=== PATIENT | female | born 1945 | race Two or more races ===

== ENCOUNTER 2020-03-02 08:40 | Outpatient (REF) | payer MEDICARE, SELFPAY | END 2020-03-02 08:41 | disposition home or self-care (01) | LOC: HO.LAB 08:40 | PROVIDERS: Visit Provider Internal Medicine | DX: Z20.828 Contact with and (suspected) exposure to other viral communicable diseases (principal) | CPT/HCPCS: 87635 ==

== ENCOUNTER 2020-09-12 09:29 | Day surgery (SDC) | payer MEDICARE, SELFPAY ==
[2020-09-07 10:26] VITALS: BMI 35.4
--- NOTE | 2020-09-07 12:16 | MHC.SHP ---
Pre-Procedural Eval Section A The patient is an INPATIENT: No The History & Physical has been completed within 30 days and I have reviewed it.: Yes Section B Chief Complaint: Cataract Right Eye Allergies: Allergies Allergy/AdvReac Type Severity Reaction Status Date / Time codeine [Codeine] Allergy Mild RASH Verified 09/06/20 14:16 meperidine [From Demerol] Allergy Mild RASH Verified 09/06/20 14:16 Plan Diagnosis/Plan: Unchanged I have reviewed the history and physical and performed a pertinent physical examination on my patient. No changes have occurred unless specified.
--- NOTE | 2020-09-09 09:52 | HO.ANESPROP2 ---
Documented by User: Cyndy Larose 09/09/20 09:52 HPI - Anesthesia Eval Consult details Narrative: 75yo F for Right Cataract Extraction IOL Insertion No prev cataract on record PCP cleared [facility] Past Medical History Medical History Arthritis Depression Diabetes Elevated cholesterol HTN (hypertension) Hx of transfusion of packed red blood cells Surgical History Surgical History H/O colonoscopy History of carpal tunnel release History of evacuation of hematoma History of total bilateral knee replacement Social History Social History Smoking Status: Never smoker Use of substances other than those prescribed or required for medical reasons: No Have you been hit, kicked, punched, or otherwise hurt by someone within the past year? If so, by whom?: No Advance Directives Information Provided: No Recently lost weight without trying: No Nutrition Risks: No Nutritional Risk Meds Allergies Allergy/AdvReac Type Severity Reaction Status Date / Time codeine [Codeine] Allergy Mild RASH Verified 09/06/20 14:16 meperidine [From Demerol] Allergy Mild RASH Verified 09/06/20 14:16 Home Medications Medication Instructions Recorded Confirmed Last Taken Type acetaminophen 1 - 2 tab PO TID PRN 09/06/20 09/07/20 Unknown History amlodipine 2.5 mg PO DAILY 09/06/20 09/07/20 Unknown History atorvastatin 80 mg PO BEDTIME 09/06/20 09/07/20 Unknown History docusate sodium [DOK] 100 mg PO BID 09/06/20 09/07/20 Unknown History hydrochlorothiazide 25 mg PO DAILY 09/06/20 09/07/20 Unknown History metformin 500 mg PO DAILY 09/06/20 09/07/20 Unknown History supsokujmuxz-piahjorh-xjmomi 1 tab PO DAILY 09/06/20 09/07/20 Unknown History [Cerovite Senior] venlafaxine 75 mg PO QAM 09/06/20 09/07/20 Unknown History Exam Exam Date and Time: September 09, 2020 0952 Height,Weight and Vital Signs: Height 5 ft 3 in Weight 90.718 kg Assessment and Plan Assessment Anesthesia Assessment: Chart Reviewed Documented by User: Sharonda Anderson 09/12/20 11:36 PMFSH Past Medical History Medical History Arthritis Depression Diabetes Elevated cholesterol HTN (hypertension) Hx of transfusion of packed red blood cells Family History Family history of problems with anesthesia: No Surgical History Surgical History H/O colonoscopy History of carpal tunnel release History of evacuation of hematoma History of total bilateral knee replacement History of Problems with Anesthesia: No Social History Social History Smoking Status: Never smoker Use of substances other than those prescribed or required for medical reasons: No Have you been hit, kicked, punched, or otherwise hurt by someone within the past year? If so, by whom?: No Advance Directives Information Provided: No Recently lost weight without trying: No Nutrition Risks: No Nutritional Risk Meds Allergies Allergy/AdvReac Type Severity Reaction Status Date / Time codeine [Codeine] Allergy Mild RASH Verified 09/06/20 14:16 meperidine [From Demerol] Allergy Mild RASH Verified 09/06/20 14:16 Home Medications Medication Instructions Recorded Confirmed Last Taken Type acetaminophen 1 - 2 tab PO TID PRN 09/06/20 09/07/20 Unknown History amlodipine 2.5 mg PO DAILY 09/06/20 09/07/20 Unknown History atorvastatin 80 mg PO BEDTIME 09/06/20 09/07/20 Unknown History docusate sodium [DOK] 100 mg PO BID 09/06/20 09/07/20 Unknown History hydrochlorothiazide 25 mg PO DAILY 09/06/20 09/07/20 Unknown History metformin 500 mg PO DAILY 09/06/20 09/07/20 Unknown History bpeoiyhtrqad-qccougqa-vfotrw 1 tab PO DAILY 09/06/20 09/07/20 Unknown History [Cerovite Senior] venlafaxine 75 mg PO QAM 09/06/20 09/07/20 Unknown History Exam Height,Weight and Vital Signs: Vital Signs Temp Pulse Resp BP Pulse Ox 09/12/20 11:02 97.4 F 81 20 149/75 H 98 Pertinent Lab Results Pertinent Lab Results: Lab Results 09/12/20 Range/Units 10:52 POC Glucose 97 (60-115) mg/dL Airway Mallampati Class: II TM Dist: >3cm Neck ROM: Full Heart: RRR Lungs: CTAB Assessment and Plan Assessment Anesthesia Assessment: Anesthesia Plan Discussed and Chart Reviewed Final Anesthetic Review NPO: Yes ASA Class: II Final Preanesthetic Review: No Changes in Pt Med Stat, Meds/Allgs Chart Reviewed, Consent Obtained/Reviewed and Anes Risks/Benef Reviewed Patient Risk: Low Procedure Risk: Low Assessment/Block/Sedation in SS: Assess/Block/Sedation-SS Anesthetic Plan Anesthetic Plan: MAC: Disposition: Standard PACU
[2020-09-12 10:58] LABS: Glucose, Whole Blood 97 mg/dL (60-115)
[2020-09-12 11:02] VITALS: BP 149/75; PULSE 81; RESP 20; TEMP 36.3; O2SAT 98
[2020-09-12] MEDS: Lactated Ringers 500 ML 50 ML IV (11:20)
[2020-09-12] MEDS: Tetracaine HCl/PF 0.5% Oph Sol 4 ML DROPS 1 DROP EYE-RIGHT (11:21)
[2020-09-12] MEDS: Phenylephrine HCL 2.5% Oph SoL 2 ML BOTTLE 1 DROP EYE-RIGHT ×3 (11:22→11:28)
[2020-09-12] MEDS: Tropicamide 1 % Ophth Sol 3 ML BTL 1 DROP EYE-RIGHT ×3 (11:24→11:30)
--- NOTE | 2020-09-12 12:22 | HO.PNOPHT ---
Ophthalmology Procedure Procedure Date of Service: 09/12/20 Ophthalmology Viscoelastic: Neida Zamorat Dual Pack Pro Ophthalmology Lenses: TECHIGINIO [id number] (27) Procedure Notes: PREOPERATIVE DIAGNOSIS: Decreased visual acuity right eye secondary to cataract POSTOPERATIVE DIAGNOSIS: Same PROCEDURE: Right cataract extraction with intraocular lens insertion SURGEON: Edenilson Collier M.D. ANESTHESIA: Topical/MAC ESTIMATED BLOOD LOSS: None COMPLICATIONS: None After obtaining informed consent, the patient was brought to the operating room suite and placed in the supine position. After adequate sedation per anesthesia, topical drops of Tetracaine were given to the right eye. The eye was then prepped and draped in the usual sterile fashion. The operating room microscope was then positioned over the operative eye and a lid speculum placed. A paracentesis was created. Viscoelastic was then instilled into the anterior chamber. A three plane incision was then created temporally, utilizing a 2.85 mm keratome. Capsulotomy forceps were then utilized to create a circular tear capsulotomy. Hydrodissection and hydrodelineation were carried out until adequate mobilization of the nucleus occurred. Phacoemulsification was then utilized to remove the dense central nucleus followed by removal of the cortical material utilizing the automated aspiration irrigation unit. Viscoelastic was instilled into the posterior capsular bag followed by placement of a posterior chamber intraocular lens without difficulty. The residual Viscoelastic was then removed utilizing the automated IA machine. The wound was checked and found to be watertight. The patient tolerated the procedure well and the lid speculum was removed. Intracameral injection of Vigamox 0.1 mL followed by a subtenon injection of Kenalog-40 0.2 mL were administered. The patient will be seen in the a.m.
[2020-09-12 12:26] VITALS: BP 155/70; PULSE 66; RESP 16; TEMP 36.2; O2SAT 97
== END 2020-09-12 12:44 | disposition home or self-care (01) ==
PROVIDERS: Visit Provider Ophthalmology
PROC: (CPT 66985; principal; 2020-09-12 11:40)
DX: H25.11 Age-related nuclear cataract, right eye (principal); H54.7 Unspecified visual loss; Z88.8 Allergy status to other drugs, medicaments and biological substances; E11.22 Type 2 diabetes mellitus with diabetic chronic kidney disease; I12.9 Hypertensive chronic kidney disease with stage 1 through stage 4 chronic kidney disease, or unspecified chronic kidney disease; N18.2 Chronic kidney disease, stage 2 (mild); Z79.84 Long term (current) use of oral hypoglycemic drugs; Z79.899 Other long term (current) drug therapy
CPT/HCPCS: 66984; 82947; J2250; J3010; J3300; V2632

== ENCOUNTER 2020-09-26 09:46 | Day surgery (SDC) | payer MEDICARE, SELFPAY ==
[2020-09-07 10:32] VITALS: BMI 35.4
--- NOTE | 2020-09-21 12:23 | HO.ANESPROP2 ---
Documented by User: Cyndy Larose 09/21/20 12:24 HPI - Anesthesia Eval Consult details Narrative: 75yo F for Left Cataract Extraction IOL Insertion Right eye 5/3 with TIVA: Fent 25, MIdaz 1 PCP cleared [facility] Past Medical History Medical History Arthritis Depression Diabetes Elevated cholesterol HTN (hypertension) Hx of transfusion of packed red blood cells Family History Family history of problems with anesthesia: No Surgical History Surgical History H/O colonoscopy History of carpal tunnel release History of evacuation of hematoma History of total bilateral knee replacement History of Problems with Anesthesia: No Social History Social History Smoking Status: Never smoker Use of substances other than those prescribed or required for medical reasons: No Advance Directives Information Provided: No Recently lost weight without trying: No Eating poorly because of decreased appetite: No Nutrition Risks: No Nutritional Risk Meds Allergies Allergy/AdvReac Type Severity Reaction Status Date / Time codeine [Codeine] Allergy Mild RASH Verified 09/06/20 14:16 meperidine [From Demerol] Allergy Mild RASH Verified 09/06/20 14:16 Home Medications Medication Instructions Recorded Confirmed Last Taken Type acetaminophen 1 - 2 tab PO TID PRN 09/06/20 09/07/20 Unknown History amlodipine 2.5 mg PO DAILY 09/06/20 09/12/20 09/12/20 07:15 History 2.5mg atorvastatin 80 mg PO BEDTIME 09/06/20 09/07/20 Unknown History docusate sodium [DOK] 100 mg PO BID 09/06/20 09/07/20 Unknown History hydrochlorothiazide 25 mg PO DAILY 09/06/20 09/07/20 Unknown History metformin 500 mg PO DAILY 09/06/20 09/07/20 Unknown History uiphugsyfdjn-mcynlqnw-trkkat 1 tab PO DAILY 09/06/20 09/07/20 Unknown History [Cerovite Senior] venlafaxine 75 mg PO QAM 09/06/20 09/12/20 09/12/20 07:15 History 75 mg Exam Exam Date and Time: September 21, 2020 1223 Height,Weight and Vital Signs: Height 5 ft 3 in Weight 90.718 kg Assessment and Plan Assessment Anesthesia Assessment: Chart Reviewed Documented by User: Sharonda Anderson 09/26/20 12:09 PMFSH Past Medical History Medical History Arthritis Depression Diabetes Elevated cholesterol HTN (hypertension) Hx of transfusion of packed red blood cells Surgical History Surgical History H/O colonoscopy History of carpal tunnel release History of evacuation of hematoma History of total bilateral knee replacement Social History Social History Smoking Status: Never smoker Use of substances other than those prescribed or required for medical reasons: No Advance Directives Information Provided: No Recently lost weight without trying: No Eating poorly because of decreased appetite: No Nutrition Risks: No Nutritional Risk Meds Allergies Allergy/AdvReac Type Severity Reaction Status Date / Time codeine [Codeine] Allergy Mild RASH Verified 09/06/20 14:16 meperidine [From Demerol] Allergy Mild RASH Verified 09/06/20 14:16 Home Medications Medication Instructions Recorded Confirmed Last Taken Type acetaminophen 1 - 2 tab PO TID PRN 09/06/20 09/07/20 Unknown History amlodipine 2.5 mg PO DAILY 09/06/20 09/12/20 09/12/20 07:15 History 2.5mg atorvastatin 80 mg PO BEDTIME 09/06/20 09/07/20 Unknown History docusate sodium [DOK] 100 mg PO BID 09/06/20 09/07/20 Unknown History hydrochlorothiazide 25 mg PO DAILY 09/06/20 09/07/20 Unknown History metformin 500 mg PO DAILY 09/06/20 09/07/20 Unknown History eybuqpcvgbsi-kgmqfgoy-prvrsc 1 tab PO DAILY 09/06/20 09/07/20 Unknown History [Cerovite Senior] venlafaxine 75 mg PO QAM 09/06/20 09/12/20 09/12/20 07:15 History 75 mg Exam Height,Weight and Vital Signs: Vital Signs Temp Pulse Resp BP Pulse Ox 09/26/20 11:55 97.6 F 72 20 142/68 H 98 Pertinent Lab Results Pertinent Lab Results: Lab Results 09/26/20 Range/Units 11:17 POC Glucose 105 (60-115) mg/dL Narrative Narrative: Patient states that she has a DNR order in place but would like to suspend this alfonso-operatively. Periop DNR form discussed and signed by patient. Airway Mallampati Class: II TM Dist: >3cm Neck ROM: Full Heart: RRR Lungs: CTAB Assessment and Plan Assessment Anesthesia Assessment: Anesthesia Plan Discussed and Chart Reviewed Final Anesthetic Review NPO: Yes ASA Class: II Final Preanesthetic Review: No Changes in Pt Med Stat, Meds/Allgs Chart Reviewed, Consent Obtained/Reviewed and Anes Risks/Benef Reviewed Patient Risk: Low Procedure Risk: Low Assessment/Block/Sedation in SS: Assess/Block/Sedation-SS Anesthetic Plan Anesthetic Plan: MAC: Disposition: Standard PACU
--- NOTE | 2020-09-21 14:38 | MHC.SHP ---
Pre-Procedural Eval Section A The patient is an INPATIENT: No The History & Physical has been completed within 30 days and I have reviewed it.: Yes Section B Chief Complaint: Cataract Left Eye Allergies: Allergies Allergy/AdvReac Type Severity Reaction Status Date / Time codeine [Codeine] Allergy Mild RASH Verified 09/06/20 14:16 meperidine [From Demerol] Allergy Mild RASH Verified 09/06/20 14:16 Plan Diagnosis/Plan: Unchanged I have reviewed the history and physical and performed a pertinent physical examination on my patient. No changes have occurred unless specified.
[2020-09-26 11:21] LABS: Glucose, Whole Blood 105 mg/dL (60-115)
[2020-09-26] MEDS: Tetracaine HCl/PF 0.5% Oph Sol 4 ML DROPS 1 DROP EYE-LEFT (11:40)
[2020-09-26] MEDS: Tropicamide 1 % Ophth Sol 3 ML BTL 1 DROP EYE-LEFT ×3 (11:41→11:49)
[2020-09-26] MEDS: Phenylephrine HCL 2.5% Oph SoL 2 ML BOTTLE 1 DROP EYE-LEFT ×3 (11:45→11:52)
[2020-09-26] MEDS: Lactated Ringers 500 ML 50 ML IV (11:46)
[2020-09-26 11:55] VITALS: BP 142/68; PULSE 72; RESP 20; TEMP 36.4; O2SAT 98
--- NOTE | 2020-09-26 11:58 | HO.PNOPHT ---
Ophthalmology Procedure Procedure Date of Service: 09/26/20 Ophthalmology Viscoelastic: Healdemarcus Duet Dual Pack Pro Ophthalmology Lenses: TECHIGINIO [id number] (26.5) Procedure Notes: PREOPERATIVE DIAGNOSIS: Decreased visual acuity left eye secondary to cataract POSTOPERATIVE DIAGNOSIS: Same PROCEDURE: Left cataract extraction with intraocular lens insertion SURGEON: Edenilson Collier M.D. ANESTHESIA: Topical/MAC ESTIMATED BLOOD LOSS: None COMPLICATIONS: None After obtaining informed consent, the patient was brought to the operation room suite and placed in the supine position. After adequate sedation per anesthesia, topical drops of Tetracaine were given to the left eye. The eye was then prepped and draped in the usual sterile fashion. The operating room microscope was then positioned over the operative eye and a lid speculum placed. A paracentesis was created. Viscoelastic was then instilled into the anterior chamber. A three plane incision was then created temporally, utilizing a 2.85 mm keratome. Capsulotomy forceps were then utilized to create a circular tear capsulotomy. Hydrodissection and hydrodelineation were carried out until adequate mobilization of the nucleus occurred. Phacoemulsification was then utilized to remove the dense central nucleus followed by removal of the cortical material utilizing the automated aspiration irrigation unit. Viscoat elastic was instilled into the posterior capsular bag followed by placement of a posterior chamber intraocular lens without difficulty. The residual Viscoat elastic was then removed utilizing the automated IA machine. The wound was check and found to be watertight. The patient tolerated the procedure well and the lid speculum was removed. Intracameral injection of Vigamox 0.1 mL followed by a subtenon injection of Kenalog-40 0.2 mL were administered. The patient will be seen in the a.m.
[2020-09-26] MEDS: Acetaminophen 325 MG TABLET 650 MG PO (12:28)
[2020-09-26 12:29] VITALS: BP 138/68; PULSE 74; RESP 16; TEMP 36.7; O2SAT 97
== END 2020-09-26 13:54 | disposition home or self-care (01) ==
PROVIDERS: Visit Provider Ophthalmology
PROC: (CPT 66985; principal; 2020-09-26 12:30)
DX: H25.12 Age-related nuclear cataract, left eye (principal); E11.9 Type 2 diabetes mellitus without complications; I10 Essential (primary) hypertension; Z79.84 Long term (current) use of oral hypoglycemic drugs; Z79.899 Other long term (current) drug therapy
CPT/HCPCS: 66984; 82947; J2250; J3300; V2632

== ENCOUNTER 2020-10-26 12:07 | Outpatient (REF) | payer MEDICARE, SELFPAY ==
--- NOTE | ~2020-10-26 | XR_ITS ---
EXAMINATION: KNEE X-RAY CLINICAL INFORMATION: Left knee pain COMPARISON: Previous x-ray most recent October 2018 TECHNIQUE: AP standing view of both knees and lateral and sunrise view of the left knee FINDINGS: Left: There is a left 2 component knee replacement in satisfactory position. No fracture, dislocation or x-ray evidence of loosening is seen. There is no joint effusion. There is soft tissue arterial calcification. There is a right knee replacement in satisfactory position. XR/XR knee standing BI IMPRESSION: Satisfactory appearance of left knee replacement.
--- NOTE | ~2020-10-26 | XR_ITS ---
EXAMINATION: KNEE X-RAY CLINICAL INFORMATION: Left knee pain COMPARISON: Previous x-ray most recent October 2018 TECHNIQUE: AP standing view of both knees and lateral and sunrise view of the left knee FINDINGS: Left: There is a left 2 component knee replacement in satisfactory position. No fracture, dislocation or x-ray evidence of loosening is seen. There is no joint effusion. There is soft tissue arterial calcification. There is a right knee replacement in satisfactory position. XR/XR knee LT 2V IMPRESSION: Satisfactory appearance of left knee replacement.
== END 2020-10-26 12:08 | disposition home or self-care (01) ==
LOC: HO.XRAY 12:07
PROVIDERS: Visit Provider Orthopaedic Surgery
DX: Z96.653 Presence of artificial knee joint, bilateral (principal)
CPT/HCPCS: 73560; 73565; 99212

== ENCOUNTER 2020-11-12 16:01 | Emergency (ER) | payer MEDICARE, SELFPAY ==
--- NOTE | ~2020-11-12 | XR_ITS ---
EXAMINATION: XR CHEST CLINICAL INFORMATION: Chest and back pain COMPARISON: September 19, 2019 TECHNIQUE: 2 views of the chest were obtained. FINDINGS: There is no evidence of acute parenchymal disease, pneumothorax, or pleural effusion. Heart normal size. No evidence of pulmonary edema. No thoracic vertebral body compression fracture is appreciated. There has been resection of the distal right clavicle with what appears to be some widening of the coracoclavicular space. XR/XR chest 2V IMPRESSION: No acute disease.
--- NOTE | ~2020-11-12 | CT_ITS ---
EXAMINATION: CT ANGIOGRAM OF THE CHEST WITH AND WITHOUT CONTRAST (CT PULMONARY ANGIOGRAM FOR PE) CLINICAL INFORMATION: Chest and back pain, tachycardia COMPARISON: Portions of a previous study 09/19/19 TECHNIQUE: Prior to contrast administration, noncontrast localization images were obtained. Subsequently, multidetector volumetric imaging was performed from the thoracic inlet to below the diaphragms following the administration of 70 mL Omnipaque 350 intravenous contrast. No contrast reaction reported Sagittal, coronal, and MIP oblique sagittal reformatted images were obtained on the CT workstation, uploaded to PACS, and reviewed. This CT examination was performed using dose optimization techniques as appropriate, variously including the following: *Automated exposure control *Adjustment of mA and/or kV according to patient size (this includes techniques or standardized protocols for targeted exams where dose is matched to indication/reason for exam; i.e. extremities or head) *Use of iterative reconstruction technique Total exam dose-length product 389 mGy-cm FINDINGS: Digital Postdoctoral Research Fellow: Devices overlie the patient. No large area of consolidation or alveolar edema. QUALITY OF STUDY/CONTRAST BOLUS: Satisfactory. PULMONARY ARTERIES: No pulmonary embolus demonstrated. The main pulmonary arteries are normal caliber. THORACIC AORTA: No aneurysm or dissection. LUNG: No consolidation. No edema. Minor nonspecific dependent lung base densities could be atelectasis. PLEURA: No pleural effusion or pneumothorax. MEDIASTINUM: There are no enlarged mediastinal or hilar lymph nodes. There is no suspicious abnormality of the esophagus. No pericardial fluid. No evidence of septal bowing or right heart strain. CHEST WALL/AXILLA: No axillary or internal mammary lymphadenopathy. OSSEOUS STRUCTURES: No acute or suspicious osseous abnormality. Chronic appearing abnormality of the right AC joint. UPPER ABDOMEN: Unremarkable. No reflux of contrast into the hepatic veins to suggest elevated right heart pressures. CT/CT angio chest PE protocol IMPRESSION: No pulmonary embolus demonstrated. No pneumonia or edema. VTE: negative
[2020-11-12 16:06] VITALS: BP 183/78; PULSE 92; RESP 18; TEMP 36.7; O2SAT 98; BMI 34.4
--- NOTE | 2020-11-12 16:37 | ED_ITS ---
HPI - General Adult General Chief complaint: General Medical Stated complaint: Back and both side pain Time Seen by Provider: 11/12/20 16:37 Source: patient and family Mode of arrival: ambulatory Limitations: language barrier History of Present Illness HPI narrative: 75-year-old female with past medical history of diabetes, hypertension, hyperlipidemia, and depression presents with 3 days of thoracic back pain radiating to bilateral flanks with shortness of breath and palpitations. She states this feels like a pulling pain throughout her back that gets worse on inspiration. She did not take any hormones, does not report any recent flights, and denies chest pressure, abdominal pain, abdominal distention, nausea, vomiting, diarrhea, constipation, dysuria, hematuria, melena, hematochezia, edema, weakness, dizziness, lightheadedness, and loss of balance. Onset (ago): day(s) ( Three) Location: back Radiation: flank Severity: moderate Severity scale (1-10): 6 Quality: aching and crushing Pain Consistency: constant Relieving factors: rest Exacerbating factors: movement Associated symptoms: chest pain and shortness of breath Treatments prior to arrival: none Related Data Home Medications Medication Instructions Recorded Confirmed acetaminophen 1 - 2 tab PO TID PRN 09/06/20 09/07/20 amlodipine 2.5 mg PO DAILY 09/06/20 09/12/20 atorvastatin 80 mg PO BEDTIME 09/06/20 09/07/20 docusate sodium [DOK] 100 mg PO BID 09/06/20 09/07/20 hydrochlorothiazide 25 mg PO DAILY 09/06/20 09/07/20 metformin 500 mg PO DAILY 09/06/20 09/07/20 [id number] 1 tab PO DAILY 09/06/20 09/07/20 [Cerovite Senior] venlafaxine 75 mg PO QAM 09/06/20 09/12/20 Previous Rx's Medication Instructions Recorded ibuprofen 600 mg PO TID PRN #30 tab 11/12/20 Allergies Allergy/AdvReac Type Severity Reaction Status Date / Time codeine [Codeine] Allergy Mild RASH Verified 11/12/20 16:06 meperidine [From Demerol] Allergy Mild RASH Verified 11/12/20 16:06 Review of Systems Review of Systems: Constitutional: No Fever, No Chills ENT/Mouth: No Ear Pain, No Hoarseness, No sore throat Eyes: No Eye Pain, No Swelling, No Redness, No Foreign Body Cardiovascular: thoracic back pain, No Chest Pain, No SOB Respiratory: No Cough, No Dyspnea Gastrointestinal: bilateral flank pain, No Nausea, No Vomiting, No Diarrhea, No abdominal Pain Genitourinary: No Dysuria, No Hematuria Musculoskeletal: positive back pain, No Myalgias, No Joint Swelling Skin: No Skin lacerations, No rash Neuro: No Weakness, No Numbness, No Paresthesias, No Loss of Consciousness, No Dizziness, No Headache Psych: No Anxiety/Panic, No Depression Heme/Lymph: no easy bruising, no Lymphadenopathy Endocrine: No Polyuria, No Polydipsia Yes all other systems are reviewed and are negative PMFSH Past Medical History Attestation statement: The following information was validated with the patient. Source: old records reviewed Medical History Arthritis Depression Diabetes Elevated cholesterol HTN (hypertension) Hx of transfusion of packed red blood cells Surgical History H/O colonoscopy History of carpal tunnel release History of evacuation of hematoma History of total bilateral knee replacement Social History Social History Alcohol intake: never Smoked in Last 30 Days: No Use of substances other than those prescribed or required for medical reasons: No Advance Directives: No Advance Directives Information Provided: Yes Physical Exam Vital Signs: Vital Signs: Last Vital Signs Temp 98.8 F 11/12/20 19:37 Pulse 84 11/12/20 22:10 Resp 16 11/12/20 22:10 BP 142/68 H 11/12/20 22:10 Pulse Ox 97 11/12/20 22:10 Body Mass Index 34.4 Appearance: Alert. Oriented X3. moderate distress. Head: Normal external exam. Normocephalic. Atraumatic. No Welsh signs noted. No raccoon eyes noted Eyes: PERRLA. EOMI. Conjunctiva and sclera normal. Eyelids normal. ENT: TM's Normal. Pharynx normal. Uvula midline. Moist mucous membranes. No trismus noted. No drooling noted. No muffled voice noted. Neck: Normal inspection. Neck supple. No adenopathy. Thyroid Normal. No meningeal signs. No neck mass noted. CVS: tachycardic heart rate and rhythm. Heart sound normal. No murmurs noted. Pulses equal to all extremities. Respiratory: No respiratory distress. Pain on inspiration. Breath sounds normal. No wheezes/rales/rhonchi noted. Chest nontender. No accessory muscle usage noted or decreased air movement noted. Abdomen: Soft and nontender. Bowel sounds normal in all 4 quadrants. No distention noted. No organomegaly noted. No visible injury noted. Back: No CVA tenderness. Full range of motion noted. no vertebral tenderness noted, Skin: Skin warm and dry. Normal skin color. Normal skin turgor. No rashes/lesions/lacerations noted. Extremities: No lower extremity edema. Extremities exhibit normal range of motion. Extremities nontender. Neuro: cranial nerves 2-12 intact, no focal neural deficits, strength 5/5 to all extremities, No motor deficit. No sensory deficit. Course Course Course Narrative: 75-year-old female presents with thoracic back pain with radiation to bilateral flanks, she does not have any abdominal tenderness, no CVA tenderness, patient does have shortness of breath and tachycardia. Will o rder CT PE to rule out embolism. Rule out ACS. AST, ALT, lipase are negative. EKG normal sinus, troponin 3.7, urinalysis is negative. Pain has completely resolved after Zofran and Toradol. This is most likely musculoskeletal. CT scan of the chest is negative for PE. Patient was advised to follow up with primary care physician. automotive parts interpreter utilized for all correspondence. Google translate utilized for discharge instructions. Medical Decision Making Differential Diagnosis Differential Diagnosis: AAA, cholelithiasis, cholecystitis, pancreatitis, ACS, musculoskeletal Medical Records Medical records reviewed: Yes I reviewed the patient's medical records. Lab Data Lab results reviewed: Yes I reviewed the patient's lab results. Result diagrams: 11/12/20 17:32 11/12/20 20:20 Labs: Lab Results 11/12/20 11/12/20 11/12/20 Range/Units 17:32 17:32 17:32 WBC 10.9 H (4.8-10.8) X10*3/uL RBC 4.61 (4.20-5.50) X10*6/uL Hgb 13.8 (12.0-16.0) g/dl Hct 41.7 (37-47) % MCV 90.5 (80-98) fL MCH 29.9 (27.0-33.0) pg MCHC 33.1 (31.0-35.0) g/dl RDW 12.5 (11.0-16.0) % Plt Count 275 (160-400) X10*3/uL MPV 11.2 (9.4-12.3) fL Immature Gran % (Auto) 0.4 (0.0-0.4) % Neut % (Auto) 71.1 (45-73) % Lymph % (Auto) 20.8 (20-40) % Arroyo % (Auto) 6.5 (2-11) % Eos % (Auto) 0.9 (0-4) % Baso % (Auto) 0.3 (0-2) % Lymph # (Auto) 2.3 (1.2-4.9) X10*3/uL [place] # (Auto) 0.7 (0.1-1.2) X10*3/uL Eos # (Auto) 0.1 (0.0-0.4) X10*3/uL Baso # (Auto) 0.0 (0.0-0.2) X10*3/uL Abs Immat Gran (auto) 0.04 H (0.00-0.03) X10*3/uL Absolute Neuts (auto) 7.8 (2.0-8.3) X10*3/uL Absolute Nucleated RBC 0.000 (0.0-0.012) X10*3/uL Nucleated RBC % (auto) 0.0 (0.0-0.2) /100WBC Sodium (135-145) mmol/L Potassium (3.3-5.1) mmol/L Chloride (96-108) mmol/L Carbon Dioxide (22-29) mmol/L Anion Gap (12-20) BUN (9-16) mg/dL Creatinine (0.5-1.4) mg/dL Estim Creat Clear Calc Estimated GFR Random Glucose (60-115) mg/dL Calcium (8.4-10.2) mg/dL Magnesium (1.6-2.6) mg/dL Total Bilirubin (0.0-1.0) mg/dL Direct Bilirubin (0.0-0.5) mg/dL AST (5-31) U/L ALT (0-31) U/L Alkaline Phosphatase (39-117) U/L Troponin I High Sens 3.7 (<3.5-17.0) ng/L Total Protein (6.5-8.0) g/dL Albumin (3.5-5.0) g/dL Lipase (8-78) U/L Urine Color YELLOW Urine Appearance CLEAR Urine pH 7.0 (5.0-8.0) Ur Specific Esmond 1.015 (1.005-1.025) Urine Protein NEG (NEG-TRACE) MG/DL Urine Glucose (UA) NEG (NEG) MG/DL Urine Ketones NEG (NEG) MG/DL Urine Blood TRACE (NEG) Urine Nitrite NEG (NEG) Ur Leukocyte Esterase NEG (NEG) Urine RBC 0-2 (0) /HPF Urine WBC 0-2 (0-4) /HPF Ur Squamous Epith Cells TRACE /LPF Urine Bacteria NONE /LPF 11/12/20 Range/Units 20:20 WBC (4.8-10.8) X10*3/uL RBC (4.20-5.50) X10*6/uL Hgb (12.0-16.0) g/dl Hct (37-47) % MCV (80-98) fL MCH (27.0-33.0) pg MCHC (31.0-35.0) g/dl RDW (11.0-16.0) % Plt Count (160-400) X10*3/uL MPV (9.4-12.3) fL Immature Gran % (Auto) (0.0-0.4) % Neut % (Auto) (45-73) % Lymph % (Auto) (20-40) % Arroyo % (Auto) (2-11) % Eos % (Auto) (0-4) % Baso % (Auto) (0-2) % Lymph # (Auto) (1.2-4.9) X10*3/uL [place] # (Auto) (0.1-1.2) X10*3/uL Eos # (Auto) (0.0-0.4) X10*3/uL Baso # (Auto) (0.0-0.2) X10*3/uL Abs Immat Gran (auto) (0.00-0.03) X10*3/uL Absolute Neuts (auto) (2.0-8.3) X10*3/uL Absolute Nucleated RBC (0.0-0.012) X10*3/uL Nucleated RBC % (auto) (0.0-0.2) /100WBC Sodium 139 (135-145) mmol/L Potassium 3.2 L (3.3-5.1) mmol/L Chloride 98 (96-108) mmol/L Carbon Dioxide 29 (22-29) mmol/L Anion Gap 15 (12-20) BUN 12 (9-16) mg/dL Creatinine 0.75 (0.5-1.4) mg/dL Estim Creat Clear Calc 70.4 Estimated GFR > 60 Random Glucose 117 H (60-115) mg/dL Calcium 9.5 (8.4-10.2) mg/dL Magnesium 2.1 (1.6-2.6) mg/dL Total Bilirubin 0.8 (0.0-1.0) mg/dL Direct Bilirubin 0.4 (0.0-0.5) mg/dL AST 14 (5-31) U/L ALT 13 (0-31) U/L Alkaline Phosphatase 108 (39-117) U/L Troponin I High Sens (<3.5-17.0) ng/L Total Protein 7.6 (6.5-8.0) g/dL Albumin 4.3 (3.5-5.0) g/dL Lipase 58 (8-78) U/L Urine Color Urine Appearance Urine pH (5.0-8.0) Ur Specific Esmond (1.005-1.025) Urine Protein (NEG-TRACE) MG/DL Urine Glucose (UA) (NEG) MG/DL Urine Ketones (NEG) MG/DL Urine Blood (NEG) Urine Nitrite (NEG) Ur Leukocyte Esterase (NEG) Urine RBC (0) /HPF Urine WBC (0-4) /HPF Ur Squamous Epith Cells /LPF Urine Bacteria /LPF Imaging Data CT PE: Attestation: I personally reviewed and interpreted this imaging study as follows: Radiologist's impression: EXAMINATION: CT ANGIOGRAM OF THE CHEST WITH AND WITHOUT CONTRAST (CT PULMONARY ANGIOGRAM FOR PE) CLINICAL INFORMATION: Chest and back pain, tachycardia COMPARISON: Portions of a previous study 09/19/19 TECHNIQUE: Prior to contrast administration, noncontrast localization images were obtained. Subsequently, multidetector volumetric imaging was performed from the thoracic inlet to below the diaphragms following the administration of 70 mL Omnipaque 350 intravenous contrast. No contrast reaction reported Sagittal, coronal, and MIP oblique sagittal reformatted images were obtained on the CT workstation, uploaded to PACS, and reviewed. This CT examination was performed using dose optimization techniques as appropriate, variously including the following: *Automated exposure control *Adjustment of mA and/or kV according to patient size (this includes techniques or standardized protocols for targeted exams where dose is matched to indication/reason for exam; i.e. extremities or head) *Use of iterative reconstruction technique Total exam dose-length product 389 mGy-cm FINDINGS: Digital Statistical Geneticist: Devices overlie the patient. No large area of consolidation or alveolar edema. QUALITY OF STUDY/CONTRAST BOLUS: Satisfactory. PULMONARY ARTERIES: No pulmonary embolus demonstrated. The main pulmonary arteries are normal caliber. THORACIC AORTA: No aneurysm or dissection. LUNG: No consolidation. No edema. Minor nonspecific dependent lung base densities could be atelectasis. PLEURA: No pleural effusion or pneumothorax. MEDIASTINUM: There are no enlarged mediastinal or hilar lymph nodes. There is no suspicious abnormality of the esophagus. No pericardial fluid. No evidence of septal bowing or right heart strain. CHEST WALL/AXILLA: No axillary or internal mammary lymphadenopathy. OSSEOUS STRUCTURES: No acute or suspicious osseous abnormality. Chronic appearing abnormality of the right AC joint. UPPER ABDOMEN: Unremarkable. No reflux of contrast into the hepatic veins to suggest elevated right heart pressures. CT/CT angio chest PE protocol IMPRESSION: No pulmonary embolus demonstrated. No pneumonia or edema. VTE: negative Chest x-ray: Attestation: I personally reviewed and interpreted this imaging study as follows: Radiologist's impression: EXAMINATION: XR CHEST CLINICAL INFORMATION: Chest and back pain COMPARISON: September 19, 2019 TECHNIQUE: 2 views of the chest were obtained. FINDINGS: There is no evidence of acute parenchymal disease, pneumothorax, or pleural effusion. Heart normal size. No evidence of pulmonary edema. No thoracic vertebral body compression fracture is appreciated. There has been resection of the distal right clavicle with what appears to be some widening of the coracoclavicular space. XR/XR chest 2V IMPRESSION: No acute disease. ECG Data Attestation: I personally reviewed and interpreted this ECG as follows: Prior ECG tracings: available for review Interpretation: Vent. rate 79 BPM MS interval 148 ms QRS duration 86 ms QT/QTc 392/449 ms P-R-T axes 70 -29 49 Normal sinus rhythm Junctional ST depressio n, probably normal Borderline ECG When compared with ECG of 19-SEP-2019 09:44, ST now depressed in Lateral leads Scores Heart Score History: -0- slightly suspicious ECG: -2- significant ST-deviation Age: -1- >45 - <65 Risk factory: -1- 1 or 2 risk factors Troponin: -0- < or = normal limit Score: 4 Risk: 16.6% Discharge Plan Discharge Clinical Impression: Non-cardiac chest pain Back pain Qualifiers: Back pain location: thoracic back pain Chronicity: acute Back pain laterality: midline Qualified Code(s): M54.6 - Pain in thoracic spine Patient Disposition: Home, Self-Care Instructions: Chest Pain (ED), Musculoskeletal Pain (ED), Thoracic Pain (ED) Additional Instructions: fue evaluado por dolor en el pecho y la espalda tor?cica. La angiograf?a por TC es negativa para hallazgos agudos. EKG es un ritmo sinusal normal. Las enzimas card?acas son negativas. Staci valores de laboratorio no fueron notables. [place] posiblemente podr?a ser un dolor muscular esquel?janny. Julia un seguimiento con patel m?dico de atenci?n primaria para renate evaluaci?n adicional. Mikey por elegir hayden departamento de emergencias para patel evaluaci?n. Julia un seguimiento con patel m?dico de atenci?n primaria seg?n sea necesario. Regrese al departamento de emergencias por cualquier s?ntoma nuevo, preocupante o que empeore. you were evaluated for chest and thoracic back pain. CT angiogram is negative for acute findings. EKG is normal sinus rhythm. Cardiac enzymes are negative. Your lab values were unremarkable. This could possibly be muscular skeletal pa in. Please follow-up with her primary care physician for further evaluation. Thank you for choosing this emergency department for evaluation. Please follow-up with primary care physician as needed. Return to the emergency department for any new, concerning, or worsening symptoms. Prescriptions: New ibuprofen 600 mg tablet 600 mg PO TID PRN (Reason: pain) Qty: 30 RF: 0 No Action atorvastatin 80 mg tablet 80 mg PO BEDTIME RF: 0 venlafaxine 75 mg capsule,extended release 24hr 75 mg PO QAM RF: 0 amlodipine 2.5 mg tablet 2.5 mg PO DAILY RF: 0 acetaminophen 500 mg tablet 1 - 2 tab PO TID PRN (Reason: Pain) RF: 0 docusate sodium [DOK] 100 mg capsule 100 mg PO BID RF: 0 hydrochlorothiazide 25 mg tablet 25 mg PO DAILY RF: 0 metformin 500 mg tablet extended release 24 hr 500 mg PO DAILY RF: 0 Cerovite Senior Tablet 1 tab PO DAILY RF: 0 Interventions: ED Discharge Assessment Last Done: 11/12/20 22:11 Discharge Date/Time: 11/12/20 22:12
--- NOTE | 2020-11-12 16:47 | ECG_ITS ---
Test Reason : BACK PAIN Blood Pressure : / mmHG Vent. Rate : 079 BPM Atrial Rate : 079 BPM P-R Int : 148 ms QRS Dur : 086 ms QT Int : 392 ms P-R-T Axes : 070 -29 049 degrees QTc Int : 449 ms Normal sinus rhythm Borderline ECG When compared with ECG of 19-SEP-2019 09:44, ST now depressed in Lateral leads Referred By: Eliza García Electronically Signed By:CLINT CAUSEY MD
[2020-11-12] MEDS: ondansetron HCL 4 MG/2 ML VIAL IVPUSH (17:33)
[2020-11-12] MEDS: Ketorolac Tromethamine 30 MG/ML VIAL IVPUSH (17:33)
[2020-11-12 17:37] VITALS: BP 153/77; PULSE 86; RESP 18; TEMP 37.3; O2SAT 98
--- NOTE | 2020-11-12 17:38 | PC.NURSE ---
describing upper mid back pain radiating around chest to flanks.
--- NOTE | 2020-11-12 17:39 | PC.NURSE ---
denies dizziness. skin pwd. no chest pain at this time. aware ofplan of care.
--- NOTE | 2020-11-12 17:40 | PC.NURSE ---
bps are the same bilat. 153/77 on left. 153/76 on right
[2020-11-12 17:47] LABS: MANUAL DIFF FLAG NO
[2020-11-12 17:49] LABS: Basophils Percent Auto 0.3 % (0-2); Eosinophils Absolute Auto 0.1 X10*3/uL (0.0-0.4); Eosinophils Percent Auto 0.9 % (0-4); Hematocrit 41.7 % (37-47); Hemoglobin 13.8 g/dl (12.0-16.0); Imm Gran Abs Auto 0.04 X10*3/uL (0.00-0.03); Imm Gran Pct Auto 0.4 % (0.0-0.4); Lymphocytes Absolute Auto 2.3 X10*3/uL (1.2-4.9); Lymphocytes Percent Auto 20.8 % (20-40); Mean Corpuscular HGB Conc 33.1 g/dl (31.0-35.0); Mean Corpuscular Hemoglobin 29.9 pg (27.0-33.0); Mean Corpuscular Volume 90.5 fL (80-98); Mean Platelet Volume 11.2 fL (9.4-12.3); Monocytes Absolute Auto 0.7 X10*3/uL (0.1-1.2); Monocytes Percent Auto 6.5 % (2-11); Neutrophils Absolute Auto 7.8 X10*3/uL (2.0-8.3); Neutrophils Percent Auto 71.1 % (45-73); Platelet Count 275 X10*3/uL (160-400); Red Blood Count 4.61 X10*6/uL (4.20-5.50); Red Cell Distribution Width 12.5 % (11.0-16.0); White Blood Count 10.9 X10*3/uL (4.8-10.8)
[2020-11-12 18:22] LABS: Troponin-I High Sensitivity 3.7 ng/L (<3.5-17.0)
[2020-11-12 18:38] LABS: Glucose Urine UA NEG (NEG); Leukocyte Esterase Urine NEG (NEG); Nitrite Urine NEG (NEG); Specific Gravity - Urine 1.015 (1.005-1.025); Urine Blood TRACE (NEG); Urine Ketones NEG (NEG); Urine Protein NEG (NEG-TRACE)
[2020-11-12 18:50] LABS: Appearance Urine CLEAR; Color Urine YELLOW
[2020-11-12 19:37] VITALS: BP 142/65; PULSE 81; RESP 15; TEMP 37.1; O2SAT 96
--- NOTE | 2020-11-12 20:13 | PC.NURSE ---
This RN awaiting metabolic panel to result, notes it is not listed as rec'd in computer, calls lab to confirm receipt of labs. Per Joanie in lab, tube was hemolyzed and states we were just about to call to let you know. Labs to be recollected
[2020-11-12 20:23] LABS: RBC Urine 0-2 /HPF (0); Squamous Epithelial Cell Urine TRACE /LPF; WBC Urine 0-2 /HPF (0-4)
[2020-11-12 20:57] LABS: Alanine Aminotransferase 13 U/L (0-31); Albumin Level 4.3 g/dL (3.5-5.0); Alkaline Phosphatase 108 U/L (39-117); Anion Gap 15 (12-20); Aspartate Amino Transferase 14 U/L (5-31); Bilirubin Direct 0.4 mg/dL (0.0-0.5); Bilirubin Total 0.8 mg/dL (0.0-1.0); Blood Urea Nitrogen 12 mg/dL (9-16); Calcium 9.5 mg/dL (8.4-10.2); Carbon Dioxide 29 mmol/L (22-29); Chloride 98 mmol/L (96-108); Creatinine Clr Calc Pharmacy 70.4; Estimated Glomerular Filt Rate > 60; Glucose Random 117 mg/dL (60-115); Lipase 58 U/L (8-78); Magnesium 2.1 mg/dL (1.6-2.6); Potassium 3.2 mmol/L (3.3-5.1); Sodium 139 mmol/L (135-145); Total Protein 7.6 g/dL (6.5-8.0)
[2020-11-12] MEDS: iohexoL 350 MG/ML 100 ML INFUS..BTL IV (21:21)
[2020-11-12 22:10] VITALS: BP 142/68; PULSE 84; RESP 16; O2SAT 97
== END 2020-11-12 22:12 | disposition home or self-care (01) ==
PROVIDERS: Nurse Practitioner Family; Emergency Provider Internal Medicine
DX: R07.89 Other chest pain (principal); M54.6 Pain in thoracic spine; I10 Essential (primary) hypertension; E11.9 Type 2 diabetes mellitus without complications; Z79.84 Long term (current) use of oral hypoglycemic drugs; Z79.899 Other long term (current) drug therapy
CPT/HCPCS: 36415; 71046; 71275; 80048; 80076; 81001; 83690; 83735; 84484; 85025; 93005; 96374; 96375; 99285; J1885; J2405; Q9967

== ENCOUNTER 2020-11-23 08:54 | Outpatient (REF) | payer MEDICARE, SELFPAY ==
--- NOTE | ~2020-11-23 | MM_ITS ---
EXAMINATION: MM SCREENING DIGITAL BREAST TOMOSYNTHESIS, BILATERAL CLINICAL INFORMATION: Screening. Asymptomatic. The lifetime risk of breast cancer based on the Tyrer-Cuzick Model is 3%. COMPARISON: Mammography: 03/19/2019, 12/16/2017, 11/29/2016 TECHNIQUE: Digital breast tomosynthesis is performed in both the craniocaudal and mediolateral oblique views along with computer-aided detection (CAD). Synthesized 2D images are generated from the tomosynthesis. Additional left CC view is provided. FINDINGS: There are scattered areas of fibroglandular density (ACR BI-RADS breast composition Category b). There are no significant masses, abnormal calcifications, or other abnormalities. There are scattered bilateral vascular and some rim calcifications. No developing density. The axilla and skin contours are unremarkable. No significant changes. MM/MM tomosynthesis screening BI IMPRESSION: No mammographic evidence of malignancy. ASSESSMENT: BI-RADS 1: Negative RECOMMENDATION: Routine annual mammography screening. This patient's information was entered into a reminder system with a target due date for their next mammogram.
--- NOTE | ~2020-11-23 | MM_ITS ---
EXAMINATION: BONE DENSITOMETRY CLINICAL INDICATION: Screening for osteoporosis. COMPARISON: Previous BD dated 01/28/2015 and baseline BD dated 10/25/2006. TECHNIQUE: Using a [employer] DXA System (software version: 13.1) manufactured by [employer], dual-energy x-ray absorptiometry was performed of the lumbar spine and left hip. The images are of good technical quality. Summary results are attached. FINDINGS: AP SPINE L1-L2 (excluding L3 and L4): The data of L1-L4 has been changed to exclude the L3 and L4 vertebral bodies, because degenerative changes at these levels may cause overestimation of lumbar spine density. Current: BMD 1.254 g/cm2, Z-score 1.6, T-score 0.7, normal, 8.7% increase from previous, 9.5% increase from baseline (<5% change is not significant). Prior: BMD 1.154 g/cm2. Baseline: BMD 1.145 g/cm2. LEFT FEMUR, NECK: Current: BMD 0.934 g/cm2, Z-score 0.5, T-score -0.7, normal. Prior: BMD 0.914 g/cm2. Baseline: BMD 1.004 g/cm2. LEFT FEMUR, TOTAL: Current: BMD 1.001 g/cm2, Z-score 0.9, T-score 0.0, normal, 2.2% increase from previous, 7.6% decrease from baseline (<5% change is not significant). Prior: BMD 0.979 g/cm2. Baseline: BMD 1.083 g/cm2. IDENTIFIED RISK FACTORS: Height loss, thiazide, menopause. HISTORY OF FRACTURE: None listed. MEDICATIONS: None listed. MM/XR DEXA axial skeleton IMPRESSION: 1. DIAGNOSIS: Normal bone density based on the lowest T-score value of -0.7 in the femoral neck applying World Health Organization criteria. 2. 10-YEAR FRACTURE RISK PREDICTION, FRAX: Major osteoporotic fracture (clinical spine, forearm, hip or shoulder) 4.5%. Hip fracture 0.5%. 3. Treatment Recommendations: NOF guidelines recommend consideration for treatment in postmenopausal women and men age 50 and older presenting with the following: -A hip or vertebral (clinical or morphometric) fracture. -T-score less than or equal to -2.5 at the femoral neck or spine after appropriate evaluation to exclude secondary causes. -Low bone mass at the hip or spine and a 10-year fracture probability by FRAX of greater than or equal to 3% for hip fracture or greater than or equal to 20% for major osteoporotic fracture based on the [place] adapted WHO algorithm. 4. Other Recommendations: All treatment decisions require clinical judgment and consideration of individual patient factors, including patient preferences, comorbidities, previous drug use, risk factors not captured in the FRAX model (e.g. frailty, falls, vitamin D deficiency, increased bone turnover, interval significant decline in bone density) and possible under or overestimation of fracture risk by FRAX. FUTURE SCAN RECOMMENDATION: People with diagnosed cases of osteoporosis or at high risk for fracture should have regular bone mineral density tests. For patients eligible for Medicare, routine testing is allowed once every 2 years. The testing frequency can be increased to one year for patients who have rapidly progressing disease, those who are receiving or discontinuing medical therapy to restore bone mass, or have additional risk factors.
== END 2020-11-23 08:55 | disposition home or self-care (01) ==
LOC: HO.MAMMO 08:54
PROVIDERS: Visit Provider Nurse Practitioner Family
DX: Z12.31 Encounter for screening mammogram for malignant neoplasm of breast (principal); Z13.820 Encounter for screening for osteoporosis; Z78.0 Asymptomatic menopausal state; Z71.89 Other specified counseling; Z80.3 Family history of malignant neoplasm of breast
CPT/HCPCS: 77063; 77067; 77080

== ENCOUNTER 2021-01-05 10:28 | Emergency (ER) | payer MEDICARE, SELFPAY ==
--- NOTE | ~2021-01-05 | XR_ITS ---
EXAMINATION: XR ANKLE, LEFT XR FOOT, LEFT CLINICAL INFORMATION: Pain and swelling. Pain when ambulating. COMPARISON: Radiographs left foot 08/06/2012. TECHNIQUE: 2 views left ankle, 2 views left foot, and a lateral view of the combined ankle and foot in large [id number] image are performed. There are total of 5 views. FINDINGS: There is soft tissue swelling overlying both malleoli, greater medial side. The malleoli appear intact and the ankle mortise is symmetric. There is no ankle fracture or dislocation or visible ankle capsular effusion. The talar dome shows no osteochondral lesion. The subtalar joint is unremarkable. There are bulky large posterior and moderate bulky plantar calcaneal spurs similar to prior exam 2013. Again, there is scattered linear mineralization within the proximal to mid plantar fascia. No erosive change. Mild dorsal spurring distal talus again seen. The midfoot and forefoot show no fracture or dislocation or focal arthropathy. XR/XR ankle LT 2V IMPRESSION: 1. No fracture or dislocation or destructive process. 2. Bulky posterior and plantar calcaneal spurs with chronic mineralization proximal to mid plantar fascia.
--- NOTE | ~2021-01-05 | XR_ITS ---
EXAMINATION: XR ANKLE, LEFT XR FOOT, LEFT CLINICAL INFORMATION: Pain and swelling. Pain when ambulating. COMPARISON: Radiographs left foot 08/06/2012. TECHNIQUE: 2 views left ankle, 2 views left foot, and a lateral view of the combined ankle and foot in large [id number] image are performed. There are total of 5 views. FINDINGS: There is soft tissue swelling overlying both malleoli, greater medial side. The malleoli appear intact and the ankle mortise is symmetric. There is no ankle fracture or dislocation or visible ankle capsular effusion. The talar dome shows no osteochondral lesion. The subtalar joint is unremarkable. There are bulky large posterior and moderate bulky plantar calcaneal spurs similar to prior exam 2013. Again, there is scattered linear mineralization within the proximal to mid plantar fascia. No erosive change. Mild dorsal spurring distal talus again seen. The midfoot and forefoot show no fracture or dislocation or focal arthropathy. XR/XR foot LT 2V IMPRESSION: 1. No fracture or dislocation or destructive process. 2. Bulky posterior and plantar calcaneal spurs with chronic mineralization proximal to mid plantar fascia.
[2021-01-05 10:49] VITALS: BP 139/76; PULSE 100; RESP 18; TEMP 36.7; O2SAT 98; BMI 32.9
--- NOTE | 2021-01-05 10:57 | ED.GENADULT ---
HPI - General Adult General Chief complaint: Extremity Injury, Lower Stated complaint: left ankle swollen Time Seen by Provider: 01/05/21 10:57 Source: patient Mode of arrival: ambulatory Limitations: language barrier (shiatsu therapist used) History of Present Illness HPI narrative: 75-year-old female here today for complaining of left inner ankle redness and pain. Patient denies injury or any insect by. Denies any history of gout. Patient reports that her pain is the worst when she is trying to touch the area or when she is walking. Patient reports that even when she is sleeping the sheets are touching her foot it feels painful. Patient denies any other symptoms. Related Data Home Medications Medication Instructions Recorded Confirmed acetaminophen 500 mg tablet 1 - 2 tab PO TID PRN 09/06/20 09/07/20 amlodipine 2.5 mg tablet 2.5 mg PO DAILY 09/06/20 09/12/20 atorvastatin 80 mg tablet 80 mg PO BEDTIME 09/06/20 09/07/20 docusate sodium 100 mg capsule 100 mg PO BID 09/06/20 09/07/20 (DOK) hydrochlorothiazide 25 mg tablet 25 mg PO DAILY 09/06/20 09/07/20 metformin 500 mg tablet,extended 500 mg PO DAILY 09/06/20 09/07/20 release 24 hr [id number] 1 tab PO DAILY 09/06/20 09/07/20 tablet (Cerovite Senior) venlafaxine 75 mg capsule,extended 75 mg PO QAM 09/06/20 09/12/20 release 24 hr Previous Rx's Medication Instructions Recorded ibuprofen 600 mg tablet 600 mg PO TID PRN #30 tab 11/12/20 cephalexin 500 mg capsule 500 mg PO QID 5 Days #20 cap 01/05/21 prednisone 20 mg tablet 40 mg PO DAILY #10 tab 01/05/21 Allergies Allergy/AdvReac Type Severity Reaction Status Date / Time codeine [Codeine] Allergy Mild RASH Verified 01/05/21 10:52 meperidine [From Demerol] Allergy Mild RASH Verified 01/05/21 10:52 Review of Systems Review of Systems: Constitutional : No Weight loss, No Fever, No Chills, No Night Sweats, No Fatigue, No Malaise ENT/Mouth : No Hearing loss, No Ear Pain, No Nasal Congestion, No Sinus Pain, No Hoarseness, No sore throat, No Rhinorrhea, No Swallowing Difficulty Eyes: No Eye Pain, No Swelling, No Redness, No Foreign Body, No Discharge, No Vision Changes Cardiovascular : No Chest Pain, No SOB, No Dyspnea on Exertion, No Orthopnea, No Edema, No Palpitations Respiratory : No Cough, No Sputum, No Wheezing, No Smoke Exposure, No Dyspnea Gastrointestinal : No Nausea, No Vomiting, No Diarrhea, No Constipation, No abdominal Pain, No Hematochezia, No Melena Genitourinary : no irregular bleeding, No Dysuria, No Urinary Frequency, No Hematuria, No Urinary Incontinence, No Urgency, No Flank Pain, No Urinary Flow Changes, No Hesitancy Musculoskeletal : joint pain, No Myalgias, Joint Swelling, L ankle pain Skin : No Skin Lesions, No rash Neuro : No Weakness, No Numbness, No Paresthesias, No Loss of Consciousness, No Dizziness, No Headache Psych : No Anxiety/Panic, No Depression, No SI/HI/AH/VH, No Social Issues, Heme/Lymph: No Bruising, No Bleeding,No Lymphadenopathy Endocrine : No Polyuria, No Polydipsia, No Temperature Intolerance Yes all other systems are reviewed and are negative PMFSH Past Medical History Medical History Arthritis Depression Diabetes Elevated cholesterol HTN (hypertension) Hx of transfusion of packed red blood cells Surgical History H/O colonoscopy History of carpal tunnel release History of evacuation of hematoma History of total bilateral knee replacement Social History Social History Alcohol intake: never Advance Directives: No Advance Directives Information Provided: No Physical Exam Vital Signs: Vital Signs: Last Vital Signs Temp 98.0 F 01/05/21 10:49 Pulse 18 L 01/05/21 12:02 Resp 18 01/05/21 10:49 BP 139/76 01/05/21 10:49 Pulse Ox 98 01/05/21 10:49 Body Mass Index 32.9 Const: General: healthy appearing, no acute distress and well developed Nutritional Appearance: well nourished Orientation/consciousness: patient oriented x3 Neck: Neck: Yes normal visual inspection, Yes full ROM and Yes trachea midline Thyroid: Thyroid normal Resp: Auscultation: clear to auscultation bilaterally Cardio: Rate: regular rate Rhythm: regular rhythm GI: Inspection: Yes normal to inspection and No distended Palpation (GI): No hepatosplenomegaly present Auscultation: normal bowel sounds Skin: General skin exam: elasticity normal, turgor normal and dry skin Neuro: General: patient oriented x3 Extrem: Right upper extremity: normal to inspection and full ROM Left upper extremity: normal to inspection and full ROM Right lower extremity: normal to inspection, full ROM and normal capillary refill Left lower extremity: full ROM, normal capillary refill, edema (Redness to left inner ankle) and ankle (Redness) Details: tenderness, swelling and pitting edema Course Course Course Narrative: 75-year-old female is here today with pain to her left inner ankle. Patient denies any injury or any insect bite. After in the inspection her left ankle is warm to touch and red. I will order x-ray and medicate her with ibuprofen. ? Cellulitis possibly from an insect bite. If x-ray is normal will send her home with ibuprofen, Keflex and prednisone. Reevaluation(s) Reevaluation #1: Left foot and ankle x-ray shows no acute processes except for mild soft tissue swelling over that ankle area. I will send patient home with Keflex and prednisone for 5 days. She may take ibuprofen for pain. Area marked with surgical pen. Patient was instructed to come back if that area will get larger or if she will get worsening symptoms. Medical Decision Making Imaging Data Left foot and ankle x-ray: Radiologist's impression: FINDINGS: There is soft tissue swelling overlying both malleoli, greater medial side. The malleoli appear intact and the ankle mortise is symmetric. There is no ankle fracture or dislocation or visible ankle capsular effusion. The talar dome shows no osteochondral lesion. The subtalar joint is unremarkable. There are bulky large posterior and moderate bulky plantar calcaneal spurs similar to prior exam 2013. Again, there is scattered linear mineralization within the proximal to mid plantar fascia. No erosive change. Mild dorsal spurring distal talus again seen. The midfoot and forefoot show no fracture or dislocation or focal arthropathy.? Discharge Plan Discharge Clinical Impression: Ankle joint pain Qualifiers: Laterality: left Qualified Code(s): M25.572 - Pain in left ankle and joints of left foot Cellulitis Qualifiers: Site of cellulitis: extremity Site of cellulitis of extremity: lower extremity Laterality: left Qualified Code(s): L03.116 - Cellulitis of left lower limb Patient Disposition: Home, Self-Care Instructions: Cellulitis (ED), Swollen Joint (ED) Additional Instructions: Lo vieron aqu? hoy por hinchaz?n, enrojecimiento y dolor en el tobillo joel. Patel radiograf?a fue negativa para detectar fracturas. Tiene renate infecci?n leve de la piel que necesitar? cici prednisona y antibi?ticos janee los pr?ximos 5 d?as. Termine todos los antibi?ticos para que la infecci?n desaparezca. Julia un seguimiento con patel m?dico de atenci?n primaria en 2-3 d?as. Puede regresar al departamento de emergencias si ethan s?ntomas empeoran o si experimenta alg?n s?ntoma preocupante adicional. Prescriptions: New cephalexin 500 mg capsule 500 mg PO QID 5 Days Qty: 20 RF: 0 prednisone 20 mg tablet 40 mg PO DAILY Qty: 10 RF: 0 No Action atorvastatin 80 mg tablet 80 mg PO BEDTIME RF: 0 venlafaxine 75 mg capsule,extended release 24hr 75 mg PO QAM RF: 0 amlodipine 2.5 mg tablet 2.5 mg PO DAILY RF: 0 acetaminophen 500 mg tablet 1 - 2 tab PO TID PRN (Reason: Pain) RF: 0 docusate sodium [DOK] 100 mg capsule 100 mg PO BID RF: 0 hydrochlorothiazide 25 mg tablet 25 mg PO DAILY RF: 0 metformin 500 mg tablet extended release 24 hr 500 mg PO DAILY RF: 0 Cerovite Senior Tablet 1 tab PO DAILY RF: 0 ibuprofen 600 mg tablet 600 mg PO TID PRN (Reason: pain) Qty: 30 RF: 0
[2021-01-05] MEDS: Ibuprofen 600 MG TABLET PO (11:08)
[2021-01-05] MEDS: cephALEXin 500 MG CAPSULE PO (11:39)
[2021-01-05] MEDS: predniSONE 20 MG TABLET 40 MG PO (11:39)
[2021-01-05 12:02] VITALS: PULSE 18
== END 2021-01-05 12:50 | disposition home or self-care (01) ==
PROVIDERS: Emergency Provider Emergency Medicine
DX: M25.572 Pain in left ankle and joints of left foot (principal); L03.116 Cellulitis of left lower limb; E11.9 Type 2 diabetes mellitus without complications; I10 Essential (primary) hypertension; Z79.899 Other long term (current) drug therapy
CPT/HCPCS: 73600; 73620; 99283

== ENCOUNTER 2021-09-11 18:29 | Emergency (ER) | payer OTHER, SELFPAY ==
--- NOTE | ~2021-09-11 | US_ITS ---
EXAMINATION: US ABDOMEN LIMITED CLINICAL INFORMATION: Right upper quadrant pain. COMPARISON: 12/04/2016 TECHNIQUE: Real-time imaging of the right upper quadrant abdominal viscera. FINDINGS: PANCREAS: The visualized proximal portion of the pancreas is unremarkable. The distal portion is obscured secondary to overlying bowel gas. LIVER: The liver is normal in size. The liver contour is normal. Parenchymal echogenicity is normal. No focal hepatic lesion. There is no intrahepatic biliary duct dilatation seen. GALLBLADDER: The gallbladder is physiologically distended without evidence of stones, sludge, polyps, wall thickening or pericholecystic fluid. Sonographic De Leon sign is reportedly negative. COMMON BILE DUCT: Normal in caliber measuring 0.5 cm in diameter. RIGHT KIDNEY: No hydronephrosis. No renal calculi or focal parenchymal lesions. The kidney measures 9.5 cm in maximum dimension. FREE FLUID: None. US/US abdomen limited IMPRESSION: No abnormality demonstrated.
[2021-09-11 21:04] VITALS: BP 160/91; PULSE 112; RESP 16; TEMP 36.9; O2SAT 97; BMI 34.0
[2021-09-11 22:44] VITALS: BP 147/69; PULSE 99; RESP 16; TEMP 36.4; O2SAT 96
--- NOTE | 2021-09-11 22:50 | PC.NURSE ---
patient unable to ambulate from waiting room . wheeled in by wheel chair . Hunched over .c/o 02/19 back pain left flank side that started Saturday morning when she woke up .
[2021-09-11] MEDS: Ibuprofen 400 MG TABLET PO (23:09)
[2021-09-11] MEDS: Acetaminophen 325 MG TABLET 975 MG PO (23:10)
[2021-09-11 23:28] LABS: MANUAL DIFF FLAG NO
[2021-09-11 23:29] LABS: Basophils Percent Auto 0.2 % (0-2); Eosinophils Percent Auto 0.4 % (0-4); Hematocrit 40.4 % (37.0-47.0); Hemoglobin 13.2 g/dl (12.0-16.0); Imm Gran Abs Auto 0.03 X10*3/uL (0.00-0.03); Imm Gran Pct Auto 0.3 % (0.0-0.4); Lymphocytes Absolute Auto 1.9 X10*3/uL (1.2-4.9); Lymphocytes Percent Auto 19.2 % (20-40); Mean Corpuscular HGB Conc 32.7 g/dl (31.0-35.0); Mean Corpuscular Hemoglobin 29.7 pg (27.0-33.0); Mean Platelet Volume 11.3 fL (9.4-12.3); Monocytes Absolute Auto 0.7 X10*3/uL (0.1-1.2); Monocytes Percent Auto 7.6 % (2-11); Neutrophils Percent Auto 72.3 % (45-73); Platelet Count 253 X10*3/uL (160-400); Red Blood Count 4.44 X10*6/uL (4.20-5.50); Red Cell Distribution Width 12.6 % (11.0-16.0); White Blood Count 9.7 X10*3/uL (4.8-10.8)
--- NOTE | 2021-09-11 23:30 | ED.ABDPAIN ---
HPI - Abdominal Pain General Chief Complaint: Back Pain/Injury Stated Complaint: lower back pain Time Seen by Provider: 09/11/21 22:46 Source: patient Mode of arrival: ambulatory History of Present Illness HPI narrative: This is a 76-year-old female with history of diabetes and presents with onset of right upper quadrant/right posterior back pain that began Saturday evening and has been associated with some mild nausea but denies any vomiting, fever, chills, diarrhea, urinary symptoms. Patient describes the pain is constant and denies any associated new cough, falls, use of alcohol. Related Data Home Medications Medication Instructions Recorded Confirmed acetaminophen 500 mg tablet 1 - 2 tab PO TID PRN 09/06/20 09/07/20 amlodipine 2.5 mg tablet 2.5 mg PO DAILY 09/06/20 09/12/20 atorvastatin 80 mg tablet 80 mg PO BEDTIME 09/06/20 09/07/20 docusate sodium 100 mg capsule 100 mg PO BID 09/06/20 09/07/20 (DOK) hydrochlorothiazide 25 mg tablet 25 mg PO DAILY 09/06/20 09/07/20 metformin 500 mg tablet,extended 500 mg PO DAILY 09/06/20 09/07/20 release 24 hr [id number] 1 tab PO DAILY 09/06/20 09/07/20 tablet (Cerovite Senior) venlafaxine 75 mg capsule,extended 75 mg PO QAM 09/06/20 09/12/20 release 24 hr Previous Rx's Medication Instructions Recorded ibuprofen 600 mg tablet 600 mg PO TID PRN #30 tab 11/12/20 cephalexin 500 mg capsule 500 mg PO QID 5 Days #20 cap 01/05/21 prednisone 20 mg tablet 40 mg PO DAILY #10 tab 01/05/21 cefixime 400 mg capsule 400 mg PO DAILY 7 Days #7 cap 09/12/21 Allergies Allergy/AdvReac Type Severity Reaction Status Date / Time codeine [Codeine] Allergy Mild RASH Verified 01/05/21 10:52 meperidine [From Demerol] Allergy Mild RASH Verified 01/05/21 10:52 Review of Systems Review of Systems Pertinent positives and negatives as stated in HPI 10 point review of systems is otherwise negative. PMFSH Past Medical History Source: nursing notes reviewed Medical History Arthritis Depression Diabetes Elevated cholesterol HTN (hypertension) Hx of transfusion of packed red blood cells Surgical History H/O colonoscopy History of carpal tunnel release History of evacuation of hematoma History of total bilateral knee replacement Social History Social History Alcohol intake: never Advance Directives: Yes Advance Directives Information Provided: No Advance Directives on File: No Physical Exam ED Vital Signs: Vital Signs - 24 hr 09/11/21 21:04 09/11/21 22:44 Temperature 98.5 F 97.6 F Pulse Rate 112 H 99 Respiratory Rate 16 16 Blood Pressure 160/91 H 147/69 H Pulse Oximetry 97 96 BMI result Body Mass Index 34.0 VITAL SIGNS: Reviewed. GENERAL: Well developed, well nourished, in no acute distress. HEAD: Normocephalic/atraumatic EYES: PERRLA, EOMI EARS: Ext canals without abnormality OROPHARYNX: no oral lesions noted, posterior pharynx clear LUNGS: Normal breath sounds. No adventitious sounds or accessory muscle use. SpO2<97> CARDIOVASCULAR: Regular rate and rhythm without noted murmurs ABDOMEN: Soft, right upper quadrant/epigastric pain on palpation, De Leon's is positive, no CVA tenderness, non-distended with bowel sounds. MUSCULOSKELETAL: No tenderness, deformities, or effusions noted on gross inspection. EXTREMITIES: No cyanosis, clubbing or edema. SKIN: Inspection of the skin reveals no rashes NEUROLOGIC: Alert and oriented x 4. Strength and sensation to light touch were grossly intact x 4. Course Course Course Narrative: 76-year-old female with history and clinical presentation suggestive of possible gallbladder etiology, otherwise doubt rib fracture, pneumonia, pyelonephritis or renal colic. Review of all investigations negative for acute findings other than UTI, and given patient's symptoms suspect possibility of mild pyelonephritis. Patient received Rocephin here in the emergency room and then discharged home in stable condition. MDM - Abdominal Pain Lab Data Result diagrams: 09/11/21 23:20 09/11/21 23:20 Labs: Lab Results 09/11/21 09/11/21 09/12/21 Range/Units 23:20 23:20 00:29 WBC 9.7 (4.8-10.8) X10*3/uL RBC 4.44 (4.20-5.50) X10*6/uL Hgb 13.2 (12.0-16.0) g/dl Hct 40.4 (37.0-47.0) % MCV 91.0 (80.0-98.0) fL MCH 29.7 (27.0-33.0) pg MCHC 32.7 (31.0-35.0) g/dl RDW 12.6 (11.0-16.0) % Plt Count 253 (160-400) X10*3/uL MPV 11.3 (9.4-12.3) fL Immature Gran % (Auto) 0.3 (0.0-0.4) % Neut % (Auto) 72.3 (45-73) % Lymph % (Auto) 19.2 L (20-40) % [place] % (Auto) 7.6 (2-11) % Eos % (Auto) 0.4 (0-4) % Baso % (Auto) 0.2 (0-2) % Lymph # (Auto) 1.9 (1.2-4.9) X10*3/uL [place] # (Auto) 0.7 (0.1-1.2) X10*3/uL Eos # (Auto) 0.0 (0.0-0.4) X10*3/uL Baso # (Auto) 0.0 (0.0-0.2) X10*3/uL Abs Immat Gran (auto) 0.03 (0.00-0.03) X10*3/uL Absolute Neuts (auto) 7.0 (2.0-8.3) x10*3/uL Absolute Nucleated RBC 0.000 (0.0-0.012) X10*3/uL Nucleated RBC % (auto) 0.0 (0.0-0.2) /100WBC Sodium 138 (135-145) mmol/L Potassium 3.8 (3.3-5.1) mmol/L Chloride 98 (96-108) mmol/L Carbon Dioxide 29 (22-29) mmol/L Anion Gap 15 (12-20) BUN 15 (9-16) mg/dL Creatinine 0.73 (0.5-1.4) mg/dL Estim Creat Clear Calc 65.5 Estimated GFR > 60 Random Glucose 136 H (60-115) mg/dL Calcium 9.8 (8.4-10.2) mg/dL Total Bilirubin 1.5 H (0.0-1.0) mg/dL AST 13 (5-31) U/L ALT 10 (0-31) U/L Alkaline Phosphatase 89 (39-117) U/L Total Protein 8.1 H (6.5-8.0) g/dL Albumin 4.3 (3.5-5.0) g/dL Urine Color DK YELLOW Urine Appearance HAZY Urine pH 6.5 (5.0-8.0) Ur Specific [place] 1.025 (1.005-1.025) Urine Protein 1+ H (NEG-TRACE) MG/DL Urine Glucose (UA) NEG (NEG) MG/DL Urine Ketones 15 (NEG) MG/DL Urine Blood TRACE (NEG) Urine Nitrite NEG (NEG) Ur Leukocyte Esterase 2+ H (NEG) Discharge Plan Discharge Clinical Impression: Pyelonephritis Patient Disposition: Home, Self-Care Instructions: Kidney Infection (ED) Additional Instructions: 1. Reanudar todos los medicamentos caseros seg?n lo prescrito. 2. Complete todo el ciclo de antibi?ticos que le hayan recetado. 3. Recomendar Tylenol/ibuprofeno de venta amy seg?n sea necesario para controlar el dolor. 4. Aumentar la hidrataci?n fluida, especialmente con agua. 5. Julia un seguimiento con el proveedor de atenci?n primaria en los pr?ximos 1 a 2 d?as para renate reevaluaci?n. Regrese a la raul de emergencias si los s?ntomas empeoran. Prescriptions: New cefixime 400 mg capsule 400 mg PO DAILY 7 Days Qty: 7 0RF No Action atorvastatin 80 mg tablet 80 mg PO BEDTIME 0RF venlafaxine 75 mg capsule,extended release 24hr 75 mg PO QAM 0RF amlodipine 2.5 mg tablet 2.5 mg PO DAILY 0RF acetaminophen 500 mg tablet 1 - 2 tab PO TID PRN (Reason: Pain) 0RF docusate sodium [DOK] 100 mg capsule 100 mg PO BID 0RF hydrochlorothiazide 25 mg tablet 25 mg PO DAILY 0RF metformin 500 mg tablet extended release 24 hr 500 mg PO DAILY 0RF Cerovite Senior Tablet 1 tab PO DAILY 0RF cephalexin 500 mg capsule 500 mg PO QID 5 Days Qty: 20 0RF prednisone 20 mg tablet 40 mg PO DAILY Qty: 10 0RF ibuprofen 600 mg tablet 600 mg PO TID PRN (Reason: pain) Qty: 30 0RF Print Language: Cymro
[2021-09-12 00:06] LABS: Alanine Aminotransferase 10 U/L (0-31); Albumin Level 4.3 g/dL (3.5-5.0); Alkaline Phosphatase 89 U/L (39-117); Anion Gap 15 (12-20); Aspartate Amino Transferase 13 U/L (5-31); Bilirubin Total 1.5 mg/dL (0.0-1.0); Blood Urea Nitrogen 15 mg/dL (9-16); Calcium 9.8 mg/dL (8.4-10.2); Carbon Dioxide 29 mmol/L (22-29); Chloride 98 mmol/L (96-108); Creatinine Clr Calc Pharmacy 65.5; Estimated Glomerular Filt Rate > 60; Glucose Random 136 mg/dL (60-115); Potassium 3.8 mmol/L (3.3-5.1); Sodium 138 mmol/L (135-145); Total Protein 8.1 g/dL (6.5-8.0)
[2021-09-12 00:36] LABS: Appearance Urine HAZY; Color Urine DK YELLOW; Glucose Urine UA NEG (NEG); Leukocyte Esterase Urine 2+ (NEG); Nitrite Urine NEG (NEG); PH 6.5 (5.0-8.0); Specific Gravity - Urine 1.025 (1.005-1.025); UACC Culture Trigger YES; Urine Blood TRACE (NEG); Urine Ketones 15 MG/DL (NEG); Urine Protein 1+ MG/DL (NEG-TRACE)
[2021-09-12] MEDS: cefTRIAXone sodium 1 GM in 0.9 % Sodium Chloride 50 ML IV (01:10)
[2021-09-12 01:19] LABS: Bacteria Urine TRACE /LPF; Mucus Urine 1+ /LPF; Squamous Epithelial Cell Urine 2+ /LPF; WBC Urine 50-75 /HPF (0-4)
== END 2021-09-12 01:43 | disposition home or self-care (01) ==
PROVIDERS: Emergency Provider Student in an Organized Health Care Education/Training Program
DX: N12 Tubulo-interstitial nephritis, not specified as acute or chronic (principal); R10.11 Right upper quadrant pain; M54.50 Low back pain, unspecified; Z79.899 Other long term (current) drug therapy
CPT/HCPCS: 36415; 76705; 80053; 81001; 85025; 87086; 96365; 99284; J0696

== ENCOUNTER 2021-11-27 08:17 | Outpatient (REF) | payer OTHER, SELFPAY ==
--- NOTE | ~2021-11-27 | MM_ITS ---
EXAMINATION: MM SCREENING DIGITAL BREAST TOMOSYNTHESIS, BILATERAL CLINICAL INFORMATION: Screening. Asymptomatic. The lifetime risk of breast cancer based on the Tyrer-Cuzick Model is 3%. COMPARISON: Mammography: 11/23/2020, 03/19/2019, 12/16/2017 TECHNIQUE: Digital breast tomosynthesis is performed in both the craniocaudal and mediolateral oblique views along with computer-aided detection (CAD). Synthesized 2D images are generated from the tomosynthesis. Additional left CC view is provided. FINDINGS: There are scattered areas of fibroglandular density (ACR BI-RADS breast composition Category b). There are no significant masses, abnormal calcifications, or other abnormalities. Parenchymal pattern is similar to prior exams. No developing density. No significant changes. MM/MM tomosynthesis screening BI IMPRESSION: No mammographic evidence of malignancy. ASSESSMENT: BI-RADS 1: Negative RECOMMENDATION: Routine annual mammography screening. This patient's information was entered into a reminder system with a target due date for their next mammogram.
== END 2021-11-27 08:18 | disposition home or self-care (01) ==
LOC: HO.MAMMO 08:17
PROVIDERS: Visit Provider Nurse Practitioner
DX: Z12.31 Encounter for screening mammogram for malignant neoplasm of breast (principal)
CPT/HCPCS: 77063; 77067

== ENCOUNTER 2021-12-26 13:47 | Emergency (ER) | payer OTHER, SELFPAY | END 2021-12-26 17:21 | disposition left against medical advice (07) | PROVIDERS: Emergency Provider Emergency Medicine | DX: K08.89 Other specified disorders of teeth and supporting structures (principal) ==

== ENCOUNTER 2022-06-18 15:29 | Outpatient (REF) | payer OTHER, SELFPAY ==
--- NOTE | ~2022-06-18 | XR_ITS ---
EXAMINATION: XR BILATERAL HIPS WITH AP PELVIS CLINICAL INFORMATION: Bilateral hip pain COMPARISON: None TECHNIQUE: 2 views of each hip FINDINGS: There is no fracture or dislocation. The hips are well aligned. Narrowing of the joint spaces with mild subchondral sclerosis and small osteophytes. The visualized pelvis is intact. There is sclerosis and irregularity along the pubic symphysis suggestive of osteitis pubis. Normal bowel gas pattern. Diffuse vascular calcifications. 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
== END 2022-06-18 15:30 | disposition home or self-care (01) ==
LOC: HO.XRAY 15:29
PROVIDERS: PCP General Practice; Visit Provider General Practice
DX: M25.552 Pain in left hip (principal); M25.551 Pain in right hip
CPT/HCPCS: 73522

== ENCOUNTER 2022-12-20 08:31 | Outpatient (REF) | payer OTHER, SELFPAY | END 2022-12-20 08:32 | disposition home or self-care (01) | LOC: HO.MAMMO 08:31 | PROVIDERS: PCP General Practice; Visit Provider General Practice | DX: Z12.31 Encounter for screening mammogram for malignant neoplasm of breast (principal) | CPT/HCPCS: 77063; 77067 ==

== ENCOUNTER → 2022-12-20 08:45 | Outpatient (BNV) | payer OTHER, SELFPAY | PROVIDERS: PCP General Practice; Visit Provider Radiology Diagnostic Radiology | DX: Z12.31 Encounter for screening mammogram for malignant neoplasm of breast (principal) | CPT/HCPCS: 77063; 77067 ==

== ENCOUNTER 2023-01-02 12:23 | Outpatient (REF) | payer OTHER, SELFPAY ==
--- NOTE | ~2023-01-02 | XR_ITS ---
EXAMINATION: XR HAND, LEFT CLINICAL INFORMATION: Pain and swelling COMPARISON: 08/06/2012 TECHNIQUE: PA, lateral, and oblique views of the left hand. FINDINGS: There is narrowing of radiocarpal joint laterally with significant widening of space between lunate and scaphoid, measured now 1 cm. There is spurring of the distal ulna. There are degenerative changes at the base of the first metacarpal joint with spurring. There are changes of osteoarthritis with subchondral cysts formation in the first carpometacarpal joint. There is. The ventricular osteopenia. Soft tissues are unremarkable. 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 No fracture seen.
--- NOTE | ~2023-01-02 | XR_ITS ---
EXAMINATION: XR HAND, RIGHT CLINICAL INFORMATION: Pain in the right hand COMPARISON: 01/23/2016 TECHNIQUE: PA, lateral, and oblique views of the right hand. FINDINGS: There is periarticular osteopenia and deformity of distal interphalangeal joints more prominent in the coronal second finger. There are changes of osteoarthritis in the first carpometacarpal joint and mild widening of the space between lunate and scaphoid. Soft tissues unremarkable. XR/XR hand RT min 3V IMPRESSION: Changes of osteoarthritis in the distal interphalangeal joints and first carpometacarpal joint. Mild widening of the space between lunate and scaphoid.
== END 2023-01-02 12:24 | disposition home or self-care (01) ==
LOC: HO.HHCX 12:23
PROVIDERS: Visit Provider General Practice
DX: M79.641 Pain in right hand (principal); M79.642 Pain in left hand
CPT/HCPCS: 73130

== ENCOUNTER 2023-01-02 12:36 | Outpatient (REF) | payer OTHER, SELFPAY ==
[2023-01-02 14:25] LABS: Alanine Aminotransferase 12 U/L (0-31); Albumin Level 4.4 g/dL (3.5-5.0); Alkaline Phosphatase 107 U/L (39-117); Anion Gap 14 (12-20); Aspartate Amino Transferase 18 U/L (5-31); Bilirubin Total 0.7 mg/dL (0.0-1.0); Blood Urea Nitrogen 15 mg/dL (9-16); Calcium 10.1 mg/dL (8.4-10.2); Carbon Dioxide 30 mmol/L (22-29); Chloride 102 mmol/L (96-108); Cholesterol 137 mg/dL (<200); Estimated Glomerular Filt Rate > 60; Glucose Random 102 mg/dL (60-115); HDL Cholesterol 44 mg/dL (>40); LDL Cholesterol Calculated 71 mg/dL (<100); Potassium 3.6 mmol/L (3.3-5.1); Sodium 142 mmol/L (135-145); Triglycerides 114 mg/dL (<150)
[2023-01-02 14:37] LABS: Creatinine Urine 145.93 mg/dL; Microalbum/Creatinine Ratio Ur 10.2 ug/mg cr (<30)
== END 2023-01-02 12:37 | disposition home or self-care (01) ==
LOC: HO.HHCL 12:36
PROVIDERS: Visit Provider General Practice
DX: E11.22 Type 2 diabetes mellitus with diabetic chronic kidney disease (principal); N18.9 Chronic kidney disease, unspecified
CPT/HCPCS: 36415; 80053; 80061; 82043

== ENCOUNTER 2023-02-06 08:13 | Outpatient (AMB) | payer OTHER, SELFPAY ==
--- NOTE | 2023-02-06 08:16 | MHC.OFFVIS ---
Intake Intake Visit Reasons: mold closer- pain in both hands Intake Note: Giana is a 77 year old female who presents today as a new patient with complaints of bilateral hand pain. Pateint reports that she has pain in both of the hands that radiates to the fingers and wrists. Denies injury. She cannot do any heavy lifting and feels weakness. No previous therapies tried. Belt Machine Operator Required: Yes Belt Machine Operator Name: [id number] Allergies codeine [Codeine] Allergy (Mild, Verified 02/06/23 08:28) RASH meperidine [From Demerol] Allergy (Mild, Verified 02/06/23 08:28) RASH Medication List - Last Reconciled 02/06/23 by Aleja Solorzano MD amlodipine 2.5 mg PO DAILY atorvastatin 80 mg PO BEDTIME cefixime 400 mg PO DAILY 7 days hydrochlorothiazide 25 mg PO DAILY metformin ER 500 mg PO DAILY [id number] (Cerovite Senior) 1 tab PO DAILY venlafaxine ER 75 mg PO QAM HPI HPI Comments History of Present Illness Details History of diabetes. Carpal tunnel surgery under right side several years ago. Was of her symptoms are worse on the left side. Numbness and pain equally, pointing to the wrist area. Numbness in all the fingers. Also shows me ganglion cyst on the right wrist. Treatment done so far: NSAIDs - tried in the past No wrist brace therapy - none recently [facility] Medical History (Updated 02/06/23 @ 08:57 by Aleja Solorzano MD) Generalized degenerative joint disease of hand Arthritis Hx of transfusion of packed red blood cells Depression Diabetes Elevated cholesterol HTN (hypertension) Surgical History History of evacuation of hematoma History of carpal tunnel release History of total bilateral knee replacement H/O colonoscopy Social History Alcohol intake: never Review of Systems Const All systems reviewed & are unremarkable except as noted in HPI and below Physical Exam Constitutional: Patient appears to be in no acute distress, well nourished and well developed. MSK: Inspection reveals appropriate head and neck positioning. No pain with palpation over the neck musculature. Cervical ROM was full. Spurling's sign negative. Bilateral shoulder ROM WNL. No ligamentous laxity or crepitance. No increased effusion. Hawkin's test is negative. No joint effusion noted. No deformity noted. No intrinsic hand weakness noted. No atrophy noted. Macario test negative. Carpal compression test positive on left wrist. Tinel sign negative. Ganglion cyst on right wrist radial side. Strength is 5/5 in all muscle groups tested. No increased tone noted. Neurological: Neurologic examination of the upper and lower extremities was nonfocal with intact sensation, muscle stretch reflexes and without focal motor deficits . Patrick?s negative bilaterally. Gait is non-antalgic without loss of balance. Results Reviewed Results Reviewed: I independently reviewed the results of the following: Arthritis in bilateral x-ray EXAMINATION: XR HAND, RIGHT CLINICAL INFORMATION: Pain in the right hand COMPARISON: 01/23/2016 TECHNIQUE: PA, lateral, and oblique views of the right hand. FINDINGS: There is periarticular osteopenia and deformity of distal interphalangeal joints more prominent in the coronal second finger. There are changes of osteoarthritis in the first carpometacarpal joint and mild widening of the space between lunate and scaphoid. Soft tissues unremarkable. XR/XR hand RT min 3V IMPRESSION: Changes of osteoarthritis in the distal interphalangeal joints and first carpometacarpal joint. Mild widening of the space between lunate and scaphoid. XR HAND, LEFT CLINICAL INFORMATION: Pain and swelling COMPARISON: 08/06/2012 TECHNIQUE: PA, lateral, and oblique views of the left hand. FINDINGS: There is narrowing of radiocarpal joint laterally with significant widening of space between lunate and scaphoid, measured now 1 cm. There is spurring of the distal ulna. There are degenerative changes at the base of the first metacarpal joint with spurring. There are changes of osteoarthritis with subchondral cysts formation in the first carpometacarpal joint. There is. The ventricular osteopenia. Soft tissues are unremarkable. 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 No fracture seen. I reviewed records from the following: Orthopedic Assessment & Plan Assessment & Plan (1) Generalized degenerative joint disease of hand: Code(s): M15.9 - Polyosteoarthritis, unspecified (2) Carpal tunnel syndrome of left wrist: Code(s): G56.02 - Carpal tunnel syndrome, left upper limb (3) Ganglion cyst: Code(s): M67.40 - Ganglion, unspecified site Plan Suspect Carpal Tunnel Syndrome on left side, in a background of hand arthritis and diabetes. We will schedule for EMG. Will fit her with a wrist brace to wear at night. Right wrist ganglion cyst, not painful. Will continue to observe this. If getting bigger or causing severe pain, we can consider excision surgery. Assessment and plan discussed with patient, and patient was agreeable. All questions were answered thoroughly. Aleja Solorzano MD, RAOUL Board Certified, [place] Board [employer] Medicine and Rehabilitation (ABPMR) Board Certified, [place] Board of Electrodiagnostic Medicine (ABEM) Orders: Orders NE electromyogram (EMG) Today G56.02 - Carpal tunnel syndrome, left upper limb NE nerve conduction velocity Today G56.02 - Carpal tunnel syndrome, left upper limb Coding Level of Care Code New Pt Level 4 (15314) Diagnoses Generalized degenerative joint disease of hand M15.9 Carpal tunnel syndrome of left wrist G56.02 Ganglion cyst M67.40
== END 2023-02-06 09:08 | disposition home or self-care (01) ==
PROVIDERS: PCP General Practice; Visit Provider Physical Medicine & Rehabilitation
DX: M15.9 Polyosteoarthritis, unspecified (principal); G56.02 Carpal tunnel syndrome, left upper limb; M67.40 Ganglion, unspecified site
CPT/HCPCS: 99204

== ENCOUNTER → 2023-02-06 08:13 | Outpatient (BNVA) | payer OTHER, SELFPAY | PROVIDERS: PCP General Practice; Visit Provider Physical Medicine & Rehabilitation ==

== ENCOUNTER 2023-02-28 12:31 | Outpatient (REF) | payer OTHER, SELFPAY ==
--- NOTE | 2023-02-28 12:34 | EMG_ITS ---
Chief complaint: Left hand pain and numbness Reason for referral: Evaluate for Carpal Tunnel Syndrome Procedure done: Left upper extremity EMG/NCS Precautions and/or limitations: None The limb temperature was monitored continuously and remained between 32-36 degrees C during the performance of the NCS. FINDINGS: Left median motor nerve showed prolonged distal latency, small amplitude and normal conduction velocity. Left ulnar motor nerve showed normal distal latency, small amplitude and normal conduction velocity. Left median sensory nerve showed prolonged peak latency and small amplitude. Left ulnar sensory nerve showed normal peak latency but small amplitude. All other nerves tested were within normal. Concentric needle EMG was performed in selected muscles of the left upper extremity and cervical paraspinal. Study revealed Signs of electric abnormalities as shown in the table below. Left FDI showed increased insertional activity, PSWs and fibrillations. Nerve Conduction Studies Anti Sensory Summary Table ?Stim Site NR Onset (ms) Norm Onset (ms) Peak (ms) Norm Peak (ms) O-P Amp (?V) Norm O-P Amp Site1 Site2 Delta-0 (ms) Dist (cm) Forrest (m/s) Norm Forrest (m/s) Left Median Anti Sensory (2nd Digit) Wrist ? 4.3 4.8 <3.6 8.1 >10 Wrist 2nd Digit 4.3 14.0 33 Left Radial Anti Sensory (Thumb) Forearm ? 1.8 2.3 <3.1 21.5 Forearm Thumb 1.8 0.0 Left Ulnar Anti Sensory (5th Digit) Wrist ? 2.9 3.6 <3.7 13.0 >15.0 Wrist 5th Digit 2.9 14.0 48 Motor Summary Table ?Stim Site NR Onset (ms) Norm Onset (ms) O-P Amp (mV) Norm O-P Amp iAmp (mV) Amp (1st) (%) Site1 Site2 Delta-0 (ms) Dist (cm) Forrest (m/s) Norm Forrest (m/s) Left Median Motor (Abd Poll Brev) Wrist ? 6.3 <3.9 3.3 >4.5 3.7 100.0 Elbow Wrist 3.2 18.5 58 >45 Elbow ? 9.5 2.3 2.7 69.7 Left Ulnar Motor (Abd Dig Minimi) Wrist ? 3.0 <3.0 4.0 >5 4.4 100.0 B Elbow Wrist 2.8 17.0 61 >45 B Elbow ? 5.8 3.9 4.4 97.5 A Elbow B Elbow 1.4 10.0 71 >45 A Elbow ? 7.2 4.2 5.0 105.0 EMG ?Side Muscle Nerve Root Ins Act Fibs Psw Amp Dur Poly Recrt Int Pat Comment Left 1stDorInt Ulnar C8-T1 Incr 1+ 1+ Nml Nml 0 Nml Complete Left FlexCarRad Median C6-7 Nml Nml Nml Nml Nml 0 Nml Complete Left Biceps Musculocut C5-6 Nml Nml Nml Nml Nml 0 Nml Complete Left Triceps Radial C6-7-8 Nml Nml Nml Nml Nml 0 Nml Complete Left Deltoid Axillary C5-6 Nml Nml Nml Nml Nml 0 Nml Complete IMPRESSION: 1. This is an abnormal study. 2. There is electrodiagnostic evidence for left moderate-severe median neuropathy at the wrist, consistent with carpal tunnel syndrome. 3. 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 4. There is no electrodiagnostic evidence for brachial plexopathy or cervical radiculopathy. CLINICAL COMMENT: Will refer to Dr. Zazueta for possible surgery.. Thank you for your kind referral. Aleja Solorzano MD, RAOUL Board Certified, [place] [employer] and Rehabilitation (ABPMR) Board Certified, [place] Board of Electrodiagnostic Medicine (ABEM) CODIN [id number] MTDD
== END 2023-02-28 12:32 | disposition home or self-care (01) ==
LOC: HO.NEURO 12:31
PROVIDERS: PCP General Practice; Visit Provider Physical Medicine & Rehabilitation
DX: G56.02 Carpal tunnel syndrome, left upper limb (principal)
CPT/HCPCS: 95886; 95909

== ENCOUNTER → 2023-02-28 12:34 | Outpatient (BNV) | payer OTHER, SELFPAY | PROVIDERS: PCP General Practice; Visit Provider Physical Medicine & Rehabilitation | DX: G56.12 Other lesions of median nerve, left upper limb (principal); G56.02 Carpal tunnel syndrome, left upper limb; G56.22 Lesion of ulnar nerve, left upper limb | CPT/HCPCS: 95886; 95909 ==

== ENCOUNTER 2023-03-13 09:36 | Outpatient (AMB) | payer OTHER, SELFPAY ==
--- NOTE | 2023-03-13 09:46 | A.OFFVIS_ITS ---
Intake Intake Visit Reasons: OV- EMG review Bilateral Intake Note: Giana a 77 year old female presents today for an EMG review of bilateral hand. Patient reports no change in her symptoms, she continues to have pain and weakness in her hands. Allergies codeine [Codeine] Allergy (Mild, Verified 03/13/23 09:47) RASH meperidine [From Demerol] Allergy (Mild, Verified 03/13/23 09:47) RASH HPI OV- EMG review Bilateral HPI Details 77-year-old female [facility] review he left upper extremity. She states the left hand numbness is constant and he continues to have pain and difficulty with grasping objects. She has a history of diabetes. Her sugar level is well controlled. [facility] Medical History (Updated 03/13/23 @ 09:54 by Romeo Davidson PA-C) Generalized degenerative joint disease of hand Arthritis Hx of transfusion of packed red blood cells Depression Diabetes Elevated cholesterol HTN (hypertension) Surgical History History of evacuation of hematoma History of carpal tunnel release History of total bilateral knee replacement H/O colonoscopy Social History Alcohol intake: never Review of Systems Const All systems reviewed & are unremarkable except as noted in HPI and below Physical Exam Extrem Other: Left wrist: Normal to inspection. Tenderness over the carpal canal. Numbness and tingling over the median nerve distribution of the right hand and also along the small finger and ulnar side of the palm. Able to make a full fist and fully extend all fingers. Positive Tinel's across the carpal and cubital canal. Results Reviewed Results Reviewed: EMG/NCS 02/28/23 IMPRESSION: 1. This is an abnormal study. 2. There is electrodiagnostic evidence for left moderate-severe median neuropathy at the wrist, consistent with carpal tunnel syndrome. 3. 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 4. There is no electrodiagnostic evidence for brachial plexopathy or cervical radiculopathy. Assessment & Plan Assessment & Plan (1) Carpal tunnel syndrome of left wrist: Code(s): G56.02 - Carpal tunnel syndrome, left upper limb (2) Cubital tunnel syndrome on left: Code(s): G56.22 - Lesion of ulnar nerve, left upper limb Plan We discussed options which include conservative vs operative treatment. Since the patient has been symptomatic for several months and it is impacting their daily life, the decision was made to undergo right carpal tunnel and cubital tunnel release. We discussed risk, benefits and alternatives. Risk including but not limited to infection, weakness, stiffness, ongoing numbness or tingling. The patient does understand all this and would like to proceed with left carpal tunnel and cubital tunnel release with Dr. Zazueta. They will be booked accordingly. Patient Instructions: Scribed for Romeo Davidson PA-C, by Dylan Marley medical office administrator, on 03/13/2023 at 9:45 AM JOSE. Romeo Botello PA-C, have personally reviewed and agree with the information entered by the scribe. Coding Level of Care Code Est Pt Level 3 (33944) Diagnoses Carpal tunnel syndrome of left wrist G56.02 Cubital tunnel syndrome on left G56.22
== END 2023-03-13 10:26 | disposition home or self-care (01) ==
PROVIDERS: PCP General Practice; Visit Provider Physician Assistant
DX: G56.02 Carpal tunnel syndrome, left upper limb (principal); G56.22 Lesion of ulnar nerve, left upper limb
CPT/HCPCS: 99214

== ENCOUNTER → 2023-03-13 09:36 | Outpatient (BNVA) | payer OTHER, SELFPAY | PROVIDERS: PCP General Practice; Visit Provider Physician Assistant | DX: G56.02 Carpal tunnel syndrome, left upper limb (principal); G56.22 Lesion of ulnar nerve, left upper limb | CPT/HCPCS: 99212 ==

== ENCOUNTER 2023-05-02 15:25 | Outpatient (REF) | payer OTHER, SELFPAY ==
--- NOTE | ~2023-05-02 | XR_ITS ---
EXAMINATION: XR RIGHT HAND, 3 VIEWS XR RIGHT WRIST, 5 VIEWS CLINICAL INFORMATION: Injury pain along the volar surface of wrist and extensor surface of base of thumb COMPARISON: Right hand radiograph from 01/02/2023 TECHNIQUE: 3 views of the right hand 5 views of the right wrist FINDINGS: No acute visible fracture or dislocation. Multi joint arthritic changes greatest at the first carpometacarpal joint, triscaphe joint, and second distal interphalangeal joint joint spaces and alignment are otherwise maintained. Soft tissues are unremarkable. XR/XR hand RT min 3V IMPRESSION: 1. No acute visible fracture or dislocation. 2. Multi joint arthritic changes greatest at the first carpometacarpal joint, triscaphe joint, and second distal interphalangeal joint.
--- NOTE | ~2023-05-02 | XR_ITS ---
EXAMINATION: XR RIGHT HAND, 3 VIEWS XR RIGHT WRIST, 5 VIEWS CLINICAL INFORMATION: Injury pain along the volar surface of wrist and extensor surface of base of thumb COMPARISON: Right hand radiograph from 01/02/2023 TECHNIQUE: 3 views of the right hand 5 views of the right wrist FINDINGS: No acute visible fracture or dislocation. Multi joint arthritic changes greatest at the first carpometacarpal joint, triscaphe joint, and second distal interphalangeal joint joint spaces and alignment are otherwise maintained. Soft tissues are unremarkable. XR/XR wrist RT min 3V IMPRESSION: 1. No acute visible fracture or dislocation. 2. Multi joint arthritic changes greatest at the first carpometacarpal joint, triscaphe joint, and second distal interphalangeal joint.
== END 2023-05-02 15:26 | disposition home or self-care (01) ==
LOC: HO.HHCX 15:25
PROVIDERS: Visit Provider Emergency Medicine
DX: M79.641 Pain in right hand (principal); M25.531 Pain in right wrist
CPT/HCPCS: 73110; 73130

== ENCOUNTER → 2023-05-21 13:46 | Outpatient (BNVA) | payer OTHER, SELFPAY | PROVIDERS: PCP General Practice; Visit Provider Orthopaedic Surgery ==

== ENCOUNTER 2023-06-19 14:11 | Outpatient (AMB) | payer OTHER, SELFPAY ==
--- NOTE | 2023-06-19 14:26 | A.OFFVIS_ITS ---
Intake Vital Signs 06/19/23 14:31 Height 5 ft 2 in Weight 174 lb BMI 31.8 Handedness Right Intake Visit Reasons: OV - to discuss CTS surgery, ov- eval of RT wrist pain Intake Note: Giana 78 yr old female presents today to sign up for left CTS surgery. Patient reports that her left hand is worse in numbness than her right hand. She states that her numbness is on the left PF, MF, and RF. Patient states that her numbness is off and on for 6 months. Allergies codeine [Codeine] Allergy (Mild, Verified 06/19/23 14:31) RASH meperidine [From Demerol] Allergy (Mild, Verified 06/19/23 14:31) RASH HPI ov- eval of RT wrist pain HPI Details Giana is a 78 year old right hand dominant Diabetic Occitan speaking woman who returns to discuss treatment for her left carpal tunnel syndrome She complains of numbness primarily in the index, middle, and ring fingers of her left hand. Symptoms intermittent, but daily, worse at night. She denies any small finger numbness. She says this numbness has worsened since her last appointment. She complains of numbness in her right hand, but says this is not as bothersome as her left. She says her right wrist pain has improved since her last appointment, and is now only present with heavy lifting activities. She feels she is ready to take care of herself with her right hand after surgery.. [facility] Medical History (Updated 05/21/23 @ 14:22 by Jorge Abarca) Generalized degenerative joint disease of hand Arthritis Hx of transfusion of packed red blood cells Depression Diabetes Elevated cholesterol HTN (hypertension) Surgical History History of evacuation of hematoma History of carpal tunnel release History of total bilateral knee replacement H/O colonoscopy Social History Alcohol intake: never Comment: Tylenol 650 mg PO given Physical Exam Vital Signs: BMI result Body Mass Index 31.8 Extrem Other: Evaluation of Bilateral Upper Extremity: The patient is alert, oriented, and in no acute distress Neuro: Not quite normal sensation in the median nerve distribution & ring finger. Normal sensation to the small finger No intrinsic or thenar wasting. Vascular: Cap refill brisk ROM: On the left side she can make a fist and extend all of her digits without difficulty. No locking or catching Regarding her right hand and wrist: She can make a tight fist and extend all her digits No tenderness about the wrist or hand She feels she can perform most functions with her right hand, including caring for herself. She has some pain when performing heavy activities, but this is tolerable. Nerve Conduction Study: Left side only IMPRESSION: 1. This is an abnormal study. 2. There is electrodiagnostic evidence for left moderate-severe median neuropathy at the wrist, consistent with carpal tunnel syndrome. 3. 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 4. There is no electrodiagnostic evidence for brachial plexopathy or cervical radiculopathy. Aleja Solorzano MD, RAOUL 02/28/23 Radiographs: 3 views of the right hand & wrist from 05/02/23 were reviewed by me today in clinic. They show no fractures or dislocations. She has some basal joint osteoarthritis, CMC joint arthritis, STT joint arthritis. Of interest, she has significant widening of the scapholunate interval that appears chronic, with near complete loss of the radial lunate joint space seen on the views of the hand as opposed to the wrist. Assessment & Plan Assessment & Plan (1) Cubital tunnel syndrome on left: Code(s): G56.22 - Lesion of ulnar nerve, left upper limb (2) Carpal tunnel syndrome of left wrist: Code(s): G56.02 - Carpal tunnel syndrome, left upper limb (3) Right wrist pain: Code(s): M25.531 - Pain in right wrist Plan Assessent & Plan: 1. Left Carpal tunnel syndrome, moderate-severe Symptoms intermittent, but daily, worse at night. Some persistent numbness in the median nerve distribution today in clinic. I educated her about this condition I discussed operative and non-operative treatment options The patient would like to proceed with surgery The risks and benefits of operative treatment were discussed with the patient and the patient wishes to proceed with surgery. These risks include, but are not limited to risk of damage to blood vessels, nerves, tendons, infection, recurrence, incomplete relief of preoperative symptoms, persistent pain, possible need for further surgery and the risks associated with regional blocks and anesthesia. The plan is to take the patient to the operating room sometime in the next few weeks for the following procedures: 1. Left carpal tunnel release, under local All of the preoperative paperwork including the consent was reviewed today. All the patient's questions were answered. The patient understands that they will be contacted by our sports activities foul judge soon to schedule this procedure She denies blood thinners, asthma, heart, lung, kidney issues She is a Diabetic and says this is well controlled. 2. Left Cubital tunnel syndrome Positive on NCS, she believes this is asymptomatic at this time. 3. Right hand & wrist pain & stiffness After a fall, DOI: 05/02/23 Improved since her last appointment Still some pain present with heavy lifting, but she feels able to care for herself and perform daily activities Scribed for Nila Zazueta MD by Jorge Abarca, medical lab technician, on 06/19/23 at 3:15 PM, EST. Coding Level of Care Code Est Pt Level 4 (64859) Diagnoses Cubital tunnel syndrome on left G56.22 Carpal tunnel syndrome of left wrist G56.02 Right wrist pain M25.531
[2023-06-19 14:31] VITALS: BMI 31.8
== END 2023-06-19 15:30 | disposition home or self-care (01) ==
PROVIDERS: PCP General Practice; Visit Provider Orthopaedic Surgery
DX: G56.22 Lesion of ulnar nerve, left upper limb (principal); G56.02 Carpal tunnel syndrome, left upper limb; M25.531 Pain in right wrist
CPT/HCPCS: 99214

== ENCOUNTER → 2023-06-19 14:11 | Outpatient (BNVA) | payer OTHER, SELFPAY | PROVIDERS: PCP General Practice; Visit Provider Orthopaedic Surgery | DX: G56.22 Lesion of ulnar nerve, left upper limb (principal); G56.02 Carpal tunnel syndrome, left upper limb; M25.531 Pain in right wrist | CPT/HCPCS: 99212 ==

== ENCOUNTER 2023-08-28 10:36 | Outpatient (AMB) | payer OTHER, SELFPAY ==
[2023-08-28 10:55] VITALS: BMI 31.8
--- NOTE | 2023-08-28 10:55 | A.OFFVIS_ITS ---
Intake Vital Signs 08/28/23 10:55 Height 5 ft 2 in Weight 174 lb BMI 31.8 Intake Visit Reasons: Pre Op LT CTR, cub vs trans 09/05/23 AR Intake Note: Giana 78 yr old female presents today for her pre-op visit for her left CTR and cubital tunnel release scheduled for 09/05/23. All question have been answer and consent ready for signature. Allergies codeine [Codeine] Allergy (Mild, Verified 08/28/23 11:01) RASH meperidine [From Demerol] Allergy (Mild, Verified 08/28/23 11:01) RASH HPI Pre Op LT CTR, cub vs trans 09/05/23 AR HPI Details Giana is a 78 year old right hand dominant Diabetic Slovenian speaking woman who returns to discuss treatment for her left carpal & cubital tunnel syndrome She complains of numbness primarily in all fingers of her left hand. Symptoms intermittent, but daily, worse at night. She says her small finger numbness has worsened since her last appointment and now occurs ~3x weekly. She is a Diabetic, which she says is well-controlled. She does not know her last HgA1c. [facility] Medical History (Updated 05/21/23 @ 14:22 by Jorge Abarca) Generalized degenerative joint disease of hand Arthritis Hx of transfusion of packed red blood cells Depression Diabetes Elevated cholesterol HTN (hypertension) Surgical History History of evacuation of hematoma History of carpal tunnel release History of total bilateral knee replacement H/O colonoscopy Social History Alcohol intake: never Comment: Tylenol 650 mg PO given Physical Exam Vital Signs: BMI result Body Mass Index 31.8 Extrem Other: Evaluation of Left Upper Extremity: The patient is alert, oriented, and in no acute distress Neuro: Normal sensation to the tips of all digits today in clinic No intrinsic or thenar wasting. Good APB muscle belly firing and good finger cross Vascular: Cap refill brisk ROM: She can make a fist and extend all of her digits No locking or catching Nerve Conduction Study: Left side only IMPRESSION: 1. This is an abnormal study. 2. There is electrodiagnostic evidence for left moderate-severe median neuropathy at the wrist, consistent with carpal tunnel syndrome. 3. 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 4. There is no electrodiagnostic evidence for brachial plexopathy or cervical radiculopathy. Aleja Solorzano MD, RAOUL 02/28/23 Radiographs: 3 views of the right hand & wrist from 05/02/23 were reviewed by me today in clinic. They show no fractures or dislocations. She has some basal joint osteoarthritis, CMC joint arthritis, STT joint arthritis. Of interest, she has significant widening of the scapholunate interval that appears chronic, with near complete loss of the radial lunate joint space seen on the views of the hand as opposed to the wrist. Assessment & Plan Assessment & Plan (1) Cubital tunnel syndrome on left: Code(s): G56.22 - Lesion of ulnar nerve, left upper limb (2) Carpal tunnel syndrome of left wrist: Code(s): G56.02 - Carpal tunnel syndrome, left upper limb (3) Right wrist pain: Code(s): M25.531 - Pain in right wrist Plan Assessent & Plan: 1. Left Carpal tunnel syndrome, moderate-severe Symptoms intermittent, but daily, worse at night. 2. Left Cubital tunnel syndrome Symptoms intermittent throughout the week I educated her about this condition I discussed operative and non-operative treatment options The patient would like to proceed with surgery The risks and benefits of operative treatment were discussed with the patient and the patient wishes to proceed with surgery. These risks include, but are not limited to risk of damage to blood vessels, nerves, tendons, infection, recurrence, incomplete relief of preoperative symptoms, persistent pain, possible need for further surgery and the risks associated with regional blocks and anesthesia. The plan is to take the patient to the operating room sometime on 09/05/23 for the following procedures: 1. Left carpal tunnel release, under general 2. Left cubital tunnel release vs transposition, under general All of the preoperative paperwork including the consent was reviewed today. All the patient's questions were answered. She denies blood thinners, asthma, heart, lung, kidney issues She is a Diabetic, which she says is well-controlled. She does not know her last HgA1c. They will need an updated HgA1c that is <8.1% in order to proceed with surgery, and they expressed understanding 3. Right hand & wrist pain & stiffness After a fall, DOI: 05/02/23 Improved since her last appointment Still some pain present with heavy lifting, but she feels able to care for herself and perform daily activities Scribed for Nila Zazueta MD by Jorge Abarca, biomedical engineering aide, on 06/19/23 at 3:15 PM, EST. Coding Level of Care Code Est Pt Level 4 (64188) Diagnoses Cubital tunnel syndrome on left G56.22 Carpal tunnel syndrome of left wrist G56.02 Right wrist pain M25.531
== END 2023-08-28 11:20 | disposition home or self-care (01) ==
PROVIDERS: PCP General Practice; Visit Provider Orthopaedic Surgery
DX: G56.22 Lesion of ulnar nerve, left upper limb (principal); G56.02 Carpal tunnel syndrome, left upper limb; M25.531 Pain in right wrist
CPT/HCPCS: 99024

== ENCOUNTER → 2023-08-28 10:36 | Outpatient (BNVA) | payer OTHER, SELFPAY | PROVIDERS: PCP General Practice; Visit Provider Orthopaedic Surgery | DX: G56.22 Lesion of ulnar nerve, left upper limb (principal); G56.02 Carpal tunnel syndrome, left upper limb; M25.531 Pain in right wrist | CPT/HCPCS: 99212 ==

== ENCOUNTER 2023-09-05 07:22 | Day surgery (SDC) | payer OTHER, SELFPAY ==
[2023-09-03 07:47] VITALS: BMI 31.8
--- NOTE | 2023-09-03 12:51 | HO.ANESPROP2 ---
Documented by User: Cyndy Larose NP 09/03/23 12:52 HPI - Anesthesia Eval Consult details Narrative: 78yo F for Left Carpal Tunnel Release, Left Cubital Tunnel Release vs Transposition PMFSH Active Problems Active Problems: All Active Problems Right wrist pain (Acute) Cubital tunnel syndrome on left (Acute) Carpal tunnel syndrome of left wrist (Acute) Ganglion cyst (Acute) Generalized degenerative joint disease of hand (Acute) History of total bilateral knee replacement (Acute) Past Medical History Medical History Generalized degenerative joint disease of hand Arthritis Hx of transfusion of packed red blood cells Depression Diabetes Elevated cholesterol HTN (hypertension) Family History Family history of problems with anesthesia: No Surgical History Surgical History Hx of shoulder surgery Hx of varicose vein ligation History of evacuation of hematoma History of carpal tunnel release History of total bilateral knee replacement H/O colonoscopy History of Problems with Anesthesia: No Social History Social History Alcohol intake: never Comment: Tylenol 650 mg PO given Patient Tobacco Use Status: Never used Tobacco Use of substances other than those prescribed or required for medical reasons: No Are you DNR?: No Advance Directives: No Advance Directives Information Provided: Yes Meds Allergies Allergy/AdvReac Type Severity Reaction Status Date / Time codeine [Codeine] Allergy Mild RASH Verified 09/05/23 07:50 meperidine [From Demerol] Allergy Mild RASH Verified 09/05/23 07:50 Home Medications ?Medication ?Instructions ?Recorded ?Confirmed ?Last Taken ?Type amlodipine 2.5 mg tablet 2.5 mg PO DAILY 09/06/20 09/05/23 09/12/20 07:15 History 2.5mg atorvastatin 80 mg tablet 80 mg PO BEDTIME 09/06/20 09/05/23 Unknown History hydrochlorothiazide 25 mg tablet 25 mg PO DAILY 09/06/20 09/05/23 Unknown History metformin 500 mg tablet,extended 500 mg PO DAILY 09/06/20 09/05/23 Unknown History release 24 hr nrutmxervskp-mtxskyiq-sccvgk 1 tab PO DAILY 04/27/21 04/25/24 Unknown History tablet ([employer]) venlafaxine 75 mg capsule,extended 75 mg PO QAM 09/06/20 09/05/23 09/12/20 07:15 History release 24 hr 75 mg Exam Height,Weight and Vital Signs: Height 5 ft 2 in Weight 78.925 kg Assessment and Plan Assessment Anesthesia Assessment: Chart Reviewed Final Anesthetic Review Family History of Problems with Anesthesia: No History of Problems with Anesthesia: No Documented by User: Netta Crocker MD 09/05/23 08:52 PMFSH Past Medical History Medical History Generalized degenerative joint disease of hand Arthritis Hx of transfusion of packed red blood cells Depression Diabetes Elevated cholesterol HTN (hypertension) Surgical History Surgical History Hx of shoulder surgery Hx of varicose vein ligation History of evacuation of hematoma History of carpal tunnel release History of total bilateral knee replacement H/O colonoscopy Social History Social History Alcohol intake: never Comment: Tylenol 650 mg PO given Patient Tobacco Use Status: Never used Tobacco Use of substances other than those prescribed or required for medical reasons: No Are you DNR?: No Advance Directives: No Advance Directives Information Provided: Yes Meds Allergies Allergy/AdvReac Type Severity Reaction Status Date / Time codeine [Codeine] Allergy Mild RASH Verified 09/05/23 07:50 meperidine [From Demerol] Allergy Mild RASH Verified 09/05/23 07:50 Home Medications ?Medication ?Instructions ?Recorded ?Confirmed ?Last Taken ?Type amlodipine 2.5 mg tablet 2.5 mg PO DAILY 09/06/20 09/05/23 09/12/20 07:15 History 2.5mg atorvastatin 80 mg tablet 80 mg PO BEDTIME 09/06/20 09/05/23 Unknown History hydrochlorothiazide 25 mg tablet 25 mg PO DAILY 09/06/20 09/05/23 Unknown History metformin 500 mg tablet,extended 500 mg PO DAILY 09/06/20 09/05/23 Unknown History release 24 hr roggdmzeyxmj-fcnmccmz-chiqbb 1 tab PO DAILY 09/06/20 09/05/23 Unknown History tablet (Cer[employer]ite Senior) venlafaxine 75 mg capsule,extended 75 mg PO QAM 09/06/20 09/05/23 09/12/20 07:15 History release 24 hr 75 mg Exam Airway Mallampati Class: II TM Dist: >3cm Neck ROM: Limited Heart: rrr Lungs: cta Assessment and Plan Assessment Anesthesia Assessment: Anesthesia Plan Discussed Final Anesthetic Review NPO: Yes ASA Class: III Final Preanesthetic Review: No Changes in Pt Med Stat, Meds/Allgs Chart Reviewed, Consent Obtained/Reviewed and Anes Risks/Benef Reviewed Patient Risk: Intermediate Procedure Risk: Low Anesthetic Plan Anesthetic Plan: GA Disposition: Standard PACU
--- NOTE | 2023-09-05 07:39 | W.PM.OPN ---
Operative Note Operative Note Date of Service: 09/05/23 Narrative: Operative Note Narrative: Preop diagnosis: 1. Left Cubital tunnel syndrome 2. Left carpal tunnel syndrome Postop diagnosis: Same Procedure: 1. Left Cubital Tunnel Release 2. Left carpal tunnel release Surgeon: Nila Zazueta MD Anesthesia: General Anesthesia Findings: Thickening and fibrosis about the ulnar nerve at the cubital tunnel Implants: none Tourniquet time: 42 minutes EBL: 5.0 ml Specimen: none Drains: None Complications: None Disposition: Brought to the recovery room in stable condition Plan: Follow-up in 10-14 days for wound check, and suture removal Indications: The patient is 78 years old with left cubital tunnel syndrome and left carpal tunnel syndrome . The risks and benefits of operative treatment, including but not limited to risk of damage to blood vessels, nerves, tendons, infection, recurrence, persistent pain or numbness, incomplete resolution of preoperative symptoms, or need for further surgery were discussed with the patient and they wished to proceed with surgery. Procedure: Once consent was obtained patient was brought back to the operating suite and placed in the operating table in a supine position. Perioperative antibiotics and anesthesia was administered by the anesthesia team. The limb was prepped and draped in a standard surgical fashion, and a sterile tourniquet applied to the proximal aspect of the left upper extremity. The limb was elevated exsanguinated with Esmarch bandage and the tourniquet inflated to 250 mm of mercury for a total tourniquet time of 42 minutes. Once assured that we had a good block, a 2.0 cm longitudinal incision was made centered over the left carpal tunnel. The incision was made through the skin to the subcutaneous tissues using a #15 blade. Dissection was made down to the level of the transverse carpal ligament with care being taken to protect the palmar cutaneous nerve. Once the transverse carpal ligament was clearly visualized, a longitudinal incision was made in the transverse carpal ligament 1st using a #15 blade, then using tenotomy scissors under direct visualization. Care was taken to look for and protect the motor branch of the median nerve when seen in this area. Once satisfied with our carpal tunnel release the wound was irrigated with normal saline. A 6 cm gently curved but longitudinally oriented incision was made centered over the cubital tunnel of the left upper extremity. Incision was made through the skin to the subcutaneous tissues using a # 15 Blade. I then dissected down to the level of the medial epicondyle and the cubital tunnel using tenotomy scissors. Care was taken to protect the lateral antebrachial cutaneous nerve. The ulnar nerve was identified just posterior to the medial intermuscular septum. The ulnar nerve was released in a proximal to distal direction using tenotomy in iris scissors while directly visualizing and protecting the ulnar nerve. Thickening and fibrosis was appreciated about the ulnar nerve as it passed through the cubital tunnel. The ulnar nerve was assessed as I passed the elbow through full flexion and extension and was found to remain stable within its groove. At this point the tourniquet was deflated and hemostasis obtained with a brief period of local pressure and bipolar electrocautery. The wound was copiously irrigated with normal saline. The subcutaneous layer was closed with 4-0 Vicryl suture, and the skin edges were reapproximated with 5-0 nylon suture. The wound was infiltrated with some 1% lidocaine with epinephrine for postop pain control and sterile dressings were applied. The patient appears to have tolerated the procedure well and with no complications. All digits were well vascularized conclusion of the case.
[2023-09-05 07:53] VITALS: BMI 34.0
[2023-09-05 08:09] LABS: Glucose, Whole Blood 116 mg/dL (60-115)
[2023-09-05 08:12] VITALS: BP 141/74; PULSE 83; RESP 15; TEMP 36.6; O2SAT 95
[2023-09-05] MEDS: Lactated Ringers 1,000 ML 100 ML IVCONT (08:14)
--- NOTE | 2023-09-05 09:24 | MHC.SHP ---
Pre-Procedural Eval Section A - 24 Hr Update-Section A only Date of Service: 09/05/23 The patient is an INPATIENT: No Changes since office visit: No Cold of Flu in the past 2 weeks, No New Medical Problems, No Changes in Medication and No Patient answered all questions The patient has been examined within 24 hours of the surgical procedure. The History & Physical has been completed within 30 days and I have reviewed it.: Yes Section B - Complete if H&P > 30 days Chief Complaint: Carpal tunnel syndrome, left upper limb and cubita Allergies: Allergies Allergy/AdvReac Type Severity Reaction Status Date / Time codeine [Codeine] Allergy Mild RASH Verified 09/05/23 07:50 meperidine [From Demerol] Allergy Mild RASH Verified 09/05/23 07:50 Exam Exam Comment: Left carpal tunnel syndrome and cubital tunnel syndrome for left carpal tunnel release and cubital tunnel release Plan Diagnosis/Plan: Unchanged I have reviewed the history and physical and performed a pertinent physical examination on my patient. No changes have occurred unless specified. Time Spent With Patient Time: Total time managing care of this patient today ____ minutes.
[2023-09-05 11:17] VITALS: BP 120/52; PULSE 92; RESP 16; TEMP 36.6; O2SAT 96
[2023-09-05 11:20] VITALS: BP 115/52; PULSE 89; RESP 16; O2SAT 95
[2023-09-05 11:25] VITALS: BP 101/55; PULSE 92; RESP 16; O2SAT 96
[2023-09-05 11:30] VITALS: BP 103/56; PULSE 93; RESP 16; O2SAT 94
[2023-09-05 11:45] VITALS: BP 108/51; PULSE 96; RESP 16; TEMP 36.4; O2SAT 97
== END 2023-09-05 12:17 | disposition home or self-care (01) ==
PROVIDERS: PCP General Practice; Visit Provider Orthopaedic Surgery
PROC: (CPT 64721; principal; 2023-09-05 09:00)
PROC: (CPT 64718; 2023-09-05 09:00)
DX: G56.02 Carpal tunnel syndrome, left upper limb (principal); G56.22 Lesion of ulnar nerve, left upper limb; R20.0 Anesthesia of skin; I10 Essential (primary) hypertension; E78.00 Pure hypercholesterolemia, unspecified; E11.9 Type 2 diabetes mellitus without complications; Z79.84 Long term (current) use of oral hypoglycemic drugs; Z79.899 Other long term (current) drug therapy; Z88.5 Allergy status to narcotic agent; Z98.890 Other specified postprocedural states; Z66 Do not resuscitate
CPT/HCPCS: 64721; 64718; 82947; J0131; J0690; J2704; J2795; J3010

== ENCOUNTER → 2023-09-05 07:22 | Outpatient (BNV) | payer OTHER, SELFPAY | PROVIDERS: PCP General Practice; Visit Provider Orthopaedic Surgery | DX: G56.02 Carpal tunnel syndrome, left upper limb (principal); G56.22 Lesion of ulnar nerve, left upper limb | CPT/HCPCS: 64718; 64721 ==

== ENCOUNTER 2023-09-18 11:38 | Outpatient (AMB) | payer OTHER, SELFPAY ==
--- NOTE | 2023-09-18 11:43 | A.OFFVIS_ITS ---
Intake Visit Reasons: PO LT CTR, cub vs trans 09/05/23 AR Intake Note: Giana 78 yr old female presents today for her PO visit for her left CTR and Cubital release from DOS 09/05/23 AR. States symptoms have improved and is doing well. Sutures removed and steri strips applied in office. Allergies codeine [Codeine] Allergy (Mild, Verified 09/18/23 11:53) RASH meperidine [From Demerol] Allergy (Mild, Verified 09/18/23 11:53) RASH HPI HPI PO LT CTR, cub vs trans 09/05/23 AR: Details: Giana is a 78 year old right hand dominant Diabetic Turkmen speaking woman who returns S/P left carpal tunnel & cubital tunnel release, DOS: 09/05/23 She says she is doing well, her sensation has improved and is now normal to all fingers. She is happy with the results of her surgery. She is a Diabetic, which she says is well-controlled. [facility] Medical History Generalized degenerative joint disease of hand Arthritis Hx of transfusion of packed red blood cells Depression Diabetes Elevated cholesterol HTN (hypertension) Surgical History Hx of shoulder surgery Hx of varicose vein ligation History of evacuation of hematoma History of carpal tunnel release History of total bilateral knee replacement H/O colonoscopy Social History Alcohol intake: never Comment: counts correct Patient Tobacco Use Status: Never used Tobacco Review of Systems Const All systems reviewed & are unremarkable except as noted in HPI and below Physical Exam Const General: no acute distress and alert Orientation/consciousness: patient oriented x3 Neuro General: patient oriented x3 Extrem Other: The patient was alert oriented and in no acute distress The incision is healing well with no erythema drainage or evidence of infection. Sutures removed and Steri-Strips applied She can make a fist and extend all her digits Sensation is intact and normal to the tips of all digits Cap refill is brisk Nerve Conduction Study: Left side only IMPRESSION: 1. This is an abnormal study. 2. There is electrodiagnostic evidence for left moderate-severe median neuropathy at the wrist, consistent with carpal tunnel syndrome. 3. 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 4. There is no electrodiagnostic evidence for brachial plexopathy or cervical ra diculopathy. Aleja Solorzano MD, RAOUL 02/28/23 Psych Appearance: grossly normal Affect: normal affect Attitude: cooperative Assessment & Plan Assessment & Plan (1) Cubital tunnel syndrome on left: Code(s): G56.22 - Lesion of ulnar nerve, left upper limb Category: Medical (2) Carpal tunnel syndrome of left wrist: Code(s): G56.02 - Carpal tunnel syndrome, left upper limb Category: Medical (3) Right wrist pain: Code(s): M25.531 - Pain in right wrist Category: Medical Plan Assessment & Plan: 1. Left Carpal tunnel syndrome, S/P release DOS: 09/05/23 Pre-operative symptoms intermittent, but daily, worse at night. Now with normal sensation 2. Left Cubital tunnel syndrome,S/P release DOS: 09/05/23 Pre-operative symptoms intermittent throughout the week Now with normal sensation The patient appears to be doing well post-operatively I educated her about the post-operative course I discussed activity modifications, she is to lift nothing heavier than a cellphone for the next two weeks She will perform gentle ROM exercises at home She should avoid any underwater activities for the next 5 days She should gently massage about the incision site to reduce the risk of hypersensitivity She can follow up prn 3. Right hand & wrist pain & stiffness After a fall, DOI: 05/02/23 Improved She did not bring this up this visit Scribed for Nila Zazueta MD by toña Latham, on 06/19/23 at 3:15 PM, EST. Scribe Plan - Not visible on output: Scribed for Nila Zazueta MD by toña Latham, on [ ] at [ ], EST. Coding Level of Care Code Global (71554) Diagnoses Cubital tunnel syndrome on left G56.22 Carpal tunnel syndrome of left wrist G56.02 Right wrist pain M25.531
== END 2023-09-18 12:24 | disposition home or self-care (01) ==
PROVIDERS: PCP General Practice; Visit Provider Orthopaedic Surgery
DX: G56.22 Lesion of ulnar nerve, left upper limb (principal); G56.02 Carpal tunnel syndrome, left upper limb; M25.531 Pain in right wrist
CPT/HCPCS: 99024

== ENCOUNTER → 2023-09-18 11:38 | Outpatient (BNVA) | payer OTHER, SELFPAY | PROVIDERS: PCP General Practice; Visit Provider Orthopaedic Surgery | DX: Z48.02 Encounter for removal of sutures (principal); G56.02 Carpal tunnel syndrome, left upper limb; G56.22 Lesion of ulnar nerve, left upper limb; M25.531 Pain in right wrist | CPT/HCPCS: 99212 ==

== ENCOUNTER 2023-11-16 15:06 | Emergency (ER) | payer OTHER, SELFPAY ==
--- NOTE | ~2023-11-16 | CT_ITS ---
EXAMINATION: CT head/brain wo IV con CLINICAL INFORMATION: Reason for Exam left facial paralysis COMPARISON: None. TECHNIQUE: Contiguous axial imaging was performed from the skull base to vertex without intravenous contrast. Sagittal and coronal reformatted images were obtained. This CT examination was performed using dose optimization techniques as appropriate, variously including the following: * Automated exposure control * Adjustment of mA and/or kV according to patient size (this includes techniques or standardized protocols for targeted exams where dose is matched to indication/reason for exam; i.e. extremities or head) Use of iterative reconstruction technique DLP: 672 mGy-cm FINDINGS: No acute osseous or soft tissue abnormality. Frothy secretions in the right frontal sinus with patchy paranasal sinus mucosal thickening, recommend correlation with symptoms of sinusitis. Status post bilateral lens replacements. There is no evidence of acute intracranial hemorrhage or territorial infarction. No abnormal mass effect or midline shift is seen. Hernandez to white matter differentiation is well preserved. No extra-axial fluid collections are identified. No hydrocephalus. CT/CT head/brain wo IV con IMPRESSION: 1. No acute intracranial abnormality. 2. Frothy secretions in the right frontal sinus with patchy paranasal sinus mucosal thickening, recommend correlation with symptoms of sinusitis.
[2023-11-16 15:15] VITALS: BP 186/99; PULSE 110; RESP 16; TEMP 36.4; O2SAT 95; BMI 30.1
--- NOTE | 2023-11-16 15:19 | ED_ITS ---
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 Patient states that she awoke with left-sided facial burning and pain and drooping on the left side of her face. She states that she has had difficulty eating due to the weakness. She denies severe headache, fevers, chills chest pain, shortness of breath, abdominal pain, nausea, vomiting or diarrhea. Denies history of similar symptoms in the past. No known tick bites. No other complaints or concerns at this time. MD complaint: Left-sided facial droop, pain Onset (ago): day(s) Radiation: non-radiation Quality: aching Pain Consistency: constant Relieving factors: none Exacerbating factors: none Associated symptoms: denies other symptoms Treatments prior to arrival: none Related Data Home Medications ?Medication ?Instructions ?Recorded ?Confirmed amlodipine 2.5 mg tablet 2.5 mg PO DAILY 09/06/20 09/05/23 atorvastatin 80 mg tablet 80 mg PO BEDTIME 09/06/20 09/05/23 hydrochlorothiazide 25 mg tablet 25 mg PO DAILY 09/06/20 09/05/23 metformin 500 mg tablet,extended 500 mg PO DAILY 09/06/20 09/05/23 release 24 hr [id number] 1 tab PO DAILY 09/06/20 09/05/23 tablet (Cerovite Senior) venlafaxine 75 mg capsule,extended 75 mg PO QAM 09/06/20 09/05/23 release 24 hr Previous Rx's ?Medication ?Instructions ?Recorded amoxicillin 875 mg-potassium 1 tab PO BID 7 days #13 tabs 11/16/23 clavulanate 125 mg tablet prednisone 10 mg tablet See Rx Instructions .Route 11/16/23 .COMPLEX #64 tabs valacyclovir 1 gram tablet 1,000 mg PO TID 7 days #21 tabs 11/16/23 Allergies Allergy/AdvReac Type Severity Reaction Status Date / Time codeine [Codeine] Allergy Mild RASH Verified 11/16/23 15:17 meperidine [From Demerol] Allergy Mild RASH Verified 11/16/23 15:17 Review of Systems 2 Review of Systems: Yes all other systems are reviewed and are negative Constitutional: Constitutional: Reports as per [facility] Past Medical History Medical History Generalized degenerative joint disease of hand Arthritis Hx of transfusion of packed red blood cells Depression Diabetes Elevated cholesterol HTN (hypertension) Surgical History Hx of shoulder surgery Hx of varicose vein ligation History of evacuation of hematoma History of carpal tunnel release History of total bilateral knee replacement H/O colonoscopy Social History Social History Alcohol intake: never Comment: counts correct Patient Tobacco Use Status: Never used Tobacco Advance Directives: No Advance Directives Information Provided: No Do you have a plan to hurt others: No Plan Physical Exam ED Vital Signs: Vital Signs - 24 hr 11/16/23 15:15 11/16/23 18:59 Temperature 97.6 F 98 F Pulse Rate 110 H 94 Respiratory Rate 16 20 Blood Pressure 186/99 H 158/90 H Pulse Oximetry 95 98 Oxygen Delivery Method Room Air Room Air BMI result Body Mass Index 30.1 Const General: cooperative, comfortable and no acute distress Orientation/consciousness: patient oriented x3 Limitations: no limitations HENMT Other: Tenderness palpation along the left maxillary sinuses. Head: Yes normal to inspection, Yes normocephalic and Yes atraumatic Ears: hearing grossly normal bilaterally and TM's normal bilaterally (No lesions) General nose exam: Normal external nose present Face and sinus: Yes normal facial exam Mouth: Normal oral and palatal mucosa present, oropharynx normal and moist mucous membranes Throat: Yes posterior oropharynx normal Eyes Other: Fluorescein stain was performed in left eye, no fluorescein uptake seen. No conjunctival injection, left eye is watering, with delayed blinking General: appearance normal, both eyes and all related structures Eyelids: Yes eyelids normal Conjunctivae: conjunctivae normal Sclerae: sclerae normal Pupils: Equal, round and reactive pupils present EOM: EOMs intact bilaterally Neck Neck: Yes normal visual inspection, Yes full ROM and Yes no lymphadenopathy Lymphatic: no lymphadenopathy noted Chest Chest palpation & inspection: normal inspection of the chest Resp Effort & Inspection: normal respiratory effort and able to speak in complete sentences Auscultation: clear to auscultation bilaterally, no crackles, no rales, no rhonchi and no wheezes Cardio Rate: regular rate Rhythm: regular rhythm Heart sounds: S1 normal heart sound present and S2 normal heart sound present GI Inspection: Yes normal to inspection Skin General skin exam: no rashes or lesions noted Trauma: no lacerations or abrasions Wounds: no wounds Neuro Other: Left-sided facial droop noted. Asymmetric smile, left eyebrow unable to be raised due to weakness. General: patient oriented x3 and moves all extremities Cranial nerves: Yes Equal, round and reactive pupils present Cognition (Neuro): normal cognition Gait exam (Neuro): Normal gait present Motor exam (neuro): 5/5 motor strength present throughout and Pronator motor function not present Coordination: [id number]-pf-[id number] test normal Extrem General: Yes normal to inspection Right upper extremity: normal to inspection Left upper extremity: normal to inspection Right lower extremity: normal to inspection Left lower extremity: normal to inspection NIH Stroke Scale Internal: Initial- Upon Arrival Time: 19:03 Level of Consciousness: Alert Level of Consciousness Questions: Answers both questions correctly Level of Consciousness Commands: Performs both tasks correctly Best Gaze: Normal Visual: No visual loss Facial Palsy: Partial paralysis Motor Arm (Right): No drift Motor Arm (Left): No drift Motor Leg (Right): No drift Motor Leg (Left): No drift Limb Ataxia: Absent Sensory: Normal Best Language: No aphasia Dysarthia: Normal Extinction and Inattention: No abnormality Score: 2 Course Course Course Narrative: This is a Rapid Medical Examination (RME) performed by Jcarlos Phelan PA-C in triage. Full HPI, ROS, assessment and treatment plan per primary provider in the Main ED. 78 yo yi speaking female hx of hypertension, arthritis, depression, diabetes on metformin here for eval of left upper dental pain. she is s/p left upper molar extraction 2 wks ago. reports increasing pain x4 days. on exam, patient noted to have left facial nerve palsy involving forehead. Unable to close left eye. strength 5/5 intact throughout. No pronator drift. ambulating w/ steady gait. Plan: bells r/o. labs, viral/ strep swabs, mono, inflammatory markers, imaging, tick/Lyme panel Medications Administered Discontinued Medications Generic Name Dose Route Start Last Admin Trade Name Josseline PRN Reason Stop Dose Admin Amoxicillin/Clavulanate Potassium 875 mg 11/16/23 18:16 11/16/23 18:33 Amoxicillin/Potassium Clav 875 Mg Tablet PO 11/16/23 18:17 875 mg ONCE ONE Administration Fluorescein Sodium 1 strip 11/16/23 18:04 11/16/23 18:33 Fluorescein Sodium Strip EYE-LEFT 11/16/23 18:05 1 strip ONCE ONE Administration Prednisone 60 mg 11/16/23 18:16 11/16/23 18:33 Prednisone 20 Mg Tablet PO 11/16/23 18:17 60 mg ONCE ONE Administration Tetracaine HCl 1 drop 11/16/23 18:04 11/16/23 18:33 Tetracaine Hcl/Pf 0.5% Oph Shakira 4 Ml Drops EYE-LEFT 11/16/23 18:05 1 drop ONCE ONE Administration Valacyclovir HCl 1,000 mg 11/16/23 18:16 11/16/23 18:33 Valacyclovir Hcl 1,000 Mg Tablet PO 11/16/23 18:17 1,000 mg ONCE ONE Administration Medical Decision Making Medical Decision Making MDM Narrative: This is a 78-year-old female, with a history of diabetes, who presents emergency department with complaints of left-sided facial pain, weakness, and burning times 2 days. Patient states that she has had difficulty eating secondary to the weakness. On initial arrival, blood pressure elevated at 186/99, upon my assessment, patient's blood pressure improved to 158/90 she is speaking in full sentences, there is left-sided facial droop noted, asymmetric smile with left- sided facial droop, unable to raise eyebrow on the left. Symptoms and presentation concerning for Catherine's palsy. She also reports difficulty blinking her left eye secondary to the paralysis. She has no upper or lower extremity neurologic findings. NIH score of 2 States some blurred vision, no eye pain. Given vision changes, a fluorescein stain was performed, no uptake, ulcerations, or herpetic lesions noted. Discussed findings with patient. Patient's visual acuity was intact. Patient dose with 1st dose of acyclovir, prednisone, and Augmentin. She does have tenderness palpation along her maxillary sinus therefore treating for acute sinusitis as well. Discussed workup with my attending physician, Dr. Martinez who recommends this treatment regimen. Also recommending long taper after 7 day course of prednisone, decreasing by 10 mg every 2 days. Discussed strict return precautions with patient, she understands and agrees with plan. Patient stable for discharge. Differential Diagnosis Differential Diagnoses: The differential diagnosis associated with the presentation includes Catherine's palsy, CVA-unlikely, trigeminal neuralgia Admission/Observation Consideration of admission/observation: Escalation of care including admission/observation considered Lab Data MDM Lab Attestation statement: I reviewed the patient's lab results. No leukocytosis, stable H&H, elevated ESR and CRP 11/16/23 15:39 11/16/23 15:39 Labs: Lab Results 11/16/23 Range/Units 15:39 WBC 6.4 (4.8-10.8) X10*3/uL RBC 4.91 (4.20-5.50) X10*6/uL Hgb 14.7 (12.0-16.0) g/dl Hct 42.8 (37.0-47.0) % MCV 87.2 (80.0-98.0) fL MCH 29.9 (27.0-33.0) pg MCHC 34.3 (31.0-35.0) g/dl RDW 13.2 (11.0-16.0) % Plt Count 270 (160-400) X10*3/uL MPV 11.4 (9.4-12.3) fL Immature Gran % (Auto) 0.2 (0.0-0.4) % Neut % (Auto) 64.3 (45-73) % Lymph % (Auto) 27.4 (20-40) % Swift % (Auto) 6.8 (2-11) % Eos % (Auto) 0.8 (0-4) % Baso % (Auto) 0.5 (0-2) % Lymph # (Auto) 1.8 (1.2-4.9) X10*3/uL Swift # (Auto) 0.4 (0.1-1.2) X10*3/uL Eos # (Auto) 0.1 (0.0-0.4) X10*3/uL Baso # (Auto) 0.0 (0.0-0.2) X10*3/uL Abs Immat Gran (auto) 0.01 (0.00-0.03) X10*3/uL Absolute Neuts (auto) 4.1 (2.0-8.3) x10*3/uL Absolute Nucleated RBC 0.000 (0.0-0.012) X10*3/uL Nucleated RBC % (auto) 0.0 (0.0-0.2) /100WBC ESR 34 H (0-20) MM/HR Sodium 143 (135-145) mmol/L Potassium 3.9 (3.3-5.1) mmol/L Chloride 102 (96-108) mmol/L Carbon Dioxide 27 (22-29) mmol/L Anion Gap 18 (12-20) BUN 15 (9-16) mg/dL Creatinine 0.75 (0.5-1.4) mg/dL Estim Creat Clear Calc 62.7 Estimated GFR > 60 Random Glucose 110 (60-115) mg/dL Calcium 10.2 (8.4-10.2) mg/dL Magnesium 2.2 (1.6-2.6) mg/dL Total Bilirubin 0.7 (0.0-1.0) mg/dL AST 19 (5-31) U/L ALT 15 (0-31) U/L Alkaline Phosphatase 109 (39-117) U/L C-Reactive Protein 1.26 H (< or = 0.50) mg/dL Total Protein 8.3 H (6.5-8.0) g/dL Albumin 4.6 (3.5-5.0) g/dL Monoscreen Negative (Negative) Influenza Type A (PCR) NEGATIVE (Negative) Influenza Type B (PCR) NEGATIVE (Negative) RSV RNA Qual (PCR) NEGATIVE (Negative) SARS-CoV-2 RNA (RT-PCR) NEGATIVE (Negative) S. pyogenes GrpA KELLY Negative (Negative) Radiology Impression Discussion of test interpretation with radiology: I have reviewed the radiologist's reading. Radiologist Impression: CT/CT head/brain wo IV con IMPRESSION: 1. No acute intracranial abnormality. 2. Frothy secretions in the right frontal sinus with patchy paranasal sinus mucosal thickening, recommend correlation with symptoms of sinusitis. Dictated By: Sheryl Calle MD External Record Review External record reviewed: Inpatient record, Office record, Outpatient record, Prior outpatient labs, Prior outpatient radiology, Primary care record and Outside ED record Discharge Plan Discharge Clinical Impression: Catherine's palsy Patient Disposition: Home, Self-Care Instructions: Catherine Palsy (ED) Additional Instructions: You were seen in the emergency department due to left-sided facial pain. You have Catherine's palsy. This can be caused by a virus that targets the nerve causing weakness, and pain in your face. You also have evidence of a sinus infection clinically as well as on the CT scan. I am treating you with multiple medications including an antibiotic, and antiviral, and prednisone. It is very important that you finish the entire course of these medications. You may use [id number] lubricating eyedrops for your eye. If your eye becomes paralyzed open, you may tape shut. If any new or worsening symptoms occur including but not limited to severe headache, dizziness, chest pain, shortness of breath, please return for re- evaluation We also tested you for tick-borne illnesses, we will call you if any of these are positive. Prescriptions: New prednisone 10 mg tablet See Rx Instructions .ROUTE .COMPLEX Qty: 64 0RF Rx Instructions: Take 60 mg (6 tablets) for 6 days (day 2-7) Take 50 mg (5 tablets) for 2 days (day 8-10) Take 40mg (4 tablets) for 2 days (day 11-13) Take 30mg (3 tablets) for 2 days (day 14-16) Take 20mg (2 tablets) for 2 days (day 17-19) valacyclovir 1 gram tablet 1,000 mg PO TID 7 Days Qty: 21 0RF amoxicillin-pot clavulanate 875-125 mg tablet 1 tab PO BID 7 Days Qty: 13 0RF No Action atorvastatin 80 mg tablet 80 mg PO BEDTIME venlafaxine 75 mg capsule,extended release 24hr 75 mg PO QAM amlodipine 2.5 mg tablet 2.5 mg PO DAILY hydrochlorothiazide 25 mg tablet 25 mg PO DAILY metformin 500 mg tablet extended release 24 hr 500 mg PO DAILY Cerovite Senior Tablet 1 tab PO DAILY Print Language: Yakut
[2023-11-16 15:46] LABS: MANUAL DIFF FLAG NO
[2023-11-16 15:48] LABS: Basophils Percent Auto 0.5 % (0-2); Eosinophils Absolute Auto 0.1 X10*3/uL (0.0-0.4); Eosinophils Percent Auto 0.8 % (0-4); Hematocrit 42.8 % (37.0-47.0); Hemoglobin 14.7 g/dl (12.0-16.0); Imm Gran Abs Auto 0.01 X10*3/uL (0.00-0.03); Imm Gran Pct Auto 0.2 % (0.0-0.4); Lymphocytes Absolute Auto 1.8 X10*3/uL (1.2-4.9); Lymphocytes Percent Auto 27.4 % (20-40); Mean Corpuscular HGB Conc 34.3 g/dl (31.0-35.0); Mean Corpuscular Hemoglobin 29.9 pg (27.0-33.0); Mean Corpuscular Volume 87.2 fL (80.0-98.0); Mean Platelet Volume 11.4 fL (9.4-12.3); Monocytes Absolute Auto 0.4 X10*3/uL (0.1-1.2); Monocytes Percent Auto 6.8 % (2-11); Neutrophils Absolute Auto 4.1 x10*3/uL (2.0-8.3); Neutrophils Percent Auto 64.3 % (45-73); Platelet Count 270 X10*3/uL (160-400); Red Blood Count 4.91 X10*6/uL (4.20-5.50); Red Cell Distribution Width 13.2 % (11.0-16.0); White Blood Count 6.4 X10*3/uL (4.8-10.8)
[2023-11-16 16:15] LABS: Alanine Aminotransferase 15 U/L (0-31); Albumin Level 4.6 g/dL (3.5-5.0); Alkaline Phosphatase 109 U/L (39-117); Anion Gap 18 (12-20); Aspartate Amino Transferase 19 U/L (5-31); Bilirubin Total 0.7 mg/dL (0.0-1.0); Blood Urea Nitrogen 15 mg/dL (9-16); C Reactive Protein 1.26 mg/dL (< or = 0.50); Calcium 10.2 mg/dL (8.4-10.2); Carbon Dioxide 27 mmol/L (22-29); Chloride 102 mmol/L (96-108); Creatinine Clr Calc Pharmacy 62.7; Estimated Glomerular Filt Rate > 60; Glucose Random 110 mg/dL (60-115); Magnesium 2.2 mg/dL (1.6-2.6); Potassium 3.9 mmol/L (3.3-5.1); Sodium 143 mmol/L (135-145); Total Protein 8.3 g/dL (6.5-8.0)
[2023-11-16 16:31] LABS: IDNOW Serial# 08D9AD1C; Strep A Nucleic Acid Negative (Negative)
[2023-11-16 16:33] LABS: Erythrocyte Sedimentation Rate 34 MM/HR (0-20)
[2023-11-16 16:39] LABS: Influenza A PCR NEGATIVE (Negative); Influenza B PCR NEGATIVE (Negative); Resp Syncy Virus RNA Qual PCR NEGATIVE (Negative); SARS COV2 PCR INHOUSE NEGATIVE (Negative)
[2023-11-16 16:49] LABS: Monotest Negative (Negative)
[2023-11-16] MEDS: Amoxicillin/Potassium Clav 875 MG TABLET PO (18:33)
[2023-11-16] MEDS: predniSONE 20 MG TABLET 60 MG PO (18:33)
[2023-11-16] MEDS: valACYclovir HCL 1,000 MG TABLET 1000 MG PO (18:33)
[2023-11-16] MEDS: Tetracaine HCl/PF 0.5% Oph Sol 4 ML DROPS 1 DROP EYE-LEFT (18:33)
[2023-11-16] MEDS: Fluorescein Sodium STRIP 1 STRIP EYE-LEFT (18:33)
[2023-11-16 18:59] VITALS: BP 158/90; PULSE 94; RESP 20; TEMP 36.6; O2SAT 98
[2023-11-16 19:08] VITALS: BP 158/90; PULSE 94; RESP 20; TEMP 36.6; O2SAT 98
[2023-11-18 21:38] LABS: Lyme Abs Screen <0.90 index
[2023-11-19 21:23] LABS: A. Phagocytphilium DNA,RT-PCR NOT DETECTED (NOT DETECTED); Babesia Microti DNA, RT-PCR NOT DETECTED (NOT DETECTED); Borrelia Miyamotoi,DNA RT-PCR NOT DETECTED (NOT DETECTED); E.Chaffeensis DNA RT-PCR NOT DETECTED (NOT DETECTED); Lyme(Borrelia ssp)DNA RT-PCR NOT DETECTED (NOT DETECTED)
== END 2023-11-16 18:55 | disposition home or self-care (01) ==
PROVIDERS: Physician Assistant Medical; Emergency Provider Emergency Medicine Emergency Medical Services; PCP General Practice
DX: G51.0 Bell's palsy (principal); E11.9 Type 2 diabetes mellitus without complications; I10 Essential (primary) hypertension; E78.00 Pure hypercholesterolemia, unspecified; Z79.84 Long term (current) use of oral hypoglycemic drugs; Z03.818 Encounter for observation for suspected exposure to other biological agents ruled out; Z79.02 Long term (current) use of antithrombotics/antiplatelets; Z79.899 Other long term (current) drug therapy
CPT/HCPCS: 0241U; 36415; 70450; 80053; 83735; 85025; 85652; 86140; 86308; 86617; 86618; 87468; 87469; 87478; 87484; 87651; 87798; 99283; 99284

== ENCOUNTER 2023-11-27 11:32 | Emergency (ER) | payer OTHER, SELFPAY ==
[2023-11-27] VITALS (11 sets, daily range): BP systolic 78–110; BP diastolic 21–74; PULSE 105–118; RESP 20–28; TEMP 36.2–37.6; O2SAT 92–98; BMI 31.8
--- NOTE | ~2023-11-27 | US_ITS ---
EXAMINATION: US ABDOMEN LIMITED CLINICAL INFORMATION: Abnormal liver function tests and tenderness. COMPARISON: 12/12/2021. TECHNIQUE: Real-time imaging of the right upper quadrant abdominal viscera. The gallbladder and common bile duct are studied only, per the ordering physician. FINDINGS: PANCREAS: Not studied. LIVER: Not studied. GALLBLADDER: No shadowing gallstones seen. Gallbladder wall thickening at 10 mm with fluid/edema in the gallbladder wall. There is pericholecystic fluid observed. COMMON BILE DUCT: Normal in caliber measuring 0.3 cm in diameter. RIGHT KIDNEY: Not studied. FREE FLUID: Pericholecystic fluid noted. US/US abdomen limited IMPRESSION: No shadowing gallstones noted. Gallbladder wall thickening at 10 mm with fluid/edema in the gallbladder wall. There is pericholecystic fluid.
--- NOTE | ~2023-11-27 | XR_ITS ---
EXAMINATION: XR CHEST CLINICAL INFORMATION: Weakness. Hypotension. Tachycardia. COMPARISON: 11/12/2020 TECHNIQUE: Frontal view of the chest was obtained. FINDINGS: The lungs are well expanded. No focal consolidation. No pleural effusion. Cardiac silhouette is unchanged. Status post resection/amputation of distal right clavicle. XR/XR chest 1V IMPRESSION: No acute abnormality.
--- NOTE | ~2023-11-27 | CT_ITS ---
EXAMINATION: CT ANGIOGRAM OF THE CHEST WITH AND WITHOUT CONTRAST (CT PULMONARY ANGIOGRAM FOR PE) CLINICAL INFORMATION: Reason for Exam large RV on echo, hypotension COMPARISON: CT angiogram chest 11/12/2020 TECHNIQUE: Prior to contrast administration, noncontrast localization images were obtained. Subsequently, multidetector volumetric imaging was performed from the thoracic inlet to below the diaphragms following the administration of 65 mL Omnipaque 350 intravenous contrast. No contrast reaction reported Sagittal, coronal, and MIP oblique sagittal reformatted images were obtained on the CT workstation, uploaded to PACS, and reviewed. This CT examination was performed using dose optimization techniques as appropriate, variously including the following: *Automated exposure control *Adjustment of mA and/or kV according to patient size (this includes techniques or standardized protocols for targeted exams where dose is matched to indication/reason for exam; i.e. extremities or head) *Use of iterative reconstruction technique Total exam dose-length product 364 mGy-cm FINDINGS: QUALITY OF STUDY/CONTRAST BOLUS: Satisfactory. PULMONARY ARTERIES: Extensive bilateral large pulmonary emboli are present involving all lobes of the lungs bilaterally. There is a large saddle embolus straddling the main pulmonary artery bifurcation. THORACIC AORTA: No aneurysm. LUNG: No focal consolidation, nodules or masses. PLEURA: There is a small right pleural effusion. No left pleural effusion or pneumothorax. MEDIASTINUM: Normal heart size. No pericardial effusion. No hilar or mediastinal lymphadenopathy. There is septal bowing indicative of right heart strain. CORONARY ARTERY CALCIFICATION: None visualized on this study. CHEST WALL/AXILLA: No axillary or internal mammary lymphadenopathy. OSSEOUS STRUCTURES: No acute or suspicious osseous abnormality. UPPER ABDOMEN: Unremarkable. There is reflux of contrast into the hepatic veins consistent with elevated right heart pressures. CT/CT angio chest PE protocol IMPRESSION: Extensive bilateral pulmonary emboli with saddle embolus and evidence of right heart strain. VTE: positive.
--- NOTE | 2023-11-27 11:58 | ED.GENADULT ---
HPI - General Adult General Chief complaint: Altered Mental Status Stated complaint: LETHARGY,? GABAPENTIN,NARCAN GIVEN BY [facility] PER EMS Time Seen by Provider: 11/27/23 11:55 History of Present Illness ED Provider: Nasir PRINCE narrative: The patient is a 78-year-old female who has been feeling unwell for about 3 weeks. Apparently 3 weeks ago she had a dental extraction of a right tooth and she has been having a lot of mouth pain over the last 3 weeks. She has a apparently been eating and drinking very little and has been staying in bed. She apparently went to a follow up appointment with the dentist yesterday and was told that she had trigeminal neuralgia. Despite going to the dentist yesterday the patient's daughter says that the patient has really not been doing poorly for the last 3 weeks but particularly over the last 4 days. She seemed very weak. Today they took her to an urgent care at [facility] where the patient was apparently given a dose of naloxone because of decreased responsiveness. They called an ambulance and she was brought to the hospital. Here the patient was awake and complaining of feeling very dizzy but not really having other specific complaints. She said the dizziness is worse when she positions. She had no particular headache. No chest breath, no abdominal pain. She has not had nausea or vomiting. She has had some mild urinary discomfort and she thought that she might have had some blood in her urine today. No pain or swelling in her legs Related Data Home Medications ?Medication ?Instructions ?Recorded ?Confirmed amlodipine 2.5 mg tablet 2.5 mg PO DAILY 09/06/20 09/05/23 atorvastatin 80 mg tablet 80 mg PO BEDTIME 09/06/20 09/05/23 hydrochlorothiazide 25 mg tablet 25 mg PO DAILY 09/06/20 09/05/23 metformin 500 mg tablet,extended 500 mg PO DAILY 09/06/20 09/05/23 release 24 hr cruvxwzodtlz-ylpreinm-lyygss 1 tab PO DAILY 09/06/20 09/05/23 tablet ([employer]) venlafaxine 75 mg capsule,extended 75 mg PO QAM 09/06/20 09/05/23 release 24 hr Previous Rx's ?Medication ?Instructions ?Recorded amoxicillin 875 mg-potassium 1 tab PO BID 7 days #13 tabs 11/16/23 clavulanate 125 mg tablet prednisone 10 mg tablet See Rx Instructions .Route 11/16/23 .COMPLEX #64 tabs valacyclovir 1 gram tablet 1,000 mg PO TID 7 days #21 tabs 11/16/23 Allergies Allergy/AdvReac Type Severity Reaction Status Date / Time codeine [Codeine] Allergy Mild RASH Verified 11/27/23 11:43 meperidine [From Demerol] Allergy Mild RASH Verified 11/16/23 15:17 Review of Systems Review of Systems: Yes all other systems are reviewed and are negative [facility] Past Medical History Medical History Generalized degenerative joint disease of hand Arthritis Hx of transfusion of packed red blood cells Depression Diabetes Elevated cholesterol HTN (hypertension) Surgical History Hx of shoulder surgery Hx of varicose vein ligation History of evacuation of hematoma History of carpal tunnel release History of total bilateral knee replacement H/O colonoscopy Social History Social History Alcohol intake: never Comment: counts correct Patient Tobacco Use Status: Never used Tobacco Smoked in Last 30 Days: No Use of substances other than those prescribed or required for medical reasons: No Advance Directives: No Advance Directives Information Provided: No Physical Exam ED Vital Signs: Vital Signs - 24 hr 11/27/23 11:40 11/27/23 11:52 11/27/23 12:00 Temperature 99.6 F Pulse Rate 118 H 116 H 106 H Respiratory Rate 24 H 28 H 26 H Blood Pressure 78/54 L 84/55 L 95/58 L Pulse Oximetry 95 92 93 Oxygen Delivery Method Room Air Room Air Room Air 11/27/23 13:01 11/27/23 13:27 11/27/23 16:09 Temperature 97.4 F Pulse Rate 110 H 108 H 107 H Respiratory Rate 28 H 22 H 20 Blood Pressure 79/58 L 92/65 99/57 L Pulse Oximetry 98 95 95 Oxygen Delivery Method Room Air Room Air Room Air 11/27/23 17:45 11/27/23 18:03 11/27/23 20:16 Temperature 97.1 F 97.4 F Pulse Rate 106 H 105 H 113 H Respiratory Rate 20 20 27 H Blood Pressure 106/21 L 98/74 103/62 Pulse Oximetry 98 97 97 Oxygen Delivery Method Room Air Room Air Room Air BMI result Body Mass Index 31.8 Const Other: The patient is a 78-year-old woman who was awake and alert. She looked unwell but seemed coherent. She did not seem in respiratory distress or pain HENMT Other: Face is symmetrical. Mucous membranes looked somewhat dry Eyes Other: Pupils are round equal, conjunctivae are clear Neck Other: External jugular vein seemed to somewhat prominent Resp Other: Breath sounds clear and equal Cardio Other: The patient was tachycardic. No definite murmur. Rate: tachycardic Rhythm: regular rhythm Heart sounds: S1 normal heart sound present and S2 normal heart sound present GI Other: There is mild right upper quadrant tenderness. No rebound or guarding Skin Other: Skin is pale and dry Neuro Other: The patient is awake and alert. Fell oriented. Speech was clear. No nystagmus. Eye movements were normal. No facial asymmetry. She seems to have symmetrical strength in her extremities. No obvious focal neurological deficit Extrem Other: No calf asymmetry Medications Administered Generic Name Dose Route Start Last Admin Trade Name Freq PRN Reason Stop Dose Admin Heparin Sodium/Sodium Chloride 25,000 unit in 250 mls @ 0 mls/hr 11/27/23 18:45 11/27/23 19:49 Heparin Sodium,Porcine/1/2ns IVCONT 14 units/kg/hr .Q0M HEMA 11.4 mls/hr Administration Protocol Per Protocol Discontinued Medications Generic Name Dose Route Start Last Admin Trade Name Freq PRN Reason Stop Dose Admin Heparin Sodium (Porcine) 6,500 unit 11/27/23 18:44 11/27/23 19:42 Heparin Sodium,Porcine 5,000 Unit/Ml Vial 80 unit/kg (6500 unit) 11/27/23 18:45 6,500 unit IVPUSH Administration ONCE ONE Sodium Chloride 1,000 mls @ 999 mls/hr 11/27/23 12:15 11/27/23 13:23 Ns IV 11/27/23 13:15 Infused .Q1H1M HEMA Infusion Sodium Chloride 2,442 mls @ 2,442 mls/hr 11/27/23 12:51 11/27/23 18:28 Ns 30 ml/kg infuse over 1 hr (2442 ml) 11/27/23 13:50 Infused IV Infusion .Q1H STA Piperacillin Sod/Tazobactam 100 mls @ 200 mls/hr 11/27/23 12:51 11/27/23 18:28 Sod 4.5 gm/ Sodium Chloride IV 11/27/23 13:20 Infused ONCE ONE Infusion Vancomycin HCl 2,000 mg in 500 mls @ 250 mls/hr 11/27/23 12:52 11/27/23 18:28 Vancomycin/Ns IV 11/27/23 14:51 Infused ONCE ONE Infusion Lactated Ringer's 1,000 mls @ 999 mls/hr 11/27/23 16:45 11/27/23 18:33 Lr IV 11/27/23 17:45 Not Given .Q1H1M HEMA Iohexol 100 ml 11/27/23 18:26 11/27/23 18:27 Iohexol 350 Mg/Ml 100 Ml Infus..Btl IV 11/27/23 18:27 65 ml ONCE ONE Administration Medical Decision Making Medical Decision Making MDM Narrative: 78-year-old female who arrived at the hospital by ambulance from a local. On arrival the patient was hypotensive and tachycardic. The family stated that she has been feeling unwell for 3 weeks following. Initially the patient's only complaint was feeling very dizzy when she changed position. She denied headache, chest pain, pleuritic pain, shortness of breath, abdominal pain, nausea, vomiting. Her rectal temperature was 99.6 degrees. Her oxygen saturations on room air were good and she did not exhibit any signs of respiratory difficulty or discomfort. Initially I thought the patient might be septic med she was given IV fluids as well as empiric antibiotics. The patient's evaluation was hindered by initial hemolysis of most of her chemistries. During that time the patient's vital signs seemed to improve in response to IV fluids and she seemed to feel better. Ultimately her transaminases came back somewhat elevated and on re-examination she seemed to have some right upper quadrant so an ultrasound of the right upper quadrant was obtained. Additionally a troponin finally came back elevated at 17:00. Her EKG shows sinus tachycardia with nonspecific changes. I consulted Dr. William of Cardiology and we were able to get an echocardiogram that showed good left ventricular contractility but a large right ventricle at that time the patient is still did not have any chest pain, sense of shortness of breath, hypoxia, or pleuritic pain. A CT pulmonary angiogram was ordered. I reviewed the images as soon as they were available and it was obvious the patient had a significant clot burden from pulmonary emboli. At that point I ordered a heparin bolus and drip. I consulted our ICU. My [employer] felt that given the degree of right heart embarrassment on ultrasound, degree of clot burden on CT, elevated troponin, and elevated BNP that the patient should be at a tertiary care center. I have placed a call to the transfer center at [facility]. 19:56 call from Radiology indicating the patient has extensive bilateral pulmonary emboli with right heart strain 20:[address] Shi of the ICU at [facility]. The patient will be accepted in transfer to the intensive care unit at [facility]. We also spoke about utilizing thrombolytic in this case. The clot burden on CT scan, the RV embarrassment on echocardiogram, the elevated troponin, elevated BNP, and persistent elevated lactate levels that treatment with partial dose TNK would be appropriate. I have therefore ordered 25 mg of IV TNK. I have spoken to the family about this medication. I have explained fill for risks of bleeding including intracranial bleeding. After speaking with the patient, her son, and [id number], we have agreed to proceed with TNK and transferred to [facility]. Lab Data 11/27/23 12:20 11/27/23 14:47 Labs: Lab Results 11/27/23 11/27/23 11/27/23 Range/Units 11:55 12:20 12:21 WBC 12.1 H (4.8-10.8) X10*3/uL RBC 4.55 (4.20-5.50) X10*6/uL Hgb 13.4 (12.0-16.0) g/dl Hct 41.5 (37.0-47.0) % MCV 91.2 (80.0-98.0) fL MCH 29.5 (27.0-33.0) pg MCHC 32.3 (31.0-35.0) g/dl RDW 14.2 (11.0-16.0) % Plt Count 162 D (160-400) X10*3/uL MPV 12.0 (9.4-12.3) fL Immature Gran % (Auto) 1.7 H (0.0-0.4) % Neut % (Auto) 63.0 (45-73) % Lymph % (Auto) 28.1 (20-40) % [place] % (Auto) 7.0 (2-11) % Eos % (Auto) 0.1 (0-4) % Baso % (Auto) 0.1 (0-2) % Lymph # (Auto) 3.4 (1.2-4.9) X10*3/uL [place] # (Auto) 0.8 (0.1-1.2) X10*3/uL Eos # (Auto) 0.0 (0.0-0.4) X10*3/uL Baso # (Auto) 0.0 (0.0-0.2) X10*3/uL Abs Immat Gran (auto) 0.20 H (0.00-0.03) X10*3/uL Absolute Neuts (auto) 7.6 (2.0-8.3) x10*3/uL Absolute Nucleated RBC 0.000 (0.0-0.012) X10*3/uL Nucleated RBC % (auto) 0.0 (0.0-0.2) /100WBC PT (11.1-13.3) SEC INR (0.9-1.1) APTT aPTT Heparin Protocol (53-77.9) SEC VBG pH (7.32-7.43) VBG pCO2 mmHg VBG pO2 mmHg VBG HCO3 (22-26) mmol/L VBG O2 Saturation % VBG Base Excess mmol/L Sodium (135-145) mmol/L Potassium (3.3-5.1) mmol/L Chloride (96-108) mmol/L Carbon Dioxide (22-29) mmol/L Anion Gap (12-20) BUN (9-16) mg/dL Creatinine (0.5-1.4) mg/dL Estim Creat Clear Calc Estimated GFR POC Glucose 206 H (60-115) mg/dL Random Glucose (60-115) mg/dL Lactic Acid 10.7 H* (0.5-2.0) mmol/L Lactic Acid F/U @ 2Hr (0.5-2.0) mmol/L Calcium (8.4-10.2) mg/dL Magnesium (1.6-2.6) mg/dL Total Bilirubin (0.0-1.0) mg/dL Direct Bilirubin (0.0-0.5) mg/dL AST (5-31) U/L ALT (0-31) U/L Alkaline Phosphatase (39-117) U/L Troponin I High Sens (<3.5-17.0) ng/L C-Reactive Protein (< or = 0.50) mg/dL B-Natriuretic Peptide 755 H (<100) pg/mL Total Protein (6.5-8.0) g/dL Albumin (3.5-5.0) g/dL Lipase (8-78) U/L Urine Color Urine Appearance Urine pH (5.0-9.0) Ur Specific [place] (1.005-1.025) Urine Protein (Neg-Trace) mg/dL Urine Glucose (UA) (Negative) mg/dL Urine Ketones (Negative) mg/dL Urine Blood (Negative) Urine Nitrite (Negative) Ur Leukocyte Esterase (Negative) Urine RBC (0-2) /HPF Urine WBC (0-5) /HPF Ur Squamous Epith Cells (0-2) /HPF Urine Bacteria (None Seen) Hyaline Casts (0-2) /LPF Urine Opiates Screen (Not Detect) Ur Buprenorphine Scrn (Not Detect) ng/mL Ur Oxycodone Screen (Not Detect) ng/mL Urine Methadone Screen (Not Detect) ng/mL Urine Fentanyl Screen (Not Detect) Ur Barbiturates Screen (Not Detect) Ur Phencyclidine Scrn (Not Detect) Ur Amphetamines Screen (Not Detect) U Benzodiazepines Scrn (Not Detect) Urine Cocaine Screen (Not Detect) U Marijuana (THC) Screen (Not Detect) Ethyl Alcohol mg/dL Influenza Type A (PCR) NEGATIVE (Negative) Influenza Type B (PCR) NEGATIVE (Negative) RSV RNA Qual (PCR) NEGATIVE (Negative) SARS-CoV-2 RNA (RT-PCR) NEGATIVE (Negative) 11/27/23 11/27/23 11/27/23 Range/Units 12:23 12:38 12:59 WBC (4.8-10.8) X10*3/uL RBC (4.20-5.50) X10*6/uL Hgb (12.0-16.0) g/dl Hct (37.0-47.0) % MCV (80.0-98.0) fL MCH (27.0-33.0) pg MCHC (31.0-35.0) g/dl RDW (11.0-16.0) % Plt Count (160-400) X10*3/uL MPV (9.4-12.3) fL Immature Gran % (Auto) (0.0-0.4) % Neut % (Auto) (45-73) % Lymph % (Auto) (20-40) % [place] % (Auto) (2-11) % Eos % (Auto) (0-4) % Baso % (Auto) (0-2) % Lymph # (Auto) (1.2-4.9) X10*3/uL [place] # (Auto) (0.1-1.2) X10*3/uL Eos # (Auto) (0.0-0.4) X10*3/uL Baso # (Auto) (0.0-0.2) X10*3/uL Abs Immat Gran (auto) (0.00-0.03) X10*3/uL Absolute Neuts (auto) (2.0-8.3) x10*3/uL Absolute Nucleated RBC (0.0-0.012) X10*3/uL Nucleated RBC % (auto) (0.0-0.2) /100WBC PT 14.2 H (11.1-13.3) SEC INR 1.2 H (0.9-1.1) APTT aPTT Heparin Protocol (53-77.9) SEC VBG pH 7.28 L (7.32-7.43) VBG pCO2 32 mmHg VBG pO2 31 mmHg VBG HCO3 15 L (22-26) mmol/L VBG O2 Saturation 40.0 % VBG Base Excess -9.9 mmol/L Sodium (135-145) mmol/L Potassium (3.3-5.1) mmol/L Chloride (96-108) mmol/L Carbon Dioxide (22-29) mmol/L Anion Gap (12-20) BUN (9-16) mg/dL Creatinine (0.5-1.4) mg/dL Estim Creat Clear Calc Estimated GFR POC Glucose (60-115) mg/dL Random Glucose (60-115) mg/dL Lactic Acid (0.5-2.0) mmol/L Lactic Acid F/U @ 2Hr (0.5-2.0) mmol/L Calcium (8.4-10.2) mg/dL Magnesium (1.6-2.6) mg/dL Total Bilirubin (0.0-1.0) mg/dL Direct Bilirubin (0.0-0.5) mg/dL AST (5-31) U/L ALT (0-31) U/L Alkaline Phosphatase (39-117) U/L Troponin I High Sens (<3.5-17.0) ng/L C-Reactive Protein (< or = 0.50) mg/dL B-Natriuretic Peptide (<100) pg/mL Total Protein (6.5-8.0) g/dL Albumin (3.5-5.0) g/dL Lipase (8-78) U/L Urine Color Dark Yellow Urine Appearance Cloudy Urine pH 5.5 (5.0-9.0) Ur Specific [place] 1.025 (1.005-1.025) Urine Protein 300 (3+) H (Neg-Trace) mg/dL Urine Glucose (UA) Negative (Negative) mg/dL Urine Ketones Negative (Negative) mg/dL Urine Blood Trace H (Negative) Urine Nitrite Negative (Negative) Ur Leukocyte Esterase Small (1+) H (Negative) Urine RBC 3-5 H (0-2) /HPF Urine WBC 11-20 H (0-5) /HPF Ur Squamous Epith Cells 0-2 (0-2) /HPF Urine Bacteria None Seen (None Seen) Hyaline Casts 11-20 (0-2) /LPF Urine Opiates Screen Not Detected (Not Detect) Ur Buprenorphine Scrn Not Detected (Not Detect) ng/mL Ur Oxycodone Screen Not Detected (Not Detect) ng/mL Urine Methadone Screen Not Detected (Not Detect) ng/mL Urine Fentanyl Screen Not Detected (Not Detect) Ur Barbiturates Screen Not Detected (Not Detect) Ur Phencyclidine Scrn Not Detected (Not Detect) Ur Amphetamines Screen Not Detected (Not Detect) U Benzodiazepines Scrn Not Detected (Not Detect) Urine Cocaine Screen Not Detected (Not Detect) U Marijuana (THC) Screen Not Detected (Not Detect) Ethyl Alcohol mg/dL Influenza Type A (PCR) (Negative) Influenza Type B (PCR) (Negative) RSV RNA Qual (PCR) (Negative) SARS-CoV-2 RNA (RT-PCR) (Negative) 11/27/23 11/27/23 11/27/23 Range/Units 14:47 14:47 18:43 WBC (4.8-10.8) X10*3/uL RBC (4.20-5.50) X10*6/uL Hgb (12.0-16.0) g/dl Hct (37.0-47.0) % MCV (80.0-98.0) fL MCH (27.0-33.0) pg MCHC (31.0-35.0) g/dl RDW (11.0-16.0) % Plt Count (160-400) X10*3/uL MPV (9.4-12.3) fL Immature Gran % (Auto) (0.0-0.4) % Neut % (Auto) (45-73) % Lymph % (Auto) (20-40) % [place] % (Auto) (2-11) % Eos % (Auto) (0-4) % Baso % (Auto) (0-2) % Lymph # (Auto) (1.2-4.9) X10*3/uL [place] # (Auto) (0.1-1.2) X10*3/uL Eos # (Auto) (0.0-0.4) X10*3/uL Baso # (Auto) (0.0-0.2) X10*3/uL Abs Immat Gran (auto) (0.00-0.03) X10*3/uL Absolute Neuts (auto) (2.0-8.3) x10*3/uL Absolute Nucleated RBC (0.0-0.012) X10*3/uL Nucleated RBC % (auto) (0.0-0.2) /100WBC PT (11.1-13.3) SEC INR (0.9-1.1) APTT aPTT Heparin Protocol (53-77.9) SEC VBG pH (7.32-7.43) VBG pCO2 mmHg VBG pO2 mmHg VBG HCO3 (22-26) mmol/L VBG O2 Saturation % VBG Base Excess mmol/L Sodium 148 H (135-145) mmol/L Potassium 3.3 (3.3-5.1) mmol/L Chloride 116 H (96-108) mmol/L Carbon Dioxide 13 L (22-29) mmol/L Anion Gap 22 H (12-20) BUN 20 H (9-16) mg/dL Creatinine 1.03 (0.5-1.4) mg/dL Estim Creat Clear Calc 46.9 Estimated GFR 52 POC Glucose (60-115) mg/dL Random Glucose 191 H (60-115) mg/dL Lactic Acid Cancelled (0.5-2.0) mmol/L Lactic Acid F/U @ 2Hr 11.3 H* (0.5-2.0) mmol/L Calcium 8.3 L D (8.4-10.2) mg/dL Magnesium 2.2 (1.6-2.6) mg/dL Total Bilirubin 1.0 (0.0-1.0) mg/dL Direct Bilirubin 0.5 (0.0-0.5) mg/dL AST 176 H (5-31) U/L ALT 299 H (0-31) U/L Alkaline Phosphatase 158 H (39-117) U/L Troponin I High Sens 1746.5 H* 2051.5 H* (<3.5-17.0) ng/L C-Reactive Protein 0.32 (< or = 0.50) mg/dL B-Natriuretic Peptide (<100) pg/mL Total Protein 5.7 L (6.5-8.0) g/dL Albumin 3.3 L (3.5-5.0) g/dL Lipase 36 (8-78) U/L Urine Color Urine Appearance Urine pH (5.0-9.0) Ur Specific [place] (1.005-1.025) Urine Protein (Neg-Trace) mg/dL Urine Glucose (UA) (Negative) mg/dL Urine Ketones (Negative) mg/dL Urine Blood (Negative) Urine Nitrite (Negative) Ur Leukocyte Esterase (Negative) Urine RBC (0-2) /HPF Urine WBC (0-5) /HPF Ur Squamous Epith Cells (0-2) /HPF Urine Bacteria (None Seen) Hyaline Casts (0-2) /LPF Urine Opiates Screen (Not Detect) Ur Buprenorphine Scrn (Not Detect) ng/mL Ur Oxycodone Screen (Not Detect) ng/mL Urine Methadone Screen (Not Detect) ng/mL Urine Fentanyl Screen (Not Detect) Ur Barbiturates Screen (Not Detect) Ur Phencyclidine Scrn (Not Detect) Ur Amphetamines Screen (Not Detect) U Benzodiazepines Scrn (Not Detect) Urine Cocaine Screen (Not Detect) U Marijuana (THC) Screen (Not Detect) Ethyl Alcohol < 10 Cancelled mg/dL Influenza Type A (PCR) (Negative) Influenza Type B (PCR) (Negative) RSV RNA Qual (PCR) (Negative) SARS-CoV-2 RNA (RT-PCR) (Negative) 11/27/23 Range/Units 18:58 WBC (4.8-10.8) X10*3/uL RBC (4.20-5.50) X10*6/uL Hgb (12.0-16.0) g/dl Hct (37.0-47.0) % MCV (80.0-98.0) fL MCH (27.0-33.0) pg MCHC (31.0-35.0) g/dl RDW (11.0-16.0) % Plt Count (160-400) X10*3/uL MPV (9.4-12.3) fL Immature Gran % (Auto) (0.0-0.4) % Neut % (Auto) (45-73) % Lymph % (Auto) (20-40) % [place] % (Auto) (2-11) % Eos % (Auto) (0-4) % Baso % (Auto) (0-2) % Lymph # (Auto) (1.2-4.9) X10*3/uL [place] # (Auto) (0.1-1.2) X10*3/uL Eos # (Auto) (0.0-0.4) X10*3/uL Baso # (Auto) (0.0-0.2) X10*3/uL Abs Immat Gran (auto) (0.00-0.03) X10*3/uL Absolute Neuts (auto) (2.0-8.3) x10*3/uL Absolute Nucleated RBC (0.0-0.012) X10*3/uL Nucleated RBC % (auto) (0.0-0.2) /100WBC PT (11.1-13.3) SEC INR (0.9-1.1) APTT Cancelled aPTT Heparin Protocol 28.6 L (53-77.9) SEC VBG pH (7.32-7.43) VBG pCO2 mmHg VBG pO2 mmHg VBG HCO3 (22-26) mmol/L VBG O2 Saturation % VBG Base Excess mmol/L Sodium (135-145) mmol/L Potassium (3.3-5.1) mmol/L Chloride (96-108) mmol/L Carbon Dioxide (22-29) mmol/L Anion Gap (12-20) BUN (9-16) mg/dL Creatinine (0.5-1.4) mg/dL Estim Creat Clear Calc Estimated GFR POC Glucose (60-115) mg/dL Random Glucose (60-115) mg/dL Lactic Acid (0.5-2.0) mmol/L Lactic Acid F/U @ 2Hr (0.5-2.0) mmol/L Calcium (8.4-10.2) mg/dL Magnesium (1.6-2.6) mg/dL Total Bilirubin (0.0-1.0) mg/dL Direct Bilirubin (0.0-0.5) mg/dL AST (5-31) U/L ALT (0-31) U/L Alkaline Phosphatase (39-117) U/L Troponin I High Sens (<3.5-17.0) ng/L C-Reactive Protein (< or = 0.50) mg/dL B-Natriuretic Peptide (<100) pg/mL Total Protein (6.5-8.0) g/dL Albumin (3.5-5.0) g/dL Lipase (8-78) U/L Urine Color Urine Appearance Urine pH (5.0-9.0) Ur Specific [place] (1.005-1.025) Urine Protein (Neg-Trace) mg/dL Urine Glucose (UA) (Negative) mg/dL Urine Ketones (Negative) mg/dL Urine Blood (Negative) Urine Nitrite (Negative) Ur Leukocyte Esterase (Negative) Urine RBC (0-2) /HPF Urine WBC (0-5) /HPF Ur Squamous Epith Cells (0-2) /HPF Urine Bacteria (None Seen) Hyaline Casts (0-2) /LPF Urine Opiates Screen (Not Detect) Ur Buprenorphine Scrn (Not Detect) ng/mL Ur Oxycodone Screen (Not Detect) ng/mL Urine Methadone Screen (Not Detect) ng/mL Urine Fentanyl Screen (Not Detect) Ur Barbiturates Screen (Not Detect) Ur Phencyclidine Scrn (Not Detect) Ur Amphetamines Screen (Not Detect) U Benzodiazepines Scrn (Not Detect) Urine Cocaine Screen (Not Detect) U Marijuana (THC) Screen (Not Detect) Ethyl Alcohol mg/dL Influenza Type A (PCR) (Negative) Influenza Type B (PCR) (Negative) RSV RNA Qual (PCR) (Negative) SARS-CoV-2 RNA (RT-PCR) (Negative) Independent Interpretation I performed an independent interpretation of an: EKG Interpretation: EKG at 1825 shows sinus tachycardia at 109 beats per minute. There are nonspecific ST and T-wave changes. Overall the EKG is not very different from previous EKGs. Critical Care Time Critical Care Time Critical Care Time: Yes Total Critical Care Time: 75 Attestation: The patient was critically ill with a high probability of imminent or life-threatening deterioration. ?I spent greater than 30 minutes of discontinuous time evaluating the patient, delivering critical care at the bedside, discussing evaluating data with consultants. ?Critical care time does not include time spent performing separately billable procedures or teaching. ?Time spent performing critical care with 75 minutes. Discharge Plan Discharge Clinical Impression: Bilateral pulmonary embolism, Right ventricular dilation, Elevated troponin Patient Disposition: [facility] Prescriptions: No Action atorvastatin 80 mg tablet 80 mg PO BEDTIME venlafaxine 75 mg capsule,extended release 24hr 75 mg PO QAM amlodipine 2.5 mg tablet 2.5 mg PO DAILY hydrochlorothiazide 25 mg tablet 25 mg PO DAILY metformin 500 mg tablet extended release 24 hr 500 mg PO DAILY Cerovite Senior Tablet 1 tab PO DAILY prednisone 10 mg tablet See Rx Instructions .ROUTE .COMPLEX Qty: 64 0RF Rx Instructions: Take 60 mg (6 tablets) for 6 days (day 2-7) Take 50 mg (5 tablets) for 2 days (day 8-10) Take 40mg (4 tablets) for 2 days (day 11-13) Take 30mg (3 tablets) for 2 days (day 14-16) Take 20mg (2 tablets) for 2 days (day 17-19) valacyclovir 1 gram tablet 1,000 mg PO TID 7 Days Qty: 21 0RF amoxicillin-pot clavulanate 875-125 mg tablet 1 tab PO BID 7 Days Qty: 13 0RF Print Language: [place]
[2023-11-27 11:59] LABS: Glucose, Whole Blood 206 mg/dL (60-115)
--- NOTE | 2023-11-27 11:59 | ECG_ITS ---
Test Reason : weakness Blood Pressure : / mmHG Vent. Rate : 105 BPM Atrial Rate : 105 BPM P-R Int : 148 ms QRS Dur : 082 ms QT Int : 348 ms P-R-T Axes : 077 -45 075 degrees QTc Int : 459 ms Sinus tachycardia Left axis deviation Nonspecific ST and T wave abnormality Abnormal ECG When compared with ECG of 12-NOV-2020 17:52, Nonspecific T wave abnormality now evident in Anterior leads Referred By: Wei Best Electronically Signed By:CLINT CAUSEY MD
--- NOTE | 2023-11-27 12:00 | PC.NURSE ---
Pt coming from walk in clinic at [facility] via EMS, they called due to decrease in responsiveness/ lethargy. They gave 8 mg of narcan there with no improvement. EMS gave 200 mL fluids, 4 mg of zofran. Per family pt lethargic and not feeling well for last 4 days. Pt reports blood in urine this morning with clots, went to [facility] to give sample. [place] dizzy and unwell and blacked out at the health center. Pt is alert and answering questions now but lethargic. Speech slightly slurred. Denies pain. Breathing tachypneic. BP hypotensive. Provider alerted and at bedside
[2023-11-27] MEDS: 0.9 % Sodium Chloride 1,000 ML 999 ML IV (12:23)
[2023-11-27 12:27] LABS: MANUAL DIFF FLAG NO
[2023-11-27 12:30] LABS: Venous Blood Gas Refer to POC result
[2023-11-27 12:31] LABS: VBG Base Excess -9.9 mmol/L; VBG HCO3 15 mmol/L (22-26); VBG pCO2 32 mmHg; VBG pH 7.28 (7.32-7.43); VBG pO2 31 mmHg
[2023-11-27 12:40] LABS: Basophils Percent Auto 0.1 % (0-2); Eosinophils Percent Auto 0.1 % (0-4); Hematocrit 41.5 % (37.0-47.0); Hemoglobin 13.4 g/dl (12.0-16.0); Imm Gran Pct Auto 1.7 % (0.0-0.4); Lymphocytes Absolute Auto 3.4 X10*3/uL (1.2-4.9); Lymphocytes Percent Auto 28.1 % (20-40); Mean Corpuscular HGB Conc 32.3 g/dl (31.0-35.0); Mean Corpuscular Hemoglobin 29.5 pg (27.0-33.0); Mean Corpuscular Volume 91.2 fL (80.0-98.0); Monocytes Absolute Auto 0.8 X10*3/uL (0.1-1.2); Neutrophils Absolute Auto 7.6 x10*3/uL (2.0-8.3); Platelet Count 162 X10*3/uL (160-400); Red Blood Count 4.55 X10*6/uL (4.20-5.50); Red Cell Distribution Width 14.2 % (11.0-16.0); White Blood Count 12.1 X10*3/uL (4.8-10.8)
[2023-11-27 12:48] LABS: Lactic Acid 10.7 mmol/L (0.5-2.0)
[2023-11-27 12:50] LABS: B Type Natriuretic Peptide 755 pg/mL (<100)
[2023-11-27 13:03] LABS: INTERNATIONAL NORM RATIO 1.2 (0.9-1.1); Prothrombin Time 14.2 SEC (11.1-13.3)
[2023-11-27 13:08] LABS: Appearance Urine Cloudy; Color Urine Dark Yellow; Glucose Urine UA Negative (Negative); Leukocyte Esterase Urine Small (1+) (Negative); Nitrite Urine Negative (Negative); PH 5.5 (5.0-9.0); Specific Gravity - Urine 1.025 (1.005-1.025); UMIC TRIGGER UACC YES; Urine Blood Trace (Negative); Urine Ketones Negative (Negative); Urine Protein 300 (3+) mg/dL (Neg-Trace)
[2023-11-27 13:18] LABS: Amphetamine Screen Urine Not Detected (Not Detect); Barbiturates, Urine Not Detected (Not Detect); Benzodiazepines Screen Urine Not Detected (Not Detect); Buprenorphine Scr Not Detected (Not Detect); Cannabinoid Screen Urine Not Detected (Not Detect); Cocaine Screen Urine Not Detected (Not Detect); Fentanyl, urine Not Detected (Not Detect); Methadone Screen, Urine Not Detected (Not Detect); Opiate Screen Urine Not Detected (Not Detect); Oxycodone Screen Urine Not Detected (Not Detect); Phencyclidine Screen Urine Not Detected (Not Detect)
[2023-11-27] MEDS: vancomycin/NS 2,000 MG/500 ML PLAST..BAG 250 MG IV (13:19)
[2023-11-27] MEDS: Piperacillin Sodium/Tazobactam 4.5 GM in 0.9 % Sodium Chloride 100 ML IV (13:19)
[2023-11-27 13:29] LABS: Squamous Epithelial Cell Urine 0-2 /HPF (0-2); UACC Culture Trigger YES
[2023-11-27 13:30] LABS: Influenza A PCR NEGATIVE (Negative); Influenza B PCR NEGATIVE (Negative); Resp Syncy Virus RNA Qual PCR NEGATIVE (Negative); SARS COV2 PCR INHOUSE NEGATIVE (Negative)
[2023-11-27 13:30] LABS: Bacteria Urine None Seen (None Seen)
[2023-11-27 14:27] LABS: Reflex Lactate? Lactic Acid Added
[2023-11-27 15:12] LABS: Alanine Aminotransferase 299 U/L (0-31); Albumin Level 3.3 g/dL (3.5-5.0); Alkaline Phosphatase 158 U/L (39-117); Anion Gap 22 (12-20); Aspartate Amino Transferase 176 U/L (5-31); Bilirubin Direct 0.5 mg/dL (0.0-0.5); Blood Urea Nitrogen 20 mg/dL (9-16); C Reactive Protein 0.32 mg/dL (< or = 0.50); Calcium 8.3 mg/dL (8.4-10.2); Carbon Dioxide 13 mmol/L (22-29); Chloride 116 mmol/L (96-108); Creatinine Clr Calc Pharmacy 46.9; Estimated Glomerular Filt Rate 52; Ethanol < 10 mg/dL; Glucose Random 191 mg/dL (60-115); Lipase 36 U/L (8-78); Magnesium 2.2 mg/dL (1.6-2.6); Potassium 3.3 mmol/L (3.3-5.1); Sodium 148 mmol/L (135-145); Total Protein 5.7 g/dL (6.5-8.0)
--- NOTE | 2023-11-27 15:30 | MHC.EDTECH ---
this tech took over care at this time, upon rounding on pt the family requested a cup of ice, pt appears to be in no apparent distress
--- NOTE | 2023-11-27 16:36 | CA_ITS ---
Transthoracic Echocardiogram Patient (Last, First, Middle): Giana Appiah, Gender: Female Date of : 1945 Age: 78 Procedure Date: 11/27/2023 Procedure Type: Transthoracic Echocardiogram Location: ER Height: 160.02 cm Weight: 81.19 kg BSA: 1.84 m2 Heart Rate: bpm BP: 99 / 57 mmHg Office Clerk Assistant: ARNALDO Referring MD: Wei Best MD Clothespin Machine Operator: Gonzales William MD Symptoms: hypotension, elevated troponin Study Quality: Adequate ECG Rhythm: Sinus tachycardia Conclusions: - 1. Findings suggestive of acute cor pulmonale 2. Normal LV ejection fraction 60-65% with impaired relaxation filling pattern 3. Moderate tricuspid regurgitation 4. Moderately elevated right ventricular systolic pressure with significantly elevated right atrial pressures 5. Upper limits of normal ascending aortic size 6. No gross pericardial effusion Findings Left Ventricle Normal left ventricular size and systolic function. There is mildly increased left ventricular wall thickness. The visually estimated ejection fraction is between 60-65%. There is a flattened septum in systole consistent with right ventricular pressure overload. Spectral Doppler is indicative of an impaired relaxation filling pattern. E/E prime ratio is between 8 and 15 consistent with indeterminate filling pressures. Right Ventricle Moderately increased right ventricular cavity size. There is severely decreased right ventricular systolic function. The right ventricular free wall is akinetic, the lateral wall is hypokinetic, and the apex is normal. Overall findings suggestive of acute cor pulmonale with positive Cifuentes sign Atria The left atrium is normal in size. There is no evidence of interatrial shunt. The right atrium is moderately dilated. Aortic Valve Normal aortic valve structure and function. There is no aortic valve stenosis. There is no aortic valve regurgitation. Mitral Valve Normal mitral valve structure and function. There is trace mitral valve regurgitation. There is no mitral valve stenosis. Pulmonic Valve The pulmonic valve is likely normal. There is trace to mild pulmonic valve regurgitation. Tricuspid Valve Normal tricuspid valve structure. There is moderate tricuspid valve regurgitation. Significantly elevated right atrial pressure. Moderate pulmonary hypertension is present. Great Vessels The pulmonary artery was not well visualized. There is no evidence of plaque in the aorta. Venous The inferior vena cava is moderately dilated and does not collapse with inspiration. Pericardium/Pleural There is no evidence of pericardial effusion. Prior Study Comparison No prior study available for comparison. Measurements 2D Linear Measurements IVSd: 1.48 0.6-0.9/0.6-1.0 cm LVIDd: 2.47 3.9-5.3/4.2-5.9 cm LVIDd Index: 1.34 2.4-3.2/2.2-3.1 cm/m2 LVIDs: 1.68 2.0-3.6 cm LVPWd: 1.16 0.7-1.1 cm LA Diam: 1.90 2.7-3.8/3.0-4.0 cm LAIDs Index: 1.03 1.5-2.3 cm/m2 LV Mass: 123.10 67-162/88-224 g LV Mass Index: 66.90 43-95/49-115 g/m2 LVOT Diam: 1.80 3.0+(-)1.3 cm 2D Systolic Function EF 4C: 62.30 >55% EF 2C: 64.40 >55% EF BiP: 60.70 >55% Mitral Valve MV Pk E: 0.65 MV PK A: 0.79 MV Decel Time: 254.00 E/A: 0.80 E'Lateral: 6.74 E'Medial: 5.98 E/E' Med: 10.80 E/E' Lat: 9.60 PHT: 74.00 MVA PHT: 2.97 Decel [place]: 2.53 Aortic Valve AoV Pk Forrest: 1.45 AoV Mn Forrest: 0.94 AoV VTI: 0.19 AoV Pk Grad: 8.00 Aov Mn Grad: 4.00 ARRON Cont.VTI: 1.99 LVOT LVOT Pk Forrest: 1.27 LVOT Mn Forrest: 0.68 LVOT VTI: 0.15 LVOT Pk Grad: 6.00 LVOT Mn Grad: 2.00 LVOT Diam: 1.80 LVOT Area: 2.54 Diastolic Function MV Pk E: 0.65 MV Pk A: 0.79 E/A: 0.80 E'Medial: 5.98 E/E' Med: 10.80 E' Laterial: 6.74 E/E' Lat: 9.60 Right Ventricle TAPSE (mm): 7.87 TVS' Forrest: 6.42 Tricuspid Valve TR Pk Forrest: 3.11 TR Pk Grad: 39.00 RA Press: 15.00 RVSP: 54.00 Great Vessels Aorta Sinus of Valsalva: 3.14 2.0-3.[address] [place]: 2.44 1.7-3.4 cm Ao Asc: 3.60 2.1-3.4 cm Updated in Other Vendor System with Status of Final Gonzales William MD electronically signed on 11/28/2023 8:44:49 AM with status of Final
--- NOTE | 2023-11-27 16:41 | PM.CNCAR ---
History of Present Illness History of Present Illness Date of Service: 11/27/23 Requesting physician: Wei Best Consult reason: hypotension and troponin elevation Chief complaint: LETHARGY,? GABAPENTIN,NARCAN GIVEN BY [facility] PER EMS Narrative: I was consulted to see carbonate in cardiology consultation today for elevated troponins and hypotension. History was obtained from the patient as well as patient's son and [id number] who were present at bedside. Patient understands Persian and gave appropriate responses. Patient was brought to the hospital after a syncopal event at her primary care physician's office. Patient has prior history of diabetes, hyperlipidemia, hypertension. About 3 weeks ago she had a dental extraction which was then complicated by severe pain suspected to be trigeminal neuralgia. As per her and her son and [id number] she has had very poor oral intake for the last 3 weeks. She has been having symptoms of dizziness over the last week to 10 days where she would change position. She was started on gabapentin for her trigeminal neuralgia sounding pain and has been referred to a facial surgeon although this has not happened. Patient went to see a physician today and she passed out and was sent to the emergency room. In the emergency room when she arrived she was pretty hypotensive and lethargic with initial blood pressure 78 systolic. Her lactic acid was significantly elevated at 10.7. There was difficulty in finding her IVs. However since then she has received about 2 L of fluids. Blood work also revealed elevated troponin of 1746 as well as BNP elevated at 755. Creatinine within normal limits. Her liver enzymes elevated as well. She denies any chest pain or shortness of breath of recent onset. The no episodes of hypoxemia noted in the ED. blood pressures improved although intermittently blood pressure shows lower blood pressure readings. Remains tachycardic with sinus tachycardia. EKG showed nonspecific ST T wave changes. Review of Systems Constitutional: Constitutional: Reports lethargy, Reports poor appetite and Reports weakness Eyes: Eyes: Reports no additional eye complaints ENT: Reports mouth pain Cardiovascular: Cardiovascular: Denies chest pain, Denies leg edema, Reports lightheadedness, Reports Loss of Consciousness, Denies palpitations and Denies dyspnea Respiratory: Respiratory: Reports no additional respiratory complaints and Denies dyspnea Gastrointestinal: Gastrointestinal: Reports no additional gastrointestinal complaints Genitourinary: Genitourinary: Reports no additional female genitourinary complaints Neurologic: Reports system reviewed and no additional complaints, except as documented and Reports weakness Endocrine: Endocrine: Denies palpitations PMFSH Past Medical History Medical History Generalized degenerative joint disease of hand Arthritis Hx of transfusion of packed red blood cells Depression Diabetes Elevated cholesterol HTN (hypertension) Surgical History Surgical History Hx of shoulder surgery Hx of varicose vein ligation History of evacuation of hematoma History of carpal tunnel release History of total bilateral knee replacement H/O colonoscopy Social History Social History Alcohol intake: never Comment: counts correct Patient Tobacco Use Status: Never used Tobacco Smoked in Last 30 Days: No Use of substances other than those prescribed or required for medical reasons: No Advance Directives: No Advance Directives Information Provided: No Meds Allergies Allergy/AdvReac Type Severity Reaction Status Date / Time codeine [Codeine] Allergy Mild RASH Verified 11/27/23 11:43 meperidine [From Demerol] Allergy Mild RASH Verified 11/16/23 15:17 Active Medications: Current Medications Lactated Ringer's (Lr) 1,000 mls @ 999 mls/hr IV .Q1H1M HEMA Stop: 11/27/23 17:45 Home Medications ?Medication ?Instructions ?Recorded ?Confirmed ?Last Taken ?Type amlodipine 2.5 mg tablet 2.5 mg PO DAILY 09/06/20 09/05/23 09/12/20 07:15 History 2.5mg atorvastatin 80 mg tablet 80 mg PO BEDTIME 09/06/20 09/05/23 Unknown History hydrochlorothiazide 25 mg tablet 25 mg PO DAILY 09/06/20 09/05/23 Unknown History metformin 500 mg tablet,extended 500 mg PO DAILY 09/06/20 09/05/23 Unknown History release 24 hr jxzbzhtauasa-skvfwbvl-whqjzx 1 tab PO DAILY 09/06/20 09/05/23 Unknown History tablet (Cerovite Senior) venlafaxine 75 mg capsule,extended 75 mg PO QAM 09/06/20 09/05/23 09/12/20 07:15 History release 24 hr 75 mg Physical Exam Vital Signs: Vital Signs: Last Vital Signs Temp 97.4 F 11/27/23 16:09 Pulse 107 H 11/27/23 16:09 Resp 20 11/27/23 16:09 BP 99/57 L 11/27/23 16:09 Pulse Ox 95 11/27/23 16:09 O2 Del Method Room Air 11/27/23 16:09 BMI result Body Mass Index 31.8 Const: General: cooperative, comfortable, no acute distress, alert, awake and Physically active Nutritional Appearance: obese Orientation/consciousness: patient oriented x3 HEENT: Head: Yes normocephalic and Yes atraumatic Neck: Neck: Yes trachea midline, Yes supple and Yes no JVD Resp: Effort & Inspection: normal respiratory effort Auscultation: clear to auscultation bilaterally Cardio: Jugular venous distension: no JVD Palpation: normal PMI Rate: tachycardic Rhythm: regular rhythm Heart sounds: S1 normal heart sound present, S2 normal heart sound present, no click, no gallops, no murmurs and no rubs GI: Inspection: Yes obesity Auscultation: normal bowel sounds Skin: General skin exam: no rashes or lesions noted Neuro: General: patient oriented x3 and no focal motor deficits Extrem: General: Yes no clubbing, cyanosis or edema Objective Labs and Meds 11/27/23 12:20 11/27/23 14:47 Lab results: Laboratory Results - last 24 hr 11/27/23 11/27/23 11/27/23 11:55 12:20 12:21 WBC 12.1 H RBC 4.55 Hgb 13.4 Hct 41.5 MCV 91.2 MCH 29.5 MCHC 32.3 RDW 14.2 Plt Count 162 D MPV 12.0 Immature Gran % (Auto) 1.7 H Neut % (Auto) 63.0 Lymph % (Auto) 28.1 [place] % (Auto) 7.0 Eos % (Auto) 0.1 Baso % (Auto) 0.1 Lymph # (Auto) 3.4 [place] # (Auto) 0.8 Eos # (Auto) 0.0 Baso # (Auto) 0.0 Abs Immat Gran (auto) 0.20 H Absolute Neuts (auto) 7.6 Absolute Nucleated RBC 0.000 Nucleated RBC % (auto) 0.0 PT INR VBG pH VBG pCO2 VBG pO2 VBG HCO3 VBG O2 Saturation VBG Base Excess Sodium Potassium Chloride Carbon Dioxide Anion Gap BUN Creatinine Estim Creat Clear Calc Estimated GFR POC Glucose 206 H Random Glucose Lactic Acid 10.7 H* Calcium Magnesium Total Bilirubin Direct Bilirubin AST ALT Alkaline Phosphatase Troponin I High Sens C-Reactive Protein B-Natriuretic Peptide 755 H Total Protein Albumin Lipase Urine Color Urine Appearance Urine pH Ur Specific [place] Urine Protein Urine Glucose (UA) Urine Ketones Urine Blood Urine Nitrite Ur Leukocyte Esterase Urine RBC Urine WBC Ur Squamous Epith Cells Urine Bacteria Hyaline Casts Urine Opiates Screen Ur Buprenorphine Scrn Ur Oxycodone Screen Urine Methadone Screen Urine Fentanyl Screen Ur Barbiturates Screen Ur Phencyclidine Scrn Ur Amphetamines Screen U Benzodiazepines Scrn Urine Cocaine Screen U Marijuana (THC) Screen Ethyl Alcohol Influenza Type A (PCR) NEGATIVE Influenza Type B (PCR) NEGATIVE RSV RNA Qual (PCR) NEGATIVE SARS-CoV-2 RNA (RT-PCR) NEGATIVE 11/27/23 11/27/23 11/27/23 12:23 12:38 12:59 WBC RBC Hgb Hct MCV MCH MCHC RDW Plt Count MPV Immature Gran % (Auto) Neut % (Auto) Lymph % (Auto) [place] % (Auto) Eos % (Auto) Baso % (Auto) Lymph # (Auto) [place] # (Auto) Eos # (Auto) Baso # (Auto) Abs Immat Gran (auto) Absolute Neuts (auto) Absolute Nucleated RBC Nucleated RBC % (auto) PT 14.2 H INR 1.2 H VBG pH 7.28 L VBG pCO2 32 VBG pO2 31 VBG HCO3 15 L VBG O2 Saturation 40.0 VBG Base Excess -9.9 Sodium Potassium Chloride Carbon Dioxide Anion Gap BUN Creatinine Estim Creat Clear Calc Estimated GFR POC Glucose Random Glucose Lactic Acid Calcium Magnesium Total Bilirubin Direct Bilirubin AST ALT Alkaline Phosphatase Troponin I High Sens C-Reactive Protein B-Natriuretic Peptide Total Protein Albumin Lipase Urine Color Dark Yellow Urine Appearance Cloudy Urine pH 5.5 Ur Specific [place] 1.025 Urine Protein 300 (3+) H Urine Glucose (UA) Negative Urine Ketones Negative Urine Blood Trace H Urine Nitrite Negative Ur Leukocyte Esterase Small (1+) H Urine RBC 3-5 H Urine WBC 11-20 H Ur Squamous Epith Cells 0-2 Urine Bacteria None Seen Hyaline Casts 11-20 Urine Opiates Screen Not Detected Ur Buprenorphine Scrn Not Detected Ur Oxycodone Screen Not Detected Urine Methadone Screen Not Detected Urine Fentanyl Screen Not Detected Ur Barbiturates Screen Not Detected Ur Phencyclidine Scrn Not Detected Ur Amphetamines Screen Not Detected U Benzodiazepines Scrn Not Detected Urine Cocaine Screen Not Detected U Marijuana (THC) Screen Not Detected Ethyl Alcohol Influenza Type A (PCR) Influenza Type B (PCR) RSV RNA Qual (PCR) SARS-CoV-2 RNA (RT-PCR) 11/27/23 11/27/23 14:47 14:47 WBC RBC Hgb Hct MCV MCH MCHC RDW Plt Count MPV Immature Gran % (Auto) Neut % (Auto) Lymph % (Auto) [place] % (Auto) Eos % (Auto) Baso % (Auto) Lymph # (Auto) [place] # (Auto) Eos # (Auto) Baso # (Auto) Abs Immat Gran (auto) Absolute Neuts (auto) Absolute Nucleated RBC Nucleated RBC % (auto) PT INR VBG pH VBG pCO2 VBG pO2 VBG HCO3 VBG O2 Saturation VBG Base Excess Sodium 148 H Potassium 3.3 Chloride 116 H Carbon Dioxide 13 L Anion Gap 22 H BUN 20 H Creatinine 1.03 Estim Creat Clear Calc 46.9 Estimated GFR 52 POC Glucose Random Glucose 191 H Lactic Acid Calcium 8.3 L D Magnesium 2.2 Total Bilirubin 1.0 Direct Bilirubin 0.5 AST 176 H ALT 299 H Alkaline Phosphatase 158 H Troponin I High Sens 1746.5 H* C-Reactive Protein 0.32 B-Natriuretic Peptide Total Protein 5.7 L Albumin 3.3 L Lipase 36 Urine Color Urine Appearance Urine pH Ur Specific [place] Urine Protein Urine Glucose (UA) Urine Ketones Urine Blood Urine Nitrite Ur Leukocyte Esterase Urine RBC Urine WBC Ur Squamous Epith Cells Urine Bacteria Hyaline Casts Urine Opiates Screen Ur Buprenorphine Scrn Ur Oxycodone Screen Urine Methadone Screen Urine Fentanyl Screen Ur Barbiturates Screen Ur Phencyclidine Scrn Ur Amphetamines Screen U Benzodiazepines Scrn Urine Cocaine Screen U Marijuana (THC) Screen Ethyl Alcohol < 10 Cancelled Influenza Type A (PCR) Influenza Type B (PCR) RSV RNA Qual (PCR) SARS-CoV-2 RNA (RT-PCR) Imaging Radiologist's impression: Impressions Chest X-Ray 11/27/23 13:09 IMPRESSION: No acute abnormality. Abdomen Ultrasound 11/27/23 15:59 IMPRESSION: No shadowing gallstones noted. Gallbladder wall thickening at 10 mm with fluid/edema in the gallbladder wall. There is pericholecystic fluid. Assessment and Plan (1) Hypotension: Status: Acute Profound hypotension causing syncope and hypoperfusion syndrome with significantly elevated lactic acid as well as causing secondary myocardial infarction, see below as well as elevated LFTs. Her creatinine does not appear to be significantly affected. She seems to have responded to IV fluids with 2 L of normal saline given to her and her blood pressure seems to have improved. She is maintaining well at this point time. Follow-up lactic acid level. Other potential etiologies include sepsis although there is no obvious source, white cell count is mildly elevated. Other possible etiology could be cardiogenic with possibility of stress-induced cardiomyopathy related to syncope. EKGs not suggestive of ST elevation or significant ischemia. However troponin significantly elevated. See below for management. I would continue to hydrate her aggressively. Follow closely for development of heart failure. Echocardiogram is going to be performed stat at bedside. (2) NSTEMI (non-ST elevated myocardial infarction): Status: Acute Non ST-elevation myocardial infarction most likely secondary to hypotension with hypoperfusion. Given her multiple risk factors as high likelihood of underlying obstructive coronary artery disease although I do not suspect that this is a primary acute coronary syndrome. Possibility of stress-induced cardiomyopathy related to syncope exist. Will check echocardiogram to further assess for the same. Would treat her with aspirin, statins as well as IV heparin. Continue trend troponins. Hold off on all other vaso active medications. Will follow with you Procedures Date of Service Date of Service: 11/27/23
[2023-11-27] MEDS: iohexoL 350 MG/ML 100 ML INFUS..BTL IV (18:27)
[2023-11-27 19:18] LABS: ~Lactic Acid-LAB USE ONLY 11.3 mmol/L (0.5-2.0)
[2023-11-27 19:33] LABS: PTT Heparin Drip 28.6 SEC (53-77.9)
[2023-11-27 19:35] LABS: Troponin-I High Sensitivity 2051.5 ng/L (<3.5-17.0)
[2023-11-27] MEDS: Heparin Sodium,Porcine 5,000 UNIT/ML VIAL 6500 UNIT IVPUSH (19:42)
[2023-11-27] MEDS: Heparin Sodium,Porcine/1/2NS 25,000 UNIT/250 ML IV.SOLN 11.4 UNIT IVCONT (19:49)
--- NOTE | 2023-11-27 19:57 | PC.NURSE ---
Pt aox4 resting at the bedside. Heparin drip started at 14u/kg/hr. Pt tolerating well. No bleeding noted. Pt denies pain. Next PTT HD lab to be drawn 11/28/2023 at 0200. Ordered placed in the MAR. Monitoring is ongoing. Pt is aware of plan of care.
[2023-11-27] MEDS: Tenecteplase 50 MG/10 ML KIT 25 MG IVPUSH (20:46)
[2023-11-27 21:03] LABS: Reflex Lactate? 2 Y
--- NOTE | 2023-11-27 21:04 | PM.CCN ---
Critical Care Event Note Summary Date of Service: 11/27/23 Code activated: No Narrative: This case had a high probability of a clinically significant, sudden, or life threatening deterioration of this patient's condition which required my full and direct attention, intervention and personal management. Critical Care Time (minutes): 20 Comment: Were kindly asked to see this patient in the emergency room for possible admission to the ICU, it is reported that the patient has large pulmonary emboli with right heart strain. The chart, labs, images were reviewed in detail. Patient seen in the emergency room, currently complaining of 6/10 chest pain in a diffuse manner under the rib cages and having some difficulty taking deep breaths. Upon talking to family members, it is reported that the patient suffered a syncopal episode at the doctor's office prior to coming to the emergency room, Narcan had been administered thinking that the patient was overdosing without any effect. The patient had been feeling sick for approximately 2 weeks due to trigeminal neuralgia intractable pain which has limited her ability to perform activities of daily living, she has been getting out of bed however has spent most of the time in bed over the last couple of weeks and overall only complaint of pain for which several medications were tried by her primary care without any effect. Upon evaluation, the patient has borderline blood pressures 98/74 after IVF, appears tachycardic in the 120s, RR 28; satting 94% on room air when taking deep breaths otherwise has splinting breathing. There is no reproducible chest pain on palpation. Echocardiogram done at bedside with Dr. Reyes, shows a very significant enlargement of the right atrium with anterior wall akinesis. Portal fullness is also noted. I have reviewed the CTA scan of the chest which is very impressive for multiple large pulmonary embolism, with a saddle emboli and right heart strain. In addition patient's labs are according to these in regards to an elevated troponin and elevated BNP. The case was reviewed in detail with my supervising physician Dr. Reyes; who also saw the patient, his input is also that patient has been hemodynamically unstable, having a saddle pulmonary emboli with right heart strain and akinesis of the right atrium, enlargement. At this point his recommendation is to transfer this patient to a primary facility where a thrombectomy can be done. We also recommend starting the patient on heparin as soon as possible. The above-mentioned decisions were discussed in detail with the ER physician Total critical care time spent with this patient 20 minutes.
--- NOTE | 2023-11-27 21:12 | PC.NURSE ---
Nurse to nurse report provided to Nadine DUMONT at [facility]. Pt being transferred and aware of plan of care.
--- NOTE | 2023-11-28 14:55 | ECG_ITS ---
Test Reason : CHEST PAIN Blood Pressure : / mmHG Vent. Rate : 109 BPM Atrial Rate : 109 BPM P-R Int : 144 ms QRS Dur : 078 ms QT Int : 346 ms P-R-T Axes : 073 -43 -11 degrees QTc Int : 465 ms Sinus tachycardia Left axis deviation Low voltage QRS Nonspecific ST and T wave abnormality Abnormal ECG When compared with ECG of 27-NOV-2023 12:40, No significant change was found Referred By: Generic ED Physician Electronically Signed By:CLINT CAUSEY MD
== END 2023-11-27 22:12 | disposition short-term general hospital (02) ==
PROVIDERS: Emergency Provider Emergency Medicine
DX: I21.4 Non-ST elevation (NSTEMI) myocardial infarction (principal); I26.99 Other pulmonary embolism without acute cor pulmonale; I95.9 Hypotension, unspecified; R00.0 Tachycardia, unspecified; R79.89 Other specified abnormal findings of blood chemistry; I51.7 Cardiomegaly; R10.11 Right upper quadrant pain; R55 Syncope and collapse; R42 Dizziness and giddiness; G50.0 Trigeminal neuralgia; K13.79 Other lesions of oral mucosa; E11.9 Type 2 diabetes mellitus without complications; E78.00 Pure hypercholesterolemia, unspecified; Z79.84 Long term (current) use of oral hypoglycemic drugs; Z79.02 Long term (current) use of antithrombotics/antiplatelets; Z79.899 Other long term (current) drug therapy; Z03.818 Encounter for observation for suspected exposure to other biological agents ruled out
CPT/HCPCS: 0241U; 71045; 71275; 76705; 80048; 80076; 80307; 81001; 82803; 82947; 83605; 83690; 83735; 83880; 84484; 85025; 85610; 85730; 86140; 87040; 87086; 93005; 93306; 96361; 96365; 96366; 96368; 96374; 96375; 99285; 99291; 99292; J1644; J2543; J3101; J3370; Q9967

== ENCOUNTER → 2023-11-27 12:00 | Outpatient (BNV) | payer OTHER, SELFPAY | PROVIDERS: Emergency Provider Emergency Medicine; Visit Provider Internal Medicine Cardiovascular Disease | DX: I36.1 Nonrheumatic tricuspid (valve) insufficiency (principal); I37.1 Nonrheumatic pulmonary valve insufficiency; R00.0 Tachycardia, unspecified; R94.31 Abnormal electrocardiogram [ECG] [EKG]; R53.1 Weakness | CPT/HCPCS: 93010; 93306; 99223 ==

== ENCOUNTER → 2023-11-27 12:00 | Outpatient (BNV) | payer OTHER, SELFPAY | PROVIDERS: Emergency Provider Emergency Medicine; Visit Provider Physician Assistant Medical | DX: I26.09 Other pulmonary embolism with acute cor pulmonale (principal) | CPT/HCPCS: 99285 ==

== ENCOUNTER → 2023-11-28 14:55 | Outpatient (BNV) | payer OTHER, SELFPAY | PROVIDERS: Emergency Provider Emergency Medicine; Visit Provider Internal Medicine Cardiovascular Disease | DX: R94.31 Abnormal electrocardiogram [ECG] [EKG] (principal) | CPT/HCPCS: 93010 ==

== ENCOUNTER 2023-12-26 08:17 | Outpatient (REF) | payer OTHER, SELFPAY ==
--- NOTE | ~2023-12-26 | MM_ITS ---
EXAMINATION: MM SCREENING DIGITAL BREAST TOMOSYNTHESIS, BILATERAL CLINICAL INFORMATION: Screening. Asymptomatic. COMPARISON: Mammography: This study is compared with prior exams dating back to 2009. TECHNIQUE: Digital breast tomosynthesis is performed in both the craniocaudal and mediolateral oblique views along with computer-aided detection (CAD). Synthesized 2D images are generated from the tomosynthesis. FINDINGS: There are scattered areas of fibroglandular density (ACR BI-RADS breast composition Category b). There are no significant masses, abnormal calcifications, or other abnormalities. Stable benign calcifications bilaterally. Unchanged benign-appearing left upper outer focal asymmetry. MM/MM tomosynthesis screening BI IMPRESSION: No mammographic evidence of malignancy. ASSESSMENT: BI-RADS BI-RADS 2 - Benign Findings RECOMMENDATION: Routine annual mammography screening. 1 year F/U This examination should not preclude the clinical evaluation of a suspicious palpable abnormality. This patient's information was entered into a reminder system with a target due date for their next mammogram. Electronically signed by: Cami Augustin MD 01/22/2024 01:11 PM EDT
== END 2023-12-26 08:18 | disposition home or self-care (01) ==
LOC: HO.MAMMO 08:17
PROVIDERS: PCP General Practice; Visit Provider General Practice
DX: Z12.31 Encounter for screening mammogram for malignant neoplasm of breast (principal)
CPT/HCPCS: 77063; 77067

== ENCOUNTER 2024-04-30 09:54 | Emergency (ER) | payer OTHER, SELFPAY ==
--- NOTE | ~2024-04-30 | CT_ITS ---
EXAMINATION: CT ANGIOGRAM CHEST CLINICAL INFORMATION: Chest pain radiating to the back. History of PE on anticoagulation therapy. COMPARISON: CT images chest dated November 27, 2023. TECHNIQUE: Multiple axial images were obtained through the chest after the administration of 70 mL of Omnipaque 350 intravenous contrast. Extensive vascular post-processing including two-dimensional and three-dimensional reformatted images were created and reviewed on an independent workstation. No reported immediate complications. SmartPrep technique. This CT examination was performed using dose optimization techniques as appropriate, variously including the following: *Automated exposure control *Adjustment of mA and/or kV according to patient size (this includes techniques or standardized protocols for targeted exams where dose is matched to indication/reason for exam; i.e. extremities or head) *Use of iterative reconstruction technique DLP: 300 mGy-cm FINDINGS: No intraluminal filling defects within the main pulmonary artery or its main branches. The thoracic aorta demonstrates normal patency caliber without intimal flap or IV contrast extravasation. Calcified plaques in the thoracic aortic arch and its main branches. No consolidation, pleural effusion or pneumothorax. Bilateral, less than 2 mm noncalcified pulmonary nodules in the periphery of the lungs and subpleural. The respiratory airways is patent. 1 cm nonspecific mediastinal lymph nodes. No pericardial effusion. No bronchiectasis. No honeycombing. Multilevel spondylosis in the axial skeleton without acute fracture or gross listhesis. Osteopenia versus osteoporosis. CT/CT angio chest aorta IMPRESSION: No acute pulmonary artery emboli. Resolved pulmonary artery emboli No dissection or aneurysm, thoracic aorta. Nonspecific subcentimeter less than 3 mm noncalcified pulmonary nodules. Fleischner guidelines were followed. Electronically signed by: Quinn Guzman MD 04/30/2024 02:31 PM JOSE
--- NOTE | ~2024-04-30 | XR_ITS ---
EXAMINATION: XR CHEST CLINICAL INFORMATION: sob COMPARISON: None available. TECHNIQUE: 2 views of the chest were obtained. FINDINGS: Lungs clear. No pleural effusions. Heart and pulmonary vessels normal. Postsurgical changes to the right clavicle noted. XR/XR chest 2V IMPRESSION: No active disease. Electronically signed by: Peter Mcadams MD 04/30/2024 10:53 AM JOSE
[2024-04-30 09:57] VITALS: BP 149/80; PULSE 95; RESP 22; TEMP 36.4; O2SAT 100; BMI 29.4
[2024-04-30 10:26] LABS: MANUAL DIFF FLAG NO
[2024-04-30 10:28] LABS: Basophils Percent Auto 0.4 % (0-2); Eosinophils Absolute Auto 0.2 X10*3/uL (0.0-0.4); Eosinophils Percent Auto 2.5 % (0-4); Hematocrit 39.5 % (37.0-47.0); Hemoglobin 13.4 g/dl (12.0-16.0); Imm Gran Abs Auto 0.02 X10*3/uL (0.00-0.03); Imm Gran Pct Auto 0.3 % (0.0-0.4); Lymphocytes Absolute Auto 2.1 X10*3/uL (1.2-4.9); Mean Corpuscular HGB Conc 33.9 g/dl (31.0-35.0); Mean Corpuscular Hemoglobin 29.7 pg (27.0-33.0); Mean Corpuscular Volume 87.6 fL (80.0-98.0); Mean Platelet Volume 10.9 fL (9.4-12.3); Monocytes Absolute Auto 0.5 X10*3/uL (0.1-1.2); Monocytes Percent Auto 7.4 % (2-11); Neutrophils Absolute Auto 4.1 x10*3/uL (2.0-8.3); Neutrophils Percent Auto 59.4 % (45-73); Platelet Count 322 X10*3/uL (160-400); Red Blood Count 4.51 X10*6/uL (4.20-5.50); Red Cell Distribution Width 13.2 % (11.0-16.0); White Blood Count 6.9 X10*3/uL (4.8-10.8)
[2024-04-30 10:40] LABS: D Dimer High Sensitivity 180 NG/ML
[2024-04-30 10:45] LABS: Alanine Aminotransferase 13 U/L (0-31); Albumin Level 4.2 g/dL (3.5-5.0); Alkaline Phosphatase 96 U/L (39-117); Anion Gap 15 (12-20); Aspartate Amino Transferase 19 U/L (5-31); Bilirubin Direct 0.3 mg/dL (0.0-0.5); Bilirubin Total 0.9 mg/dL (0.0-1.0); Blood Urea Nitrogen 13 mg/dL (9-16); Calcium 9.9 mg/dL (8.4-10.2); Carbon Dioxide 28 mmol/L (22-29); Chloride 105 mmol/L (96-108); Estimated Glomerular Filt Rate > 60; Glucose Random 118 mg/dL (60-115); Lipase 23 U/L (8-78); Potassium 3.5 mmol/L (3.3-5.1); Sodium 144 mmol/L (135-145); Total Protein 7.9 g/dL (6.5-8.0)
[2024-04-30 11:32] LABS: B Type Natriuretic Peptide 33 pg/mL (<100)
[2024-04-30 11:34] LABS: Magnesium 1.9 mg/dL (1.6-2.6); Troponin-I High Sensitivity 7.3 ng/L (<3.5-17.0)
--- NOTE | 2024-04-30 11:38 | ED_ITS ---
HPI - SOB/Dyspnea General Chief Complaint: Dyspnea Stated Complaint: SOB Time Seen by Provider: 04/30/24 11:01 Source: patient, RN notes reviewed and old records reviewed Mode of arrival: ambulatory History of Present Illness ED Provider: Melissa Harris PA-C HPI Narrative: 78-year-old female with a past medical history of arthritis, depression, diabetes, HTN, pulmonary embolism currently on Eliquis, presenting to the ED complaining of 3-4 days of chest tightness radiating to right back with associated SOB. Admits pain is intermittent, worse with deep breathing. Reports compliance with Eliquis, denies missing doses. Denies nausea, vomiting, fever, abdominal pain, pedal edema, calf tenderness, travel Related Data Home Medications ?Medication ?Instructions ?Recorded ?Confirmed amlodipine 2.5 mg tablet 2.5 mg PO DAILY 09/06/20 09/05/23 atorvastatin 80 mg tablet 80 mg PO BEDTIME 09/06/20 09/05/23 hydrochlorothiazide 25 mg tablet 25 mg PO DAILY 09/06/20 09/05/23 metformin 500 mg tablet,extended 500 mg PO DAILY 09/06/20 09/05/23 release 24 hr rdnzmpyslfkq-sibzamzl-mzakir 1 tab PO DAILY 09/06/20 09/05/23 tablet (Cerovite Senior) venlafaxine 75 mg capsule,extended 75 mg PO QAM 09/06/20 09/05/23 release 24 hr Previous Rx's ?Medication ?Instructions ?Recorded amoxicillin 875 mg-potassium 1 tab PO BID 7 days #13 tabs 11/16/23 clavulanate 125 mg tablet prednisone 10 mg tablet See Rx Instructions .Route 11/16/23 .COMPLEX #64 tabs valacyclovir 1 gram tablet 1,000 mg PO TID 7 days #21 tabs 11/16/23 Allergies Allergy/AdvReac Type Severity Reaction Status Date / Time codeine [Codeine] Allergy Mild RASH Verified 04/30/24 10:03 meperidine [From Demerol] Allergy Mild RASH Verified 04/30/24 10:03 Review of Systems 2 Review of Systems: Yes all other systems are reviewed and are negative Constitutional: Constitutional: Reports as per HPI [facility] Past Medical History Attestation statement: The following information was validated with the patient. Source: old records reviewed Medical History Generalized degenerative joint disease of hand Arthritis Hx of transfusion of packed red blood cells Depression Diabetes Elevated cholesterol HTN (hypertension) Surgical History Hx of shoulder surgery Hx of varicose vein ligation History of evacuation of hematoma History of carpal tunnel release History of total bilateral knee replacement H/O colonoscopy Social History Social History Alcohol intake: never Comment: counts correct Patient Tobacco Use Status: Never used Tobacco Advance Directives: No Advance Directives Information Provided: Yes Do you have a plan to hurt others: No Plan Physical Exam 2 Vital Signs: Vital Signs: Last Vital Signs Temp 97.6 F 04/30/24 09:57 Pulse 95 04/30/24 09:57 Resp 22 H 04/30/24 09:57 BP 149/80 H 04/30/24 09:57 Pulse Ox 100 04/30/24 09:57 O2 Del Method Room Air 04/30/24 09:57 BMI result Body Mass Index 29.4 Const: General: cooperative, healthy appearing and no acute distress O rientation/consciousness: patient oriented x3 Limitations: no limitations HEENT: Head: Yes normal to inspection and Yes atraumatic Ears: hearing grossly normal bilaterally General nose exam: Normal external nose present Face and sinus: Yes normal facial exam Eyes: General: appearance normal, both eyes and all related structures EOM: EOMs intact bilaterally Neck: Neck: Yes normal visual inspection and Yes no meningeal signs Resp: Effort & Inspection: normal respiratory effort and no respiratory distress Auscultation: clear to auscultation bilaterally, no crackles, no rales, no rhonchi and no wheezes Cardio: Rate: regular rate Heart sounds: S1 normal heart sound present and S2 normal heart sound present GI: Inspection: Yes normal to inspection Palpation (GI): Soft to palpation, nontender, no guarding and not rigid : General: Yes no CVA tenderness Back/Spine/Pelvis: Back: no CVA tenderness Skin: Rashes: no rashes Wounds: no wounds Neuro: General: patient oriented x3, tone normal and no meningeal signs C ranial nerves: Yes CN's II-XII intact bilaterally Gait exam (Neuro): Normal gait present Extrem: General: Yes normal to inspection, Yes no pedal edema and Yes no calf tenderness Course Course Course Narrative: -1149--no leukocytosis. D-dimer negative, PE unlikely -initial troponin 7.3 > will obtain 3 hour repeat. Labs otherwise reassuring XR chest 2V IMPRESSION: No active disease. -1441-troponin x2 without rise, mi unlikely CT angio chest aorta IMPRESSION: No acute pulmonary artery emboli. Resolved pulmonary artery emboli No dissection or aneurysm, thoracic aorta. Nonspecific subcentimeter less than 3 mm noncalcified pulmonary nodules. Fleischner guidelines were followed. -viral studies negative Results discussed with patient including worrisome signs and symptoms and strict return precautions, and when to return to the emergency department. They verbalized understanding and feel safe for discharge at this time. Medications Administered Discontinued Medications Generic Name Dose Route Start Last Admin Trade Name Freq PRN Reason Stop Dose Admin Iohexol 70 ml 04/30/24 12:25 04/30/24 12:25 Iohexol 350 Mg/Ml 75 Ml Infus..Btl IV 04/30/24 12:26 70 ml ONCE ONE Administration Medical Decision Making Medical Decision Making [facility] Narrative: 78-year-old female with a past medical history of arthritis, depression, diabetes, HTN, pulmonary embolism currently on Eliquis, presenting to the ED complaining of 3-4 days of chest tightness radiating to right back with associated SOB. On exam initially tachypneic, NAD, nontoxic appearing, lungs CTA, abdomen soft/nontender, no pedal edema. No rash. Concern for ACS vs dissection vs pulmonary embolism. Lower suspicion for cholecystitis/lithiasis or pancreatitis at this time without tenderness on exam. Plan: EKG, labs, CXR, CT chest/abdomen, re-evaluate Please refer to course for remaining clinical decision making, interpretation of labs/imaging results, and discussions with consultants and/or family members. Differential Diagnosis Differential Diagnoses: The differential diagnosis associated with the presentation includes As above Admission/Observation Consideration of admission/observation: Escalation of care including admission/observation considered Lab Data [facility] Lab Attestation statement: I reviewed the patient's lab results. 04/30/24 10:16 04/30/24 10:16 Labs: Lab Results 04/30/24 04/30/24 Range/Units 10:16 14:09 WBC 6.9 (4.8-10.8) X10*3/uL RBC 4.51 (4.20-5.50) X10*6/uL Hgb 13.4 (12.0-16.0) g/dl Hct 39.5 (37.0-47.0) % MCV 87.6 (80.0-98.0) fL MCH 29.7 (27.0-33.0) pg MCHC 33.9 (31.0-35.0) g/dl RDW 13.2 (11.0-16.0) % Plt Count 322 D (160-400) X10*3/uL MPV 10.9 (9.4-12.3) fL Immature Gran % (Auto) 0.3 (0.0-0.4) % Neut % (Auto) 59.4 (45-73) % Lymph % (Auto) 30.0 (20-40) % Bent % (Auto) 7.4 (2-11) % Eos % (Auto) 2.5 (0-4) % Baso % (Auto) 0.4 (0-2) % Lymph # (Auto) 2.1 (1.2-4.9) X10*3/uL Bent # (Auto) 0.5 (0.1-1.2) X10*3/uL Eos # (Auto) 0.2 (0.0-0.4) X10*3/uL Baso # (Auto) 0.0 (0.0-0.2) X10*3/uL Abs Immat Gran (auto) 0.02 (0.00-0.03) X10*3/uL Absolute Neuts (auto) 4.1 (2.0-8.3) x10*3/uL Absolute Nucleated RBC 0.000 (0.0-0.012) X10*3/uL Nucleated RBC % (auto) 0.0 (0.0-0.2) /100WBC D-Dimer High Sensitivty 180 NG/ML Sodium 144 (135-145) mmol/L Potassium 3.5 (3.3-5.1) mmol/L Chloride 105 (96-108) mmol/L Carbon Dioxide 28 (22-29) mmol/L Anion Gap 15 (12-20) BUN 13 (9-16) mg/dL Creatinine 0.68 (0.5-1.4) mg/dL Estim Creat Clear Calc 71.0 Estimated GFR > 60 Random Glucose 118 H (60-115) mg/dL Calcium 9.9 D (8.4-10.2) mg/dL Magnesium 1.9 (1.6-2.6) mg/dL Total Bilirubin 0.9 (0.0-1.0) mg/dL Direct Bilirubin 0.3 (0.0-0.5) mg/dL AST 19 (5-31) U/L ALT 13 (0-31) U/L Alkaline Phosphatase 96 (39-117) U/L Troponin I High Sens 7.3 D 8.6 (<3.5-17.0) ng/L B-Natriuretic Peptide 33 (<100) pg/mL Total Protein 7.9 (6.5-8.0) g/dL Albumin 4.2 (3.5-5.0) g/dL Lipase 23 (8-78) U/L Influenza Type A (PCR) NEGATIVE (Negative) Influenza Type B (PCR) NEGATIVE (Negative) RSV RNA Qual (PCR) NEGATIVE (Negative) SARS-CoV-2 RNA (RT-PCR) NEGATIVE (Negative) Independent Interpretation I performed an independent interpretation of an: EKG and CT Scan Radiology Impression Discussion of test interpretation with radiology: I have reviewed the radiologist's reading. External Record Review External record reviewed: Inpatient record, Office record, Outpatient record, Prior outpatient labs, Prior outpatient radiology, Primary care record and Outside ED record Tests considered The following testing was considered but not selected: As above Prescription Management I considered prescription management with: Pain Medication Chronic Conditions Patient?s care impacted by: Hypertension and Other (PE) Discharge Plan Discharge Clinical Impression: Shortness of breath, Chest tightness Patient Disposition: Home, Self-Care Instructions: Dyspnea (ED), Noncardiac Chest Pain (ED) Additional Instructions: Your blood work, x-ray, and CT scan are reassuring You need to have close follow-up with your primary care doctor as well as Cardiology. Please call to make an appointment. If her pain persists, worsens, changes, you constant or worsening chest pain/shortness of breath or fever return to the emergency department Prescriptions: No Action atorvastatin 80 mg tablet 80 mg PO BEDTIME venlafaxine 75 mg capsule,extended release 24hr 75 mg PO QAM amlodipine 2.5 mg tablet 2.5 mg PO DAILY hydrochlorothiazide 25 mg tablet 25 mg PO DAILY metformin 500 mg tablet extended release 24 hr 500 mg PO DAILY Cerovite Senior Tablet 1 tab PO DAILY prednisone 10 mg tablet See Rx Instructions .ROUTE .COMPLEX Qty: 64 0RF Rx Instructions: Take 60 mg (6 tablets) for 6 days (day 2-7) Take 50 mg (5 tablets) for 2 days (day 8-10) Take 40mg (4 tablets) for 2 days (day 11-13) Take 30mg (3 tablets) for 2 days (day 14-16) Take 20mg (2 tablets) for 2 days (day 17-19) valacyclovir 1 gram tablet 1,000 mg PO TID 7 Days Qty: 21 0RF amoxicillin-pot clavulanate 875-125 mg tablet 1 tab PO BID 7 Days Qty: 13 0RF Referrals: [facility] [Provider Group] Liz Cary MD [Primary Care Provider] - 3 days Print Language: Stateless
--- NOTE | 2024-04-30 11:47 | ECG_ITS ---
Test Reason : SOB Blood Pressure : / mmHG Vent. Rate : 068 BPM Atrial Rate : 068 BPM P-R Int : 154 ms QRS Dur : 084 ms QT Int : 406 ms P-R-T Axes : 035 -30 034 degrees QTc Int : 431 ms Normal sinus rhythm Left axis deviation Abnormal ECG When compared with ECG of 27-NOV-2023 18:25, Vent. rate has decreased BY 41 BPM Nonspecific T wave abnormality no longer evident in Anterior leads Referred By: Melissa Harris Electronically Signed By:LILIANA LEIVA
[2024-04-30] MEDS: iohexoL 350 MG/ML 75 ML INFUS..BTL 70 ML IV (12:25)
[2024-04-30 14:38] LABS: Troponin-I High Sensitivity 8.6 ng/L (<3.5-17.0)
[2024-04-30 15:02] LABS: Influenza A PCR NEGATIVE (Negative); Influenza B PCR NEGATIVE (Negative); Resp Syncy Virus RNA Qual PCR NEGATIVE (Negative); SARS COV2 PCR INHOUSE NEGATIVE (Negative)
[2024-04-30 15:15] VITALS: BP 142/77; PULSE 91; RESP 20; TEMP 36.6; O2SAT 99
== END 2024-04-30 15:19 | disposition home or self-care (01) ==
PROVIDERS: Physician Assistant; Physician Assistant Medical; Emergency Provider Emergency Medicine Emergency Medical Services; PCP General Practice
DX: R06.02 Shortness of breath (principal); R07.89 Other chest pain; Z03.818 Encounter for observation for suspected exposure to other biological agents ruled out; E11.9 Type 2 diabetes mellitus without complications; I10 Essential (primary) hypertension; E78.5 Hyperlipidemia, unspecified; Z86.711 Personal history of pulmonary embolism; Z79.01 Long term (current) use of anticoagulants; Z79.84 Long term (current) use of oral hypoglycemic drugs; Z79.02 Long term (current) use of antithrombotics/antiplatelets
CPT/HCPCS: 0241U; 36415; 71046; 71275; 80048; 80076; 83690; 83735; 83880; 84484; 85025; 85379; 93005; 99283; 99284; Q9967

== ENCOUNTER → 2024-04-30 11:38 | Outpatient (BNV) | payer OTHER, SELFPAY | PROVIDERS: Emergency Provider Emergency Medicine Emergency Medical Services; PCP General Practice; Visit Provider Radiology Diagnostic Radiology | DX: R91.1 Solitary pulmonary nodule (principal) | CPT/HCPCS: 71275 ==

== ENCOUNTER → 2024-04-30 11:47 | Outpatient (BNV) | payer OTHER, SELFPAY | PROVIDERS: Emergency Provider Emergency Medicine Emergency Medical Services; PCP General Practice; Visit Provider Internal Medicine | DX: R06.02 Shortness of breath (principal); R94.31 Abnormal electrocardiogram [ECG] [EKG] | CPT/HCPCS: 93010 ==

== ENCOUNTER 2024-06-04 13:46 | Outpatient (AMB) | payer OTHER, SELFPAY ==
[2024-06-04 13:55] VITALS: BP 130/60; PULSE 82; BMI 30.6
--- NOTE | 2024-06-04 13:55 | MHC.OFFVIS ---
Vital Signs 06/04/24 13:55 Height 5 ft 4 in Weight 178 lb 9.191 oz BMI 30.6 BP 130/60 Blood Pressure Location Lt brachial Position Sitting Pulse 82 Pulse Source Pulse Oximeter Intake Visit Reasons: [facility] [place] F/up Intake Note: [facility] [place] F/U Straw Hat Washer Operator Required: Yes Straw Hat Washer Operator Services: Straw Hat Washer Operator Present Straw Hat Washer Operator Name: Sebastien [id number] Accompanied by: Self / Same As Patient Allergies codeine [Codeine] Allergy (Mild, Verified 06/04/24 14:14) RASH meperidine [From Demerol] Allergy (Mild, Verified 06/04/24 14:14) RASH Medication List - Last Reconciled 06/04/24 by Emir Obregon NP amlodipine 2.5 mg PO DAILY atorvastatin 80 mg PO BEDTIME gabapentin 100 mg PO TID hydrochlorothiazide 25 mg PO DAILY metformin ER 500 mg PO DAILY aacrewfqsmpp-tfsycwmo-nhxmcf (Cerovite Senior) 1 tab PO DAILY HPI Comments Details: This is a 79-year-old female patient presenting for hospital discharge follow-up. Patient is Albanian-speaking and an oil pipe inspector helper was used throughout the visit. She has a history of diabetes, hypertension, and pulmonary embolism, for which she is on Eliquis. Patient reports ongoing chest tightness that can radiate into her back, along with the shortness of breath. She notes that these symptoms occur both with exertion as well as at rest. Workup in the ER including troponin, chest x-ray were negative and chest CT ruled out PE. The patient states that the chest tightness has significantly improved but still can occur with deep breathing. The shortness of breath remains ongoing. She denies any exertional chest pain, palpitations, dizziness, orthopnea, PND, leg edema, presyncope, or syncope. [facility] Medical History Generalized degenerative joint disease of hand Arthritis Hx of transfusion of packed red blood cells Depression Diabetes Elevated cholesterol HTN (hypertension) Surgical History Hx of shoulder surgery Hx of varicose vein ligation History of evacuation of hematoma History of carpal tunnel release History of total bilateral knee replacement H/O colonoscopy Family History Mother Ovarian cancer Father HTN (hypertension) Pacemaker Kidney malignancy Son Kidney malignancy Social History Alcohol intake: never Comment: counts correct Patient Tobacco Use Status: Never used Tobacco Review of Systems Const Denies chills, Denies fatigue, Denies fever(s), Denies weight gain and Denies weight loss ENT Denies dizziness Card Denies chest pain, Denies leg edema, Denies lightheadedness, Denies palpitations, Reports dyspnea, Denies dyspnea on exertion, Denies orthopnea and Denies other Resp Denies cough, Reports dyspnea and Denies dyspnea on exertion GI Denies hematochezia and Denies change in stool character Musc Denies abnormal gait, Denies muscle weakness, Denies numbness, Denies radiating pain into limb and Denies tingling Neuro Denies abnormal gait, Denies dizziness, Denies numbness and Denies tingling Endo Denies fatigue and Denies palpitations Physical Exam Vital Signs: Last Vital Signs Pulse 82 06/04/24 13:55 BP 130/60 06/04/24 13:55 BMI result Body Mass Index 30.6 Const General: cooperative, healthy appearing, comfortable and no acute distress Orientation/consciousness: patient oriented x3 HEENT Head: Yes normal to inspection Neck Neck: Yes normal visual inspection, Yes trachea midline and Yes supple Chest Chest palpation & inspection: normal inspection of the chest Resp Effort & Inspection: normal respiratory effort Auscultation: clear to auscultation bilaterally, no crackles, no rales, no rhonchi and no wheezes Cardio Jugular venous distension: no JVD Palpation: normal PMI Rate: regular rate Rhythm: regular rhythm Heart sounds: S1 normal heart sound present, S2 normal heart sound present, no click, no gallops, no murmurs and no rubs Peripheral pulses: Peripheral pulses 2+ throughout GI Inspection: Yes normal to inspection Palpation (GI): Soft to palpation Auscultation: normal bowel sounds Skin General skin exam: no rashes or lesions noted Neuro General: patient oriented x3 Extrem General: Yes normal to inspection, No no pedal edema and No calf tenderness Psych Appearance: grossly normal Mental Status: mental status grossly normal Speech and movement: Normal speech and movement present Assessment & Plan Assessment & Plan (1) Precordial chest pain: Code(s): R07.2 - Precordial pain Category: Medical (2) Dyspnea: Code(s): R06.00 - Dyspnea, unspecified Category: Medical (3) Hospital discharge follow-up: Code(s): Z09 - Encounter for follow-up examination after completed treatment for conditions other than malignant neoplasm Plan Patient's symptoms of chest tightness and shortness of breath are atypical in nature. However, to further evaluate, we will proceed with a complete workup, including a treadmill stress test and an echocardiogram. The patient's blood pressure is well-controlled today. Continue amlodipine and hydrochlorothiazide. Continue high-dose statin therapy. 04/30/24- patient's CT scan revealed a nonspecific 3 mm pulmonary nodule. We will reach out to the PCP to monitor this finding. Recommended a heart healthy diet, regular exercise, and weight loss. Patient will follow-up with the completion of test. In the interim, advised patient to seek ER care in case of exertional chest pain not relieved with care, shortness of breath, palpitations, dizziness, presyncope, or syncope. This note was generated using voice recognition software. While every effort has been made to ensure accuracy and proper saw man, there may be occasional errors that could affect the content or meaning of the described symptoms. Orders: Orders CA echo transthoracic complete Today R06.00 - Dyspnea, unspecified CA stress test Today R07.2 - Precordial pain Coding Level of Care Code Est Pt Level 4 (58091) Diagnoses Precordial chest pain R07.2 Dyspnea R06.00 Hospital discharge follow-up Z09 Time Spent (min) 31 Comment Time spent in reviewing the chart, test results, assessment, counseling and documentation.
== END 2024-06-04 14:27 | disposition home or self-care (01) ==
PROVIDERS: PCP General Practice
DX: R07.2 Precordial pain (principal); R06.00 Dyspnea, unspecified; Z09 Encounter for follow-up examination after completed treatment for conditions other than malignant neoplasm
CPT/HCPCS: 99214

== ENCOUNTER → 2024-06-04 13:46 | Outpatient (BNVA) | payer OTHER, SELFPAY | PROVIDERS: PCP General Practice | DX: I10 Essential (primary) hypertension (principal); R07.2 Precordial pain; R06.00 Dyspnea, unspecified; Z09 Encounter for follow-up examination after completed treatment for conditions other than malignant neoplasm; Z86.711 Personal history of pulmonary embolism; Z79.01 Long term (current) use of anticoagulants | CPT/HCPCS: 99212 ==

== ENCOUNTER → 2024-06-30 07:53 | Outpatient (REF) | payer OTHER, SELFPAY ==
--- OUTSIDE RECORDS SUMMARY | 2024-06-30 07:55 | XMS_ITS | Clinical Summary ---
[facility] Organization [facility] Address [address] [place] [address] Care Team Providers Care Representative Personal Service Name Role Phone Unavailable Primary Care Provider Unavailabl e Social History Tobacco Use Types Packs/Day Years Used Date Smoking Tobacco: Never Assessed Comments Unknown Sex and Gender Information Value Date Recorded Sex Assigned at Not on file Legal Sex Female 1:03 PM EST Gender Identity Not on file Sexual Orientation Not on file Plan of Treatment Health Maintenance Due Date Last Done Comments DTaP,Tdap,and Td Vaccines (1 - Tdap) 1966 Pneumococcal Vaccine: 50+ Ye ars (1 of 1 - PCV) 1997 Zoster Vaccines (1 of 2) 1997 Depression Screening 04/10/2022 Falls Risk Assessment 04/10/2022 Hepatitis C Screening 04/10/2022 Osteoporosis Screening (Bone Density Screening) 04/10/2022 Social Influencers of Health Screening 04/10/2022 RSV Immunization Patients 60 + Years Old (1 - 1-dose 75+ series) 2022 COVID-19 Vaccine ( - 2023-2 5 season) 2024 Influenza Vaccine (#1) 2024 HIB Vaccines Aged Out No longer eligi ble based on patient's age to complete this topic HPV Vaccines Aged Out No longer eligi ble based on patient's age to complete this topic Hepatitis A Vaccines Aged Out No long er eligible based on patient's age to complete this topic Hepatitis B Vaccines Aged Out No long er eligible based on patient's age to complete this topic IPV Vaccines Aged Out No longer eligi ble based on patient's age to complete this topic MMR Vaccines Aged Out No longer eligi ble based on patient's age to complete this topic Meningococcal ACWY Vaccine Aged Out N o longer eligible based on patient's age to complete this topic Meningococcal B Vacine Aged Out No lo nger eligible based on patient's age to complete this topic RSV Immunization Patients Un osmin 20 months Aged Out No longer eligible b ased on patient's age to complete this topic Varicella Vaccines Aged Out No longer eligible based on patient's age to complete this topic
--- OUTSIDE RECORDS SUMMARY | 2024-06-30 07:55 | XMS_ITS | Encounter Summary ---
Author Organization [facility], Address [address] [place] [address] Phone Care Team Providers Care Produce Department Supervisor Name Role Phone Missy Severino NP Primary Care Provider [phone] Encounter Details Date Type Department Care Team (Late st Contact Info) Description 07/25/2021 Documentation Only [facility], [address] [place] [address] Miah Guzman MD [address] [place] [address] Social History Tobacco Use Types Packs/Day Years Used Date Smoking Tobacco: Never Alcohol Use Standard Drinks/Week Comments No 0 (1 standard drink = 0.6 oz pur e alcohol) Comments Unknown Sex and Gender Information Value Date Recorded Sex Assigned at Not on file Legal Sex Female 4:36 PM EST Gender Identity Not on file Sexual Orientation Not on file documented as of this encounter Plan of Treatment Not on file documented as of this encounter Visit Diagnoses Not on filedocumented in this encounter Care Teams Produce Department Supervisor Relationship Specialty Start Date End Date Missy Severino NP PCP - General 03/17/19 documented as of this encounter
--- OUTSIDE RECORDS SUMMARY | 2024-06-30 07:55 | XMS_ITS | Clinical Summary ---
Author Organization [facility], Address [address] [place] [address] [place] [address] Phone Care Team Providers Care Lawyer Real Estate Name Role Phone Missy Severino NP Primary Care Provider [phone] Allergies Active Allergy Reactions Criticality Noted Date Comments Codeine Other (see comments) 07/25/2021 Meperidine Other (see comments) 07/25/2021 Medications venlafaxine XR (EFFEXOR-XR) 75 MG 24 hr capsule Comments: Filled Date: Nov 27 2016 12:00AM Patient Notes: TOME LIZZ CAPSULA VIA ORAL CADA MANANA AT THE SAME TIME EACH DAY WITH F OOD Duration: 7 Active simethicone (Mi-Acid Gas Relief) 80 MG chewable tablet Comments: Filled Date: Dec 03 2016 12:00AM Patient Notes: MASTIQUE Y TRAGUE LIZZ TABLETA VIA ORAL CUATRO VECES AL SERINA JASIEL SEA N ECESARIO Duration: 7 Active metFORMIN XR (GLUCOPHATE-XR) 500 MG 24 hr tablet Comments: Filled Date: Nov 25 2016 12:00AM Patient Notes: TAKE ONE TABLET BY MOUTH EVERY DAY (AT DINNER) Duration: 6 Active atorvastatin (LIPITOR) 80 MG tablet Comments: Filled Date: Dec 10 2016 12:00AM Patient Notes: TOME LIZZ TABLETA VIA ORAL CADA SERINA AL ACOSTARSE Duration: 6 Active amLODIPine (NORVASC) 2.5 MG tablet Take 1 tablet (2.5 mg total) by mouth 1 (one) time each day 90 tablet 3 1 Active Pain Relief Extra Strength 500 MG tablet TAKE 1-2 TABLETS BY MOUTH 3 TIMES A DAY NEEDED. MAXIMUM OF 6 TABLETS /PER 24 HOURS 1 Active docusate sodium (COLACE) 100 MG capsule 1 Active FREESTYLE LITE test strip CHECK BY FINGER STICK EVERYDAY 1 Active hydroCHLOROthia zide 25 MG tablet TOME LIZZ TABLETA VIA ORAL CADA SERINA 1 Active Lancets (freestyle) lancets CHECK BY FINGERSTICK ROUTE EVERY DAY 1 Active Multiple Vitamins-Minera ls (Cerovite Senior) tablet TOME LIZZ TABLETA VIA ORAL CADA SERINA 1 Active Active Problems Problem Noted Date Diagnosed Date Hypertensive heart disease without congestive he art failure 11/10/2020 Renal disorder due to type 2 diabetes mellitus 0 01/27/2020 Hypertensive disorder 01/27/2020 Hyperlipidemia 01/27/2020 Chronic kidney disease stage 2 01/27/2020 Immunizations Name Administration Dates Next Due Influenza Split High Dose Preservative Free IM 1 Influenza, Unspecified 06/11/2017 Pneumococcal Polysaccharide 02/27/2015 Pneumococcal, Unspecified 06/11/2017 Zoster 11/02/2018 Family History Medical History Relation Comments Kidney disease Child son Relation Status Comments Child Father Unknown Mother Unknown Social History Tobacco Use Types Packs/Day Years Used Date Smoking Tobacco: Never Alcohol Use Standard Drinks/Week Comments No 0 (1 standard drink = 0.6 oz pur e alcohol) Comments Unknown Sex and Gender Information Value Date Recorded Sex Assigned at Not on file Legal Sex Female 4:36 PM EST Gender Identity Not on file Sexual Orientation Not on file Last Filed Vital Signs Vital Sign Reading Time Taken Comments Blood Pressure 140/80 07/25/2021 2:45 PM EDT Pulse 100 07/25/2021 2:45 PM EDT Temperature - - Respiratory Rate - - Oxygen Saturation - - Inhaled Oxygen Concentration - - Weight 86.2 kg (190 lb) 09/29/2018 12:00 PM EDT Height 157.5 cm (5' 2 ) 09/29/2018 12:00 PM EDT Body Mass Index 34.75 09/29/2018 12:00 PM EDT Plan of Treatment Health Maintenance Due Date Last Done Comments Pneumococcal Vaccine: 65+ Years (2 of 2 - PCV) 06/11/2018 06/11/2017, 02/27/2015 Diabetes: Hemoglobin A1C 08/03/2019 Diabetes: Ophthalmology Exam 08/03/2019 Diabetes: Pedal Pulse Checked 08/03/2019 Diabetes: Sensory Foot Exam 08/03/2019 Diabetes: Visual Foot Exam 08/03/2019 Influenza Vaccine (#1) 2024 8, 02/27/2015 Hepatitis B Vaccine Aged Out No longe r eligible based on patient's age to complete this topic Insurance [facility] DUAL SNP ([id number]) Care Teams Lawyer Real Estate Relationship Specialty Start Date End Date Missy Severino NP PCP - General 03/17/19
--- NOTE | 2024-06-30 07:57 | CA_ITS ---
Acquisition Time: 2024-06-30 08:55:08 Total Exercise Time: 00:04:33 Test Indications: CHEST PAIN Medications: AMLODIPINE ATROVASDTATIN METFORMIN Protocol: GABRIELA Max HR: 157 BPM 109% of Pred: 143 BPM Max BP: 148/68 mmHG Max Work Load: 4.6 METS Exercise Stress Test with exercise 4 mins 33 secs of Gabriela Protocol, held at Stage 1, achieving 108% MPHR, with reports of mild SOB, no chest discomfort, with isolated PVC and one ventricular triplet, with normotensive response to exercise. Without EKG changes meeting criteria for ischemia. In recovery, breathing returned to baseline. Test reviewed with Dr. Hackett. Referred By: Emir Obregon Electronically Signed By: Emir Obregon
--- NOTE | 2024-06-30 07:57 | CA_ITS ---
Transthoracic Echocardiogram Patient (Last, First, Middle): Giana Appiah, Gender: Female Date of : 1945 Age: 79 Procedure Date: 06/30/2024 Procedure Type: Transthoracic Echocardiogram Location: OP Height: 162.56 cm Weight: 79.83 kg BSA: 1.85 m2 Heart Rate: bpm BP: 124 / 80 mmHg Program Supervisor: Referring MD: Emir Obregon TRAM DRIVER Symptoms: R06.00 - Dyspnea, unspecified Study Quality: Good ECG Rhythm: Sinus Conclusions: - The left ventricular systolic function is normal. The calculated ejection fraction is 69% by biplane method. - No obvious valvular pathology seen on this study. Findings Left Ventricle Normal left ventricular cavity size. There is mildly increased left ventricular wall thickness. The left ventricular systolic function is normal. The calculated ejection fraction is 69% by biplane method. There is no evidence of regional wall motion abnormalities. Evidence suggests grade I (mild) diastolic dysfunction. Right Ventricle Normal right ventricular cavity size and systolic function. Atria Both atria are normal in size. Aortic Valve The aortic valve structure and function is likely normal. There is no aortic valve stenosis. There is no aortic valve regurgitation. Mitral Valve There is mild mitral annular calcification. There is trace mitral valve regurgitation. There is no mitral valve stenosis. Pulmonic Valve The pulmonic valve is likely normal. Tricuspid Valve There is mild tricuspid valve regurgitation. There is no evidence of pulmonary hypertension. Great Vessels The asc aorta is normal in size. Venous The inferior vena cava is normal in size and collapses greater than 50% with inspiration. Pericardium/Pleural There is no evidence of pericardial effusion. Prior Study Comparison Changes noted compared to prior study dated: 11/27/2023. Improvement in RV size and systolic function. tricuspid regurgitation, pulmonary hypertension. Recommendations, Care & Conclusions No obvious valvular pathology seen on this study. Measurements 2D Linear Measurements IVSd: 1.20 0.6-0.9/0.6-1.0 cm LVIDd: 3.82 3.9-5.3/4.2-5.9 cm LVIDd Index: 2.06 2.4-3.2/2.2-3.1 cm/m2 LVIDs: 2.27 2.0-3.6 cm LVPWd: 1.21 0.7-1.1 cm Ao Root: 3.10 2.1-3.5 cm LA Diam: 3.50 2.7-3.8/3.0-4.0 cm LAIDs Index: 1.89 1.5-2.3 cm/m2 LV Mass: 193.50 67-162/88-224 g LV Mass Index: 104.60 43-95/49-115 g/m2 LVOT Diam: 2.10 3.0+(-)1.3 cm 2D Systolic Function EF 4C: 75.00 >55% EF 2C: 60.60 >55% EF BiP: 69.40 >55% Mitral Valve MV Pk E: 0.58 MV PK A: 0.98 MV Decel Time: 221.00 E/A: 0.60 E'Lateral: 3.81 E'Medial: 4.79 E/E' Med: 12.20 E/E' Lat: 15.30 PHT: 65.00 MVA PHT: 3.38 Decel Mathews: 2.64 Aortic Valve AoV Pk Forrest: 1.71 AoV Mn Forrest: 1.08 AoV VTI: 0.35 AoV Pk Grad: 12.00 Aov Mn Grad: 6.00 ARRON Cont.VTI: 2.74 LVOT LVOT Pk Forrest: 1.08 LVOT Mn Forrest: 0.65 LVOT VTI: 0.27 LVOT Pk Grad: 5.00 LVOT Mn Grad: 2.00 LVOT Diam: 2.10 LVOT Area: 3.46 Diastolic Function MV Pk E: 0.58 MV Pk A: 0.98 E/A: 0.60 E'Medial: 4.79 E/E' Med: 12.20 E' Laterial: 3.81 E/E' Lat: 15.30 Right Ventricle TAPSE (mm): 24.00 TVS' Forrest: 16.00 Tricuspid Valve TR Pk Forrest: 2.53 TR Pk Grad: 26.00 RA Press: 3.00 RVSP: 29.00 Great Vessels Aorta Ao Root-2D: 3.10 2.0-3.7 cm Ao Asc: 3.20 2.1-3.4 cm Pulmonary Valve PV Pk Forrest: 1.18 Peak PV Grad: 6.00 Updated in Other Vendor System with Status of Final Iraj Hackett MD electronically signed on 06/30/2024 11:12:26 AM with status of Final
== END ==
LOC: HO.CARD 07:53
PROVIDERS: PCP General Practice
DX: R06.00 Dyspnea, unspecified (principal); R07.2 Precordial pain
CPT/HCPCS: 93017; 93306

== ENCOUNTER → 2024-06-30 07:57 | Outpatient (BNV) | payer OTHER, SELFPAY | PROVIDERS: PCP General Practice | DX: I36.1 Nonrheumatic tricuspid (valve) insufficiency (principal); I34.81 Nonrheumatic mitral (valve) annulus calcification; R06.02 Shortness of breath; I49.3 Ventricular premature depolarization | CPT/HCPCS: 93016; 93018; 93320; 93350 ==

== ENCOUNTER 2024-07-30 13:51 | Outpatient (AMB) | payer OTHER, SELFPAY ==
--- NOTE | 2024-07-30 13:53 | A.OFFVIS_ITS ---
Vital Signs 07/30/24 13:55 Height 5 ft 4 in Weight 178 lb 9.191 oz BMI 30.6 BP 120/60 Blood Pressure Location Lt brachial Position Sitting Pulse 70 Pulse Source Pulse Oximeter Intake Visit Reasons: follow up/ ETT Space Operations Officer Required: Yes Space Operations Officer Name: BALJINDER [id number] Allergies codeine [Codeine] Allergy (Mild, Verified 06/04/24 14:14) RASH meperidine [From Demerol] Allergy (Mild, Verified 06/04/24 14:14) RASH Medication List - Last Reconciled 07/30/24 by Emir Obregon NP amlodipine 2.5 mg PO DAILY atorvastatin 80 mg PO BEDTIME gabapentin 100 mg PO TID hydrochlorothiazide 25 mg PO DAILY metformin ER 500 mg PO DAILY eilvkiupvmhc-bmrhayuk-jgqutk (Cerovite Senior) 1 tab PO DAILY HPI Comments Details: This is a 79-year-old female patient presenting for a follow-up visit. The patient is Tajik-speaking and an credit and collections representative was used throughout the visit. She has a history of diabetes, hypertension, and pulmonary embolism for which she was previously treated with Eliquis. The patient was seen in the office previously for ongoing chest tightness and shortness of breath. She had negative workup in the emergency room for the same symptoms and subsequently underwent a stress test and an echocardiogram. Today, the patient reports resolution of all her symptoms and denies any cardiac symptoms including exertional chest pain, shortness of breath, palpitations, dizziness, fatigue, orthopnea, PND, leg edema, presyncope, or syncope. The patient confirms compliance with the her medications. [facility] Medical History (Updated 07/30/24 @ 14:22 by Emir Obregon NP) Generalized degenerative joint disease of hand Arthritis Hx of transfusion of packed red blood cells Depression Diabetes Elevated cholesterol HTN (hypertension) Surgical History Hx of shoulder surgery Hx of varicose vein ligation History of evacuation of hematoma History of carpal tunnel release History of total bilateral knee replacement H/O colonoscopy Family History Mother Ovarian cancer Father HTN (hypertension) Pacemaker Kidney malignancy Son Kidney malignancy Social History Alcohol intake: never Comment: counts correct Patient Tobacco Use Status: Never used Tobacco Review of Systems Const Denies weakness ENT Denies dizziness Card Denies chest pain, Denies chest pain with activity, Denies syncope, Denies rapid heart rate, Denies pedal edema, Denies edema, Denies leg edema, Denies lightheadedness, Denies palpitations, Denies dyspnea, Denies dyspnea on exertion and Denies orthopnea Resp Denies cough, Denies dyspnea and Denies dyspnea on exertion GI Denies hematochezia and Denies change in stool character Musc Denies abnormal gait, Denies muscle cramps, Denies muscle weakness, Denies numbness, Denies radiating pain into limb and Denies tingling Neuro Denies abnormal gait, Denies dizziness, Denies syncope, Denies numbness, Denies tingling and Denies weakness Endo Denies palpitations Physical Exam Vital Signs: Last Vital Signs Pulse 70 07/30/24 13:55 BP 120/60 07/30/24 13:55 BMI result Body Mass Index 30.6 Const General: cooperative, healthy appearing, comfortable and no acute distress Orientation/consciousness: patient oriented x3 HEENT Head: Yes normal to inspection Neck Neck: Yes normal visual inspection, Yes trachea midline and Yes supple Chest Chest palpation & inspection: normal inspection of the chest Resp Effort & Inspection: normal respiratory effort Auscultation: clear to auscultation bilaterally, no crackles, no rales, no rhonchi and no wheezes Cardio Jugular venous distension: no JVD Palpation: normal PMI Rate: regular rate Rhythm: regular rhythm Heart sounds: S1 normal heart sound present, S2 normal heart sound present, no click, no gallops, no murmurs and no rubs Peripheral pulses: Peripheral pulses 2+ throughout GI Inspection: Yes normal to inspection Palpation (GI): Soft to palpation Auscultation: normal bowel sounds Skin General skin exam: no rashes or lesions noted Neuro General: patient oriented x3 Extrem General: Yes normal to inspection, No no pedal edema and No calf tenderness Psych Appearance: grossly normal Mental Status: mental status grossly normal Speech and movement: Normal speech and movement present Assessment & Plan Assessment & Plan (1) NSTEMI (non-ST elevated myocardial infarction): Code(s): I21.4 - Non-ST elevation (NSTEMI) myocardial infarction Category: Medical Plan: 06/30/2024-patient's stress echo study showed a normal EF of 69%, with no valvular or wall motion abnormalities. 06/30/2024-patient also underwent a treadmill stress test without any EKG changes at the achieved workload of 108% MPHR, had a low workload of 4.6 Mets. Given the resolution of her previous reported symptoms, we will continue to monitor for now. Discussed that if she did develop chest discomfort or shortness of breath then we can revisit and proceed with a coronary CTA, to which patient is agreeable. (2) HTN (hypertension): Code(s): I10 - Essential (primary) hypertension Category: Medical Plan: Blood pressure today is well-controlled. Continue current regimen. Advised to continue monitoring blood pressures at home and keeping a log of it. Ideally, blood pressure goal less than 130/80. Patient states her blood sugars have been stable at home, continue diabetes management. Ideally, A1c less than 7%. Patient has upcoming labs with her PCP for lipids. Continue high-dose statin therapy. Ideally, LDL less than 70. Advised heart healthy diet, regular exercise, losing weight, and aggressive management of vascular risk factors. Patient will follow-up as needed in the office. In the interim, patient will call us with any concerns or change in symptoms. Advised patient to seek ER care in case of exertional chest pain not resolved with rest. This note was generated using voice recognition software. While every effort has been made to ensure accuracy and proper timber hewer, there may be occasional errors that could affect the content or meaning of the described symptoms. Coding Level of Care Code Est Pt Level 4 (49230) Complex EM visit Add On G2211 Diagnoses NSTEMI (non-ST elevated myocardial infarction) I21.4 HTN (hypertension) I10 Time Spent (min) 32 Comment Time spent in reviewing the chart, test results, assessment, counseling and documentation.
[2024-07-30 13:55] VITALS: BP 120/60; PULSE 70; BMI 30.6
--- OUTSIDE RECORDS SUMMARY | 2024-07-30 16:31 | XMS_ITS | Clinical Summary ---
Author Organization [facility] Address [address] [place] [address] Care Team Providers Care Marketing Data Specialist Name Role Phone Unavailable Primary Care Provider [...]
--- OUTSIDE RECORDS SUMMARY | 2024-07-30 16:31 | XMS_ITS | Encounter Summary ---
Author Organization [facility] Address [address] [place] [address] Care Team Providers Care Rim Roller Setter Name Role Phone Liz Cary MD Primary Care Provider [phone] Reason for Visit * Reason Comments Med Refill Encounter Details Date Type Department Care Team (Late st Contact Info) Description 07/28/2024 Refill [facility] [address] [place], [place] [phone] Liz Cary MD [address] [place], [place] [phone] Mixed hyperlipidemia Social History Tobacco Use Types Packs/Day Years Used Date Smoking Tobacco: Never Passive Smoke Exposure: Never Smokeless Tobacco: Never Alcohol Use Standard Drinks/Week Comments Never 0 (1 standard drink = 0.6 oz pur e alcohol) Alcohol Answer Date Recorded How often do you have a drink containing alcohol ? 1 07/26/2024 How many drinks containing a lcohol do you have on a typical day when you are drinking? 0 07/26/2024 How often do you have six or more drinks on one occasion? 0 07/26/2024 Depression Answer Date Recorded Patient Health Questionnaire-9 Score 15 01/27/2024 Patient Health Questionnaire-9 Score 15 01/27/2024 Last PHQ-9: Questionnaire Data Not on file 0 01/27/2024 Housing Stability Answer Date Recorded What is your housing situation today? I have brenna ray 07/04/[address] you li ve. Do you have problems with any of the following? None of the above 07/04/2023 Food Insecurity Answer Date Recorded Within the past 12 months, y ou worried that your food would run out before you got money to buy more: Never True 07/04/2023 Within the past 12 months,th e food you bought just didn't last and you didn't have enough money to get more: Never True Transportation Answer Date Recorded In the past 12 months, has l ack of transportation kept you from medical appts, meetings, work or from getting things needed for daily living? No 07/04/2023 Intimate Partner Violence Answer Date R ecorded Within the last year, have y ou been afraid of your partner or ex-partner? 2 07/26/2024 Within the last year, have y ou been humiliated or emotionally abused in other ways by your partner or ex-partner? 2 Within the last year, have y ou been kicked, hit, slapped, or otherwise physically hurt by your partner or ex-partner? 2 07/26/2024 Within the last year, have y ou been raped or forced to have any kind of sexual activity by your partner or ex-partner? 2 07/26/2024 Utilities Answer Date Recorded In the past 12 months, has t he electric, gas, oil or water company threatened to shut off services in your home? No 07/04/2023 Depression Answer Date Recorded Patient Health Questionnaire-2 Score 6 01/27/2024 Internet Access Answer Date Recorded Internet Access Q1 Yes 07/15/2024 Internet Access Q2 Not on file 07/15/2024 Comments Unknown Sex and Gender Information Value Date Recorded Sex Assigned at Female 03/12/2022 10:14 AM EDT Legal Sex Female 10:14 AM EDT Gender Identity Female 03/12/2022 10:14 AM EDT Sexual Orientation Straight 03/12/2022 10 :14 AM EDT documented as of this encounter Plan of Treatment Not on file documented as of this encounter Visit Diagnoses Diagnosis Mixed hyperlipidemia documented in this encounter Additional Health Concerns Assessment Noted Time PHQ-9 Depression Total Score: 15 024 11:51 AM EDT documented as of this encounter Care Teams Rim Roller Setter Relationship Specialty Start Date End Date Liz Cary MD [address] [place] [address] PCP - General Family Medicine 01/04/22 documented as of this encounter
--- OUTSIDE RECORDS SUMMARY | 2024-07-30 16:31 | XMS_ITS | Encounter Summary ---
Author Organization [facility] Address [address] [place] [address] Care Team Providers Care Van Helper Name Role Phone Liz Cary MD Primary Care Provider [phone] Encounter Details Date Type Department Care Team (Latest Contact Info) Description 07/22/2024 Travel Social History Tobacco Use Types Packs/Day Years Used Date Smoking Tobacco: Never Passive Smoke Exposure: Never Smokeless Tobacco: Never Alcohol Use Standard Drinks/Week Comments Never 0 (1 standard drink = 0.6 oz pur e alcohol) Depression Answer Date Recorded Patient Health Questionnaire-9 [...] things needed for daily living? No 07/04/2023 Utilities Answer Date Recorded In the past [...] Diagnoses Not on filedocumented in this encounter Additional Health Concerns Assessment Noted Time PHQ-9 Depression Total Score: 15 024 11:51 AM EDT documented as of this encounter Care Teams Van Helper Relationship Specialty Start Date End Date Liz Cary MD [address] [place] [address] PCP - General Family Medicine 01/04/22 documented as of this encounter
--- OUTSIDE RECORDS SUMMARY | 2024-07-30 16:31 | XMS_ITS | Encounter Summary ---
Author Organization [employer] Address [address] [facility] 7t [place] [address] Care Team Providers Care Semiconductor Wafers Etch Operator Name Role Phone Liz Cary MD Primary Care Provider [phone] Reason for Visit * Reason Comments Diabetes Encounter Details Date Type Department Care Team (Late st Contact Info) Description 07/22/2024 4:00 PM EDT Office Visit [facility] [address], [place] [phone] Liz Cary MD [address] [place], [place] [phone] Non-cardiac chest pain (Primary Dx); Type 2 diabetes mellitus without complication, without long-term current use of insulin (CMS/HCC); Dietary counseling; Exercise counseling; Overweight; Acute saddle pulmonary embolism without acute cor pulmonale (CMS/HCC); Recurrent major depressive episodes, moderate (CMS/HCC); Type 2 diabetes mellitus with chronic kidney disease, without long-term current use of insulin, unspecified CKD stage (CMS/HCC); Primary hypertension Social History Tobacco Use Types Packs/Day Years Used Date Smoking Tobacco: Never Passive Smoke Exposure: Never Smokeless Tobacco: Never Tobacco Cessation:Counseling Given: Not Answered Alcohol Use Standard Drinks/Week Comments Never 0 [...] Answer Date Recorded Patient Health Questionnaire-9 Score 01/27/2024 Patient Health Questionnaire-9 Score 01/27/2024 Last PHQ-9: Questionnaire Data Not on [...] AM EDT documented as of this encounter Last Filed Vital Signs Vital Sign Reading Time Taken Comments Blood Pressure 147/77 07/22/2024 3:48 PM EDT Pulse 92 07/22/2024 3:48 PM EDT Temperature 36.6 ??C (97.8 ??F) 07/22/2024 3:48 PM ED T Respiratory Rate 16 07/22/2024 3:48 PM EDT Oxygen Saturation 97% 07/22/2024 3:48 PM EDT Inhaled Oxygen Concentration - - Weight 77.6 kg (171 lb) 07/22/2024 3:48 PM EDT Height 162.6 cm (5' 4 ) 07/22/2024 3:48 PM EDT Body Mass Index 29.35 07/22/2024 3:48 PM EDT documented in this encounter Progress Notes * Liz Cary MD - 07/22/2024 4:00 PM EDT SUBJECTIVE: Giana Appiah is a 79 y.o. year old female who presents for chronic disease management. Denies recent illness, ER visit, or hospitalization. Acute Concerns: Worsening depression because her sister is undergoing treatment for breast cancer and she has not seen her in over 26 years Interim Updates: Pulmonary Embolism with cor pulmonale Dx 11/27/23 at [facility] after rapid response called here in clinic and sent to ER On Eliquis 5mg BID for 6 months, treatment ended May 29, [address] end of February 2024 showed resolution of PE Chest pain 04/30/24 ER for chest pain, resolved PE on CTPA 06/04/24 cards: treadmill stress test and an echocardiogram. Cont statin, BP meds 04/30/24- patient's CT scan revealed a nonspecific 3 mm pulmonary nodule. PCP to monitor this finding. 06/05/24 saw cards [facility] [place] [facility] [place], treadmill and Echo Trigeminal Neuralgia [place] [facility] MRI ordered and results as below: No mass or abnormal enhancement along the trigeminal nerves. The superior cerebral arteries course along the superior aspect of the trigeminal nerves bilaterally. There is a venous structure along the lateral aspect of the left trigeminal nerve at the root insertion zone. No significant nerve displacement. Findings are nonspecific for neurovascular compression. Gabapentin 100mg BID is helpful for pain and not too sedating Chronic sinusitis CT head 11/16/23 Frothy secretions in the right frontal sinus with patchy paranasal sinus mucosal thickening, recommend correlation with symptoms of sinusitis. 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 2. There is electrodiagnostic evidence for left moderate-severe median neuropathy at the wrist, consistent with carpal tunnel syndrome. 3. 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 4. There is no electrodiagnostic evidence for brachial plexopathy or cervical radiculopathy. Neck pain treated with muscle relaxer and topicals range of motion and pain back to baseline Hip pain OA bothers her greatly, makes it hard to walk, which she cherishes as part of her independence ER visit to [place] 01/2022 shows xrays with dextroscoliosis and mild degenerative changes of L spine and L hip Hypertension Currently taking amlodipine 5 mg and HCTZ 25 mg daily. Unable to tolerate CORI/ARB given history of angioedema associated with lisinopril use. 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 She is taking Metformin monotherapy, and her A1C values over the past year have been 6.5 and 6.5 Depression Endorses depressive symptoms Continues venlafaxine ER 75 mg daily, declines increase in dose today, will offer again at next visit Hyperlipidemia Taking Atorvastatin 80 mg daily Lab Results Component Value Date TRIG 114 01/02/2023 CHOL 137 01/02/2023 LDLCHOLCAL 71 01/02/2023 HDL 44 01/02/2023 Constipation Denies current symptoms well controlled with daily docusate sodium 100 mg. Health maintenance: Mammogram- UTD Colon- UTD Eye care- in 2022 Imms- due for RSV and COVID, declines today Patient Active Problem List Diagnosis Constipation Diabetic nephropathy associated with type 2 diabetes mellitus (CMS/HCC) History of total knee arthroplasty Hyperlipidemia Hypertensive disorder Obesity Primary osteoarthritis of both knees Recurrent major depressive episodes, moderate (CMS/HCC) Type 2 diabetes mellitus (CMS/HCC) Bilateral hip pain Pain in both hands Left carpal tunnel syndrome Catherine's palsy Neuralgia Hypernatremia Acute saddle pulmonary embolism without acute cor pulmonale (CMS/HCC) Encounter for immunization Non-cardiac chest pain Atypical chest pain Past Surgical History: Procedure Laterality Date CTA CHEST W AND WO CONTRAST 04/30/2024 CTA CHEST W AND WO CONTRAST No family history on file. Social History Social History Narrative Not on file Review of Systems Constitutional: Negative. Respiratory: Negative. Cardiovascular: Negative. Gastrointestinal: Negative. Genitourinary: Negative. Psychiatric/Behavioral: Positive for dysphoric mood. OBJECTIVE: Vitals: 07/22/24 1548 BP: (!) 147/77 BP Location: Right arm Patient Position: Sitting BP Cuff Size: Adult Pulse: 92 Resp: 16 Temp: 97.8 ??F (36.6 ??C) TempSrc: Temporal SpO2: 97% Weight: 171 lb (77.6 kg) Height: 5' 4 (1.626 m) Physical Exam Vitals and nursing note reviewed. Constitutional: Appearance: Normal appearance. HENT: Head: Normocephalic and atraumatic. Cardiovascular: Rate and Rhythm: Normal rate and regular rhythm. Pulses: Normal pulses. Heart sounds: Normal heart sounds. Pulmonary: Effort: Pulmonary effort is normal. Breath sounds: Normal breath sounds. Skin: General: Skin is warm and dry. Neurological: General: No focal deficit present. Mental Status: She is alert and oriented to person, place, and time. Psychiatric: Mood and Affect: Mood normal. Behavior: Behavior normal. ASSESSMENT/PLAN Problem List Items Addressed This Visit Hypertensive disorder Current Assessment & Plan Not at goal today, post-op? reports <140/90 at home, but in review of last four years of blood pressure data in clinic, the majority of blood pressure readings are 140-160/70-90. Increase Amlodipine to 10mg and continue hydrochlorothiazide 25mg Lab Results Component Value Date CREATININE 0.68 04/30/2024 CREATININE 0.73 09/11/2021 K 3.5 04/30/2024 Labs due at next visit Recurrent major depressive episodes, moderate (CMS/HCC) Current Assessment & Plan Active currently due to sister's illness Continue Effexor 75mg daily, she declines dose titration today Type 2 diabetes mellitus (CMS/HCC) Current Assessment & Plan Current A1c: 6.3 BMP: K normal, Cr normal Microalbumin: <30 Foot Exam: 06/2023 normal Eye Exam: 2021 Lipid panel: Lab Results Component Value Date LDLCHOL 68 08/10/2021 ASCVD: >10% Statin: Yes ASA: Yes CORI/ARB: No Encouraged regular aerobic exercise for improved glycemic control Encouraged daily foot checks Encouraged lean protein snacks and to avoid foods high in sugar and simple carbohydrates Treatment Goals: A1c goal: <7% FBG goal: <130 2 hour post prandial goal: <180 Relevant Orders POCT Glucose (Completed) Lipid Panel, Standard Acute saddle pulmonary embolism without acute cor pulmonale ([facility]) Current Assessment & Plan Resolved and Eliquis 6 month course complete Non-cardiac chest pain - Primary Other Visit Diagnoses Dietary counseling Exercise counseling Overweight Follow Up: 4 months or sooner prn Allergies Allergen Reactions Codeine Other reaction(s): Other (see comments), rash Lisinopril Angioedema Meperidine Other reaction(s): Other (see comments), rash Current Outpatient Medications: Alcohol Swabs (B-D SINGLE USE SWABS REGULAR) pads, APPLY 1 PAD TO SKIN BEFORE TESTING BLOOD SUGAR DAILY, Disp: 100 each, Rfl: 11 amLODIPine (Norvasc) 10 MG tablet, Take 1 tablet (10 mg) by mouth Once per day., Disp: 90 tablet, Rfl: 3 atorvastatin (Lipitor) 80 MG tablet, TAKE ONE TABLET BY MOUTH EVERY MORNING, Disp: 90 tablet, Rfl: 3 cyclobenzaprine (Flexeril) 5 MG tablet, Take 1/2 tablet by oral route three times daily as needed for muscle spasm, Disp: 10 tablet, Rfl: 0 docusate sodium (Colace) 100 MG capsule, TAKE 1 CAPSULE BY MOUTH 1- 2 TIMES EVERYDAY FOR CONSTIPATION NEEDED, Disp: 180 capsule, Rfl: 3 Eliquis 5 MG tablet, TAKE 1 TABLET BY MOUTH TWICE A DAY, Disp: 60 tablet, Rfl: 2 FreeStyle lancets, USE TO TEST BLOOD SUGAR ONCE DAILY, Disp: 100 each, Rfl: 11 FREESTYLE LITE test strip, CHECK BY FINGER STICK EVERYDAY, Disp: 50 strip, Rfl: 11 gabapentin (Neurontin) 100 MG capsule, Take 2 capsules (200 mg) by mouth 3 times daily., Disp: 90 capsule, Rfl: 0 hydroCHLOROthiazide (HYDRODiuril) 25 MG tablet, TAKE ONE TABLET BY MOUTH EVERY DAY, Disp: 90 tablet, Rfl: 3 Menthol-Methyl Salicylate (Muscle Rub) 10-15 % cream, Apply topically to affected area as needed for pain, Disp: 85 g, Rfl: 0 metFORMIN XR (Glucophage-XR) 500 MG 24 hr tablet, TAKE ONE TABLET BY MOUTH EVERY DAY, Disp: 90 tablet, Rfl: 3 Multiple Vitamins-Minerals (Cerovite Senior) tablet, Take 1 tablet by mouth every day, Disp: 90 tablet, Rfl: 3 pantoprazole (ProtoNix) 40 MG EC tablet, Take 40 mg by mouth Once per day., Disp: , Rfl: valACYclovir (Valtrex) 1 g tablet, TOME LIZZ TABLETA VIA ORAL RHEA VECES AL SERINA LUCINA 7 WEST, Disp: , Rfl: venlafaxine XR (Effexor XR) 75 MG 24 hr capsule, TAKE ONE CAPSULE BY MOUTH BEFORE EVENING MEAL., Disp: 90 capsule, Rfl: 3 Czech Translation: Provided by [facility] staff member SARTHAK Felix documented in this encounter Miscellaneous Notes * Assessment & Plan Note - Liz Cary MD - 07/26/2024 9:20 PM EDTAssociated Problem(s): Recurrent major depressive episodes, moderate (CMS/HCC) Active currently due to sister's illness Continue Effexor 75mg daily, she declines dose titration today * Assessment & Plan Note - Liz Cary MD - 07/26/2024 9:19 PM EDTAssociated Problem(s): Hypertensive disorder Not at goal today, post-op? reports <140/90 at home, but in review of last four years of blood pressure data in clinic, the majority of blood pressure readings are 140-160/70-90. Increase Amlodipine to 10mg and continue hydrochlorothiazide 25mg Lab Results Component Value Date CREATININE 0.68 04/30/2024 CREATININE 0.73 09/11/2021 K 3.5 04/30/2024 Labs due at next visit * Assessment & Plan Note - Liz Cary MD - 07/26/2024 9:17 PM EDTAssociated Problem(s): Type 2 diabetes mellitus (CMS/HCC) Current A1c: 6.3 BMP: K normal, Cr normal Microalbumin: <30 Foot Exam: 06/2023 normal Eye Exam: 2021 Lipid panel: Lab Results Component Value Date LDLCHOL 68 08/10/2021 ASCVD: >10% Statin: Yes ASA: Yes CORI/ARB: No Encouraged regular aerobic exercise for improved glycemic control Encouraged daily foot checks Encouraged lean protein snacks and to avoid foods high in sugar and simple carbohydrates Treatment Goals: A1c goal: <7% FBG goal: <130 2 hour post prandial goal: <180 * Assessment & Plan Note - Liz Cary MD - 07/26/2024 9:17 PM EDTAssociated Problem(s): Acute saddle pulmonary embolism without acute cor pulmonale (CMS/HCC) Resolved and Eliquis 6 month course complete documented in this encounter Plan of Treatment Scheduled Orders Name Type Priority Associated Diagnoses Orde r Schedule Lipid Panel, Standard Lab Routine Type 2 diabetes mellitus without complication, without long-term current use of insulin ([facility]/HCC) Expected: 07/26/2024 (Approximate), Expires: 07/26/2025 documented as of this encounter Procedures Procedure Name Priority Date/Time Associated Diagnosis Comments POCT GLUCOSE Routine 07/22/2024 3:58 PM EDT Type 2 diabetes mellitus without complication, without long-term current use of insulin ([facility]) documented in this encounter Results * POCT Glucose (07/22/2024 3:58 PM EDT) Glucose Blood, POC 126 60 - 200 mg/dL Blood Capillary blood specimen / Unknown 07/22/2024 3:58 PM EDT Result [facility] [place] Liz Cary MD POINT OF CARE TEST ENTER/EDIT ORDERABLES Final Result documented in this encounter Visit Diagnoses Diagnosis Non-cardiac chest pain- Primary Other chest pain Type 2 diabetes mellitus without complication, without long-term current use of insulin ([facility]) Dietary counseling Dietary surveillance and counseling Exercise counseling Overweight Acute saddle pulmonary embolism without acute cor pulmonale ([facility]) Recurrent major depressive episodes, moderate ([facility]) Major depressive disorder, recurrent episode, moderate Type 2 diabetes mellitus with chronic kidney disease, without long-term current use of insulin, unspecified CKD stage ([facility]) Primary hypertension Unspecified essential hypertension documented in this encounter Additional Health Concerns Assessment Noted Time PHQ-9 Depression Total Score: 15 024 11:51 AM EDT documented as of this encounter Care Teams Semiconductor Wafers Etch Operator Relationship Specialty Start Date End Date Liz Cary MD [address] [place] [phone] PCP - General Family Medicine 01/04/22 documented as of this encounter
--- OUTSIDE RECORDS SUMMARY | 2024-07-30 16:31 | XMS_ITS | Encounter Summary ---
Author Organization [employer] Address [address] [facility] 7t [place] [address] Care Team Providers Care Waredresser Name Role Phone Liz Cary MD Primary Care Provider [phone] Reason for Visit * Reason Comments Pre-visit Planning SDOH screening negat almas and tobacco screening negative Encounter Details Date Type Department Care Team (Late st Contact Info) Description 07/15/2024 Patient Outreach [facility] [address] [place], [place] [phone] Liz Cary MD [address] [place], [place] [phone] Pre-visit Planning (SDOH screening negative and tobacco screening negative) Social History Tobacco Use Types Packs/Day Years [...] AM EDT documented as of this encounter Progress Notes * Macrina Escamilla - 07/15/2024 10:55 AM EST CC Macrina placed successful outbound call to patient for pre-visit planning. Patient name and confirmed. Patient confirms appt date and time, and has transportation. Biggest concern for appointment at this time is non Patient advised to bring to appointment a photo id and insurance card. Appropriate screenings completed in anticipation of appointment. documented in this encounter Plan of Treatment Not on file documented as of this encounter Visit Diagnoses Not on filedocumented in this encounter Additional Health Concerns Assessment Noted Time PHQ-9 Depression Total Score: 15 024 11:51 AM EDT documented as of this encounter Care Teams Waredresser Relationship Specialty Start Date End Date Liz Cary MD [address] [place] [address] PCP - General Family Medicine 01/04/22 documented as of this encounter
--- OUTSIDE RECORDS SUMMARY | 2024-07-30 16:32 | XMS_ITS | Encounter Summary ---
Author Organization [facility] Address [address] [facility] 7t [place] [address] Care Team Providers Care Consumer Loan Officer Name Role Phone Liz Cary MD Primary Care Provider [phone] Reason for Referral * Medications - Closed Specialty Diagnoses / Procedures Referred By Ziggy murray Referred To Contact Diagnoses Osteitis of symphysis pubis (CMS/HCC) Liz Cary MD [address] [place] [address] Phone: tel: fax: Referral ID Status Reason Start Date Expiration Date Visits Re quested Visits Authorized [id number] Closed 1 1 Encounter Details Date Type Department Care Team (Late st Contact Info) Description 06/27/2022 Orders Only [facility] [address] [place] [phone] Liz Cary MD [address] [place] [phone] Osteitis of symphysis pubis (CMS/HCC) (Primary Dx) Social History Tobacco Use Types Packs/Day Years Used Date Smoking Tobacco: Never Smokeless Tobacco: Never Alcohol Use Standard Drinks/Week Comments Never 0 (1 standard drink = 0.6 oz pur e alcohol) Depression Answer Date Recorded Patient Health Questionnaire-2 Score 1 06/18/2022 Comments Unknown Sex and Gender Information Value Date Recorded Sex Assigned at Female 03/12/2022 10:14 AM EDT Legal Sex Female 10:14 AM EDT Gender Identity Female 03/12/2022 10:14 AM EDT Sexual Orientation Straight 03/12/2022 10 :14 AM EDT COVID-19 Exposure Response Date Recorded In the last 10 days, have yo u been in contact with someone who was confirmed or suspected to have Coronavirus/COVID-19? No / Unsure 06/18/2022 2:15 PM EST documented as of this encounter Plan of Treatment Not on file documented as of this encounter Visit Diagnoses Diagnosis Osteitis of symphysis pubis (CMS/HCC)- Primary documented in this encounter Care Teams Consumer Loan Officer Relationship Specialty Start Date End Date Liz Cary MD [address] [place] [phone] PCP - General Family Medicine 01/04/22 documented as of this encounter
--- OUTSIDE RECORDS SUMMARY | 2024-07-30 16:32 | XMS_ITS | Encounter Summary ---
Author Organization [employer] Address [address] [facility] 7t [place] [address] Care Team Providers Care Global Position System Technician Name Role Phone Liz Cary MD Primary Care Provider [phone] Encounter Details Date Type Department Care Team (Late st Contact Info) Description 08/29/2022 Orders Only [facility] [address] [place], [place] [phone] Liz Cary MD [address] [place], [place] [phone] Other hyperlipidemia (Primary Dx) Social History Tobacco Use Types [...] as of this encounter Visit Diagnoses Diagnosis Other hyperlipidemia- Primary documented in this encounter Care Teams Global Position System Technician Relationship Specialty Start Date End Date Liz Cary MD [address] [place], [place] [phone] PCP - General Family Medicine 01/04/22 documented as of this encounter
--- OUTSIDE RECORDS SUMMARY | 2024-07-30 16:32 | XMS_ITS | Encounter Summary ---
Author Organization [employer] Address [address] [place] [address] Care Team Providers Care Business Process Modeler Name Role Phone Liz Cary MD Primary Care Provider [phone] Reason for Visit * Reason Onset Date Comments Hospital Follow-up 12/02/2023 Encounter Details Date Type Department Care Team (Late st Contact Info) Description 12/02/2023 Telephone [facility] [address] [place], [place] [phone] Liz Cary MD [address] [place], [place] [phone] Hospital Follow-up Social History Tobacco Use Types Packs/Day Years Used Date Smoking Tobacco: Never Passive Smoke Exposure: Never Smokeless Tobacco: Never Alcohol Use Standard Drinks/Week Comments Never 0 (1 standard drink = 0.6 oz pur e alcohol) Housing Stability Answer Date Recorded What is [...] AM EDT documented as of this encounter Miscellaneous Notes * Telephone Encounter - Shakira Quevedo - 12/02/2023 2:05 PM EDT Tc from pt requesting a HDF appt. Hospital: [facility] Date of admission: 11/26 Discharge date: 11/30 Diagnosed: (Mouth) documented in this encounter Plan of Treatment Not on file documented as of this encounter Visit Diagnoses Not on filedocumented in this encounter Care Teams Business Process Modeler Relationship Specialty Start Date End Date Liz Cary MD [address] [place] [address] PCP - General Family Medicine 01/04/22 documented as of this encounter
--- OUTSIDE RECORDS SUMMARY | 2024-07-30 16:32 | XMS_ITS | Encounter Summary ---
Author Organization [facility], Address [address] [place] [address] Phone Care Team Providers Care Artist Suspect Name Role Phone Missy Severino NP Primary Care Provider Encounter Details Date Type Department Care Team (Late st Contact Info) Description 07/25/2021 Documentation Only [facility], [address] [place] [address] Miah Guzman MD [address] [place] [address] Social History Tobacco Use Types [...] on filedocumented in this encounter Care Teams Artist Suspect Relationship Specialty Start Date End Date Missy Severino NP PCP - General 03/17/19 documented as of this encounter
--- OUTSIDE RECORDS SUMMARY | 2024-07-30 16:32 | XMS_ITS | Encounter Summary ---
Author Organization [facility] Address [address] [facility] [address]t [place] [address] Care Team Providers Care Engineer Steam Name Role Phone Liz Cary MD Primary Care Provider Encounter Details Date Type Department Care Team (Late st Contact Info) Description 01/17/[address] [facility] [address] [place], [place] [phone] Provider, Miam, Social History Tobacco Use Types Packs/Day Years [...] on file documented as of this encounter Procedures Procedure Name Priority Date/Time Associated Diagnosis Comments COLONOSCOPY Routine 01/07/2017 documented in this encounter Results * Colonoscopy (01/07/2017) Historical Provider HEALTH MAINTENANCE Final Result documented in this encounter Visit Diagnoses Not on filedocumented in this encounter Care Teams Engineer Steam Relationship Specialty Start Date End Date Liz Cary MD [address] [place], [place] [phone] PCP - General Family Medicine 01/04/22 documented as of this encounter
--- OUTSIDE RECORDS SUMMARY | 2024-07-30 16:32 | XMS_ITS | Clinical Summary ---
Author Organization [facility], Address [address] [place] [address] [place] [address] Phone Care Team Providers Care Orthophoto Tech/Draftsman Name Role Phone Missy Severino NP Primary Care Provider [phone] Allergies Active Allergy Reactions Criticality Noted Date [...] patient's age to complete this topic Insurance [facility] CARE DUAL SNP ([id number]) Care Teams Orthophoto Tech/Draftsman Relationship Specialty Start Date End Date Missy Severino NP PCP - General 03/17/19
--- OUTSIDE RECORDS SUMMARY | 2024-07-30 16:32 | XMS_ITS | Clinical Summary ---
Author Organization [employer] Address [address] [place] [address] Care Team Providers Care Floral Designer Name Role Phone Liz Cary MD Primary Care Provider [phone] Allergies Active Allergy Reactions Criticality Noted Date Comments Codeine 05/15/2010 Other reaction(s): Other (see comments), rash Lisinopril Angioedema 11/11/2017 Meperidine 05/15/2010 Other reaction(s): Other (see comments), rash Medications cyclobenzaprine (Flexeril) 5 MG tabletIndications :Neck muscle spasm Take 1/2 tablet by oral route three times daily as needed for muscle spasm 10 tablet 023 Active docusate sodium (Colace) 100 MG capsule TAKE 1 CAPSULE BY MOUTH 1- 2 TIMES EVERYDAY FOR CONSTIPATION NEEDED 180 capsule 3 023 Active venlafaxine XR (Effexor XR) 75 MG 24 hr capsuleIndication s:Moderate episode of recurrent major depressive disorder (CMS/HCC) TAKE ONE CAPSULE BY MOUTH BEFORE EVENING MEAL. 90 capsule 3 023 Active FREESTYLE LITE test strip CHECK BY FINGER STICK EVERYDAY 50 strip 11 023 Active Menthol-Methyl Salicylate (Muscle Rub) 10-15 % creamIndications: Neck muscle spasm Apply topically to affected area as needed for pain 85 g 023 Active Alcohol Swabs (B-D SINGLE USE SWABS REGULAR) padsIndications:T ype 2 diabetes mellitus with other specified complication, unspecified whether halfway insulin use (CMS/HCC) APPLY 1 PAD TO SKIN BEFORE TESTING BLOOD SUGAR DAILY 100 each 11 024 Active FreeStyle lancetsIndication s:Type 2 diabetes mellitus with other specified complication, unspecified whether terminal gauger supervisor insulin use ([facility]) USE TO TEST BLOOD SUGAR ONCE DAILY 100 each 11 Active atorvastatin (Lipitor) 80 MG tabletIndications :Other hyperlipidemia TAKE ONE TABLET BY MOUTH EVERY MORNING 90 tablet 3 Active gabapentin (Neurontin) 100 MG capsule Take 2 capsules (200 mg) by mouth 3 times daily. 90 capsule 024 2024 Active pantoprazole (ProtoNix) 40 MG EC tablet Take 40 mg by mouth Once per day. Active valACYclovir (Valtrex) 1 g tablet TOME LIZZ TABLETA VIA ORAL RHEA VECES AL SERINA LUCINA 7 WEST Active Eliquis 5 MG tabletIndications :Pulmonary Embolism TAKE 1 TABLET BY MOUTH TWICE A DAY 60 tablet 2 Active metFORMIN XR (Glucophage-XR) 500 MG 24 hr tablet TAKE ONE TABLET BY MOUTH EVERY DAY 90 tablet 3 Active hydroCHLOROthiazi de (HYDRODiuril) 25 MG tablet TAKE ONE TABLET BY MOUTH EVERY DAY 90 tablet 3 Active amLODIPine (Norvasc) 10 MG tablet Take 1 tablet (10 mg) by mouth Once per day. 90 tablet 3 025 2025 Active Multiple Vitamins-Minerals (Cerovite Senior) tabletIndications :Mixed hyperlipidemia TAKE ONE TABLET BY MOUTH EVERY DAY 90 tablet 3 025 Active Multiple Vitamins-Minerals (Cerovite Senior) tabletIndications :Mixed hyperlipidemia Take 1 tablet by mouth every day 90 tablet 3 024 2024 Discontinued amLODIPine (Norvasc) 5 MG tablet TAKE ONE TABLET BY MOUTH EVERY DAY 90 tablet 3 024 2024 Discontinued(D ose adjustment) Active Problems Problem Noted Date Diagnosed Date Atypical chest pain 05/19/2024 Encounter for immunization 05/16/2024 Assessment & Plan (05/16/2024 5:35 PM EST): Plan Administer flu vaccine Non-cardiac chest pain 05/16/2024 Assessment & Plan (05/20/2024 10:07 AM EST): Plan Continue with medications as prescribed Call [facility] office and book appointment, Call the office if experiencing difficulty in booking your appointment Keep upcoming appointment with PCP for chronic disease management and cessation of Eliquis If chest pain returns and worsens, or worsening chest pain/shortness of breath or fever go to the emergency department Dietary and exercise counseling Hypernatremia 12/18/2023 Assessment & Plan (12/18/2023 1:11 PM EDT): Likely patient was dehydrated I will recheck BMP to make sure her Na is WNL Acute saddle pulmonary embolism without acute co r pulmonale 12/18/2023 Assessment & Plan (07/26/2024 9:17 PM EDT): Resolved and Eliquis 6 month course complete Assessment & Plan (12/18/2023 1:10 PM EDT): Continue apixaban, refilled done, f/u with PCP 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 Assessment & Plan (11/25/2023 5:22 PM EDT): Finish treatment prescribed by ED provider Continue closing her eye at nigh with skin tape Neuralgia 11/22/2023 Assessment & Plan (12/18/2023 1:11 PM EDT): Patient is stable on gabapentin 100mg Q 8hrs, I advise if pain gets worse she can take acetaminophen PRN Patient will also f/u with specialist Assessment & Plan (11/27/2023 9:36 AM EDT): Decrease Gabapentin to 100mg TID Call oral surgeon Assessment & Plan (11/25/2023 5:23 PM EDT): Probably neuralgia on her mouth I will prescribe gabapentin 300mg Q 8hrs f/u wth PCP to titter dose if necessary Left carpal tunnel syndrome 07/11/2023 Assessment & Plan (09/16/2023 12:25 PM EDT): S/p release or CTS and ulnar nerve, LEFT sided 09/05/23 Assessment & Plan (07/11/2023 9:19 AM EST): Plan for release 08/2023 Pain in both hands 01/02/2023 Assessment & Plan (02/19/2024 3:04 PM EDT): To take NSAIDs out of house and not use them for 6 months of Eliquis treatment Up to 3gm of Tylenol daily, prescription given Tramdol 50mg at night for sleep, she was counseled on the risk and benefits of this medication and agrees that it is helpful for sleep and would like to continue taking it for the duration of her treatment course with Eliquis Assessment & Plan (01/27/2024 1:00 PM EDT): To take NSAIDs out of house and not use them for 6 months of Eliquis treatment Up to 3gm of Tylenol daily, prescription given Tramdol 50mg at night for sleep, she was counseled on the risk and benefits of this medication and will f/u with me in 4 weeks in person to discuss effects F/u for any questions or worsening of pain prior Bilateral hip pain 06/20/2022 Type 2 diabetes mellitus 08/12/2021 Assessment & Plan (07/26/2024 9:17 PM EDT): Current A1c: 6.3 BMP: K normal, Cr [...] <130 2 hour post prandial goal: <180 Assessment & Plan (12/18/2023 1:09 PM EDT): A1c at goal Continue to follow with PCP Assessment & Plan (09/16/2023 12:26 PM EDT): Current A1c: 6.3 BMP: K normal, Cr [...] <130 2 hour post prandial goal: <180 Assessment & Plan (07/11/2023 9:23 AM EST): Current A1c: 6.3 BMP: K normal, Cr normal Microalbumin: <30 Foot Exam: Today, normal Eye Exam: 2021 Lipid panel: Lab Results Component Value Date LDLCHOL 68 08/10/2021 ASCVD: >10% Statin: Yes ASA: Yes CORI/ARB: No Encouraged regular aerobic exercise for improved glycemic control Encouraged daily foot checks Encouraged lean protein snacks and to avoid foods high in sugar and simple carbohydrates Treatment Goals: A1c goal: <7% FBG goal: <130 2 hour post prandial goal: <180 Assessment & Plan (01/04/2023 7:46 AM EDT): Current A1c: 6.3 BMP: K normal, Cr normal Microalbumin: <30 Foot Exam: Complete at follow up Eye Exam: Discuss at follow up Lipid panel: ASCVD: Calculate pending updated labs Statin: Yes ASA: Yes CORI/ARB: No Encouraged regular aerobic exercise for improved glycemic control Encouraged daily foot checks Encouraged lean protein snacks and to avoid foods high in sugar and simple carbohydrates Treatment Goals: A1c goal: <7% FBG goal: <130 2 hour post prandial goal: <180 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 reports <140/90 at home, but in review of last four years of blood pressure data in clinic, the majority of blood pressure readings are 140-160/70-90. Increase Amlodipine to 10mg and continue hydrochlorothiazide 25mg Lab Results Component Value Date CREATININE 0.68 04/30/2024 CREATININE 0.73 09/11/2021 K 3.5 04/30/2024 Labs due at next visit Assessment & Plan (09/16/2023 12:26 PM EDT): Not at goal today, post-op? reports <140/90 at home Continue Amlodipine 5mg and hydrochlorothiazide 25mg Lab Results Component Value Date CREATININE 0.69 01/02/2023 CREATININE 0.73 09/11/2021 K 3.6 01/02/2023 Labs due at next visit Assessment & Plan (07/11/2023 9:22 AM EST): At goal here reports <140/90 at home Continue current regimen Lab Results Component Value Date CREATININE 0.69 01/02/2023 CREATININE 0.73 09/11/2021 K 3.6 01/02/2023 Labs due at next visit Assessment & Plan (01/04/2023 7:45 AM EDT): Not at goal here, reports <140/90 at home Continue current regimen Cr 0.69 Recurrent major depressive episodes, moderate Assessment & Plan (07/26/2024 9:20 PM EDT): Active currently due to sister's illness Continue Effexor 75mg daily, she declines dose titration today Assessment & Plan (01/04/2023 7:49 AM EDT): In remission Continue Effexor 75mg daily History of total knee arthroplasty 03/06/2017 Primary osteoarthritis of both knees 03/06/2017 Constipation 05/04/2015 Hyperlipidemia 05/04/2015 Assessment & Plan (01/04/2023 7:49 AM EDT): Cont Atorvastatin 80mg for primary prevention Obesity 05/04/2015 Resolved Problems Problem Noted Date Diagnosed Date Resolved Date Stage 2 chronic kidney disease 01/27/2020 06/04/2022 Encounters Date Type Department Care Team Description 07/28/2024 Refill [facility] [address] [place] [address] Liz Cary MD Mixed hyperlipidemia 07/22/2024 4:00 PM EDT Office Visit [facility] [address] [place] [phone] Liz Cary MD Non-cardiac chest pain (Primary Dx); Type 2 diabetes mellitus without complication, without long-term current use of insulin (CMS/HCC); Dietary counseling; Exercise counseling; Overweight; Acute saddle pulmonary embolism without acute cor pulmonale (CMS/HCC); Recurrent major depressive episodes, moderate (CMS/HCC); Type 2 diabetes mellitus with chronic kidney disease, without long-term current use of insulin, unspecified CKD stage (CMS/HCC); Primary hypertension 07/22/2024 Travel 07/15/2024 Patient Outreach [address] [address] Liz Cary MD Pre-visit Planning (SDOH screening negative and tobacco screening negative) 06/15/[address] [address] Liz Cary MD Immunizations 06/05/[address] [address] Elvira Auguste MA recall 05/25/[address] [address] Liz Cary MD Call Back Request 05/18/[address] [address] Liz Cary MD Referral 05/15/2024 11:15 AM EST Office Visit [address] [address] Tana Gold FNP Type 2 diabetes mellitus without complication, without long-term current use of insulin ([facility]) (Primary Dx); Encounter for immunization; Non-cardiac chest pain 05/11/[address] [address] Pushpa Black MA Chart Prep 05/01/[address] [address] Liz Cary MD ER Follow-up from Last 3 Months Immunizations Name Administration Dates Next Due Hep A, Adult 11/11/2017,05/08/2016 Influenza injectable quadriv alent IIV4 with preservative 06/11/2017,04/26/2016 Influenza injectable quadriv alent preservative free 02/04/2019 Influenza, High Dose Seasona l, Preservative Free 05/15/2024,02/27/2015 Influenza, IIV3, injectable 02/10/2009 Influenza, Split (incl. sameer fied surface antigen) 05/04/2015,09/03/2013 Pfizer Covid-19 Vaccine 12+ 07/11/2023,,08/24/2021 Pfizer Covid-19 Vaccine 12+ mauro-sucrose (Hernandez Cap) 09/15/2021,08/24/2021 Pneumococcal Conjugate PCV 13 05/04/2015 Pneumococcal Polysaccharide PPSV23 06/11/2017,,11/29/2010 Pneumococcal, Unspecified 06/11/2017 TD (adult), 2 Lf tetanus tox oid, preservative free, adsorbed 10/18/2021,02/27/2001 Tdap 11/29/2010 Varicella 11/02/2018 Zoster, Recombinant 11/02/2018,08/07/2018 Zoster, live 05/04/2015 Social History Tobacco Use Types Packs/Day Years [...] Orientation Straight 03/12/2022 10 :14 AM EDT Last Filed Vital Signs Vital Sign Reading [...] Mass Index 29.35 07/22/2024 3:48 PM EDT Plan of Treatment Health Maintenance Due Date Last Done Comments RSV Patients and Patients Aged 60 years or older (1 - 1-dose 75+ series) 2022 Lipid Panel 01/03/2024 01/02/2023, 07/13, 11/25/2020, Additional history exists COVID-19 Vaccine ( season) 2024 07/11/2023, 09/15/2021, 09/15/2021, Additional history exists Depression Monitoring (PHQ-9) 07/26/2024 01/27/2024, 01/27/2024 Diabetes: Hemoglobin A1C 11/12/2024 025, 11/22/2023, 07/11/2023, Additional history exists Eye Exam 11/22/2024 11/22/2022 Depression Screening 01/26/2025 01/27/2024, 01/27/20 24 SDOH Screening 07/15/2025 07/15/2024 Diabetes: Foot Exam 07/22/2025 07/22/2024, 07/11/2023, 07/11/2023 Alcohol/Substance Use Screening 07/26/2025 07/26/2024 Tobacco Screening 07/26/2025 07/26/2024 DTaP/Tdap/Td Vaccines (3 - Td or Tdap) 10/19/2031 10/18/2021, 11/29/2010, 02/27/2001 Colonoscopy Discontinued 01/07/2017 Colorectal Cancer Screening Discontinued Pneumococcal Vaccine: 50+ Years Completed 06/11/2017, 06/11/2017, 05/04/2015, Additional history exists Hepatitis A Vaccines Aged Out 11/11/2017, 05/08/20 16 No longer eligible based on patient's age to complete this topic Zoster Vaccines Completed 11/02/2018, 07/12, 05/04/2015 Hepatitis C Screening Completed 08/10/2021 Influenza Vaccine Completed 05/15/2024, , 06/11/[address], Additional history exists CT Colonography Discontinued FIT DNA/Cologuard Discontinued FIT Discontinued FOBT Discontinued HIB Vaccines Aged Out No longer eligi [...] patient's age to complete this topic Meningococcal Vaccine Aged Out No venecia jose daniel eligible based on patient's age to complete this topic RSV under 20 months Aged Out No longe r eligible based on patient's age to complete this topic Rotavirus Vaccines Aged Out No longer eligible based on patient's age to complete this topic Sigmoidoscopy Discontinued Procedures Procedure Name Priority Date/Time Associated Diagnosis Comments POCT GLUCOSE Routine 07/22/2024 3:58 PM EDT Type 2 diabetes mellitus without complication, without long-term current use of insulin (CMS/HCC) POCT GLYCATED HEMOGLOBIN, TOTAL Routine 05/15/2024 11:23 AM EST Type 2 diabetes mellitus without complication, without long-term current use of insulin (CMS/HCC) POCT GLUCOSE Routine 05/15/2024 11:22 AM EST Type 2 diabetes mellitus without complication, without long-term current use of insulin (CMS/HCC) LIPID PANEL, STANDARD Routine 01/02/2023 12:41 PM EDT Type 2 diabetes mellitus with chronic kidney disease, without long-term current use of insulin, unspecified CKD stage (CMS/HCC) DIABETES EYE EXAM Routine 11/22/2022 ZZZ HISTORICAL HEPATITIS C AB W/REFL TO HCV RNA, QN, PCR Routine 08/10/2021 9:08 AM EDT COLONOSCOPY Routine 01/07/2017 from Last 3 Months or Most Recently Relevant to Health Maintenance Results * POCT Glucose (07/22/2024 3:58 PM EDT) Only the most recent of2 resultswithin the time period is included. Glucose Blood, POC 126 60 - 200 mg/dL Blood Capillary blood specimen / Unknown 07/22/2024 3:58 PM EDT Liz Cary MD POINT OF CARE TEST ENTER/EDIT ORDERABLES Final Result * (ABNORMAL) POCT HGB A1C (05/15/2024 11:23 AM EST) Hemoglobin A1C 6.3(A) 4.0 - 6.0 % QC Media Lot # [id number] Lot# Expiration Date Blood 05/15/2024 11:2 3 AM EST Tana GONZALEZ POINT OF CARE TEST ENTER/EDIT ORDERABLES Final Result * Lipid Panel, Standard (01/02/2023 12:41 PM EDT) Triglycerides 114 <150 mg/dL [facility] Comment:Desirable Triglyceri de: less than 150 mg/dLBorderline High Triglyceride 150-199 mg/dLHigh Triglyceride: 200-499 mg/dLVery High Triglyceride: greater than or equal to 5OO mg/dL Cholesterol 137 <200 mg/dL [facility] Comment:Desirable Cholestero l: less than 200 mg/dLBorderline High Cholesterol: 200-239 mg/dLHigh Cholesterol: greater than 239 mg/dL LDL Cholesterol Calculated 71 <100 mg/dL [facility] Comment:Desirable LDL: less than 100 mg/dLNear Optimal/Above Optimal LDL: 110- 129 mg/dLBorderline High LDL: 130-159 mg/dLHigh LDL: 160-189 mg/dLVery High LDL: greater than or equal to 190 mg/dL HDL Cholesterol 44 >40 mg/dL [facility] Comment:Desirable HDL: great er than 40 mg/dL Note: This HDL assay may give artificially low results in patients with liver disease. Blood Venous blood specimen / Unknown 01/02/2023 12:41 PM EDT 01/02/2023 1:23 PM EDT Liz Cary MD LAB BLOOD ORDERABLES Final Res ult [facility] [address] [place] [address] [phone] * Diabetes Eye Exam (11/22/2022) Eye Exam Normal Normal Liz Cary MD HEALTH MAINTENANCE Final Resul t * HEPATITIS C AB W/REFL TO HCV RNA, QN, PCR (08/10/2021 9:08 AM EDT) HEPATITIS C ANTIBODY NON-REACT STEVE NON-REACT STEVE [facility] INDEX 0.01 <1.00 [facility] Comment: ?? HCV antibody was non-reactive. There is no laboratory ?? evidence of HCV infection. ?? In most cases, no further action is required. However, if recent HCV exposure is suspected, a test for HCV RNA (test code 57411) is suggested. ?? For additional information please refer to http://education.[employer]/faq/LKS17n9 (This link is being provided for informational/ educational purposes only.) ?? 08/10/2021 9:08 AM EDT Pinky Cantrell NP HISTORICAL/NON ORDERABLE LABS F inal Result Performing Organization Address City/[facility]/ZIP Co de Phone Number [facility] [address] [place] [address], * Colonoscopy (01/07/2017) Mima Provider HEALTH MAINTENANCE Final Result from Last 3 Months or Most Recently Relevant to Health Maintenance Insurance [facility] Care Teams Floral Designer Relationship Specialty Start Date End Date Liz Cary MD [address] [place] [id number] PCP - General Family Medicine 01/04/22
== END 2024-07-30 14:10 | disposition home or self-care (01) ==
LOC: HO.HCS 13:52
PROVIDERS: PCP General Practice
DX: I21.4 Non-ST elevation (NSTEMI) myocardial infarction (principal); I10 Essential (primary) hypertension
CPT/HCPCS: 99214; G2211

== ENCOUNTER → 2024-07-30 13:51 | Outpatient (BNVA) | payer OTHER, SELFPAY | PROVIDERS: PCP General Practice | DX: I21.4 Non-ST elevation (NSTEMI) myocardial infarction (principal); I10 Essential (primary) hypertension; E11.9 Type 2 diabetes mellitus without complications; Z86.711 Personal history of pulmonary embolism | CPT/HCPCS: 99212 ==

== ENCOUNTER 2024-12-31 08:39 | Outpatient (REF) | payer OTHER, SELFPAY ==
--- OUTSIDE RECORDS SUMMARY | 2024-12-31 09:38 | XMS_ITS | Encounter Summary ---
Author Organization [facility], Address [address] [place] [address] Phone Care Team Providers Care Medical Laboratory Technician Name Role Phone Missy Severino NP Primary Care Provider [phone] Encounter Details Date Type Department Care Team (Late st Contact Info) Description 07/25/2021 Documentation Only [facility], [address] [place] [address] Miah Guzman MD [address] [place] [address] Social History Tobacco Use Types [...] on filedocumented in this encounter Care Teams Medical Laboratory Technician Relationship Specialty Start Date End Date Missy Severino NP PCP - General 03/17/19 documented as of this encounter
--- OUTSIDE RECORDS SUMMARY | 2024-12-31 09:38 | XMS_ITS | Clinical Summary ---
Author Organization [facility] Address [address] [place] [phone] Phone Care Team Providers Care Cadence Specialists Name Role Phone Liz Cary MD Primary Care Provider + Medications hydroCHLOROthia zide 25 MG tablet Take 25 mg by mouth daily. 3 Active atorvastatin (LIPITOR) 80 MG tablet Take 80 mg by mouth daily. Active ELIQUIS 5 mg tablet Take 5 mg by mouth 2 (two) times a day. 4 Active metFORMIN (GLUCOPHAGE-XR) 500 MG 24 hr tablet Take 500 mg by mouth daily with breakfast. 3 Active gabapentin (NEURONTIN) 100 MG capsule Take 1 capsule (100 mg total) by mouth every morning AND 1 capsule (100 mg total) Every Afternoon AND 4 capsules (400 mg total) nightly at bedtime. 4 Active Social History Tobacco Use Types Packs/Day Years Used Date Smoking Tobacco: Never Assessed Education Answer Date Recorded Are you interested in more education? Not on matty e 12/03/2023 Are you concerned about learning? Not on file 12/03/2023 No 12/03/2023 No 12/03/2023 Digital Access Answer Date Recorded No 12/03/2023 No 12/03/2023 Reliable internet access at home? Not on file 12/03/2023 Device with a working camera? Not on file Comments Unknown Sex and Gender Information Value Date Recorded Sex Assigned at Not on file Legal Sex Female 10:25 AM EDT Gender Identity Not on file Sexual Orientation Not on file Last Filed Vital Signs Vital Sign Reading Time Taken Comments Blood Pressure 144/69 12/24/2023 2:19 PM EDT Pulse 104 12/24/2023 2:19 PM EDT Temperature 37.1 C (98.7 F) 12/24/2023 2:19 PM EDT Respiratory Rate - - Oxygen Saturation 98% 12/24/2023 2:19 PM EDT Inhaled Oxygen Concentration - - Weight 78.5 kg (173 lb) 03/25/2024 10:56 AM EST Height 162.6 cm (5' 4 ) 03/25/2024 10:56 AM EST Body Mass Index 29.7 03/25/2024 10:56 AM EST Plan of Treatment Upcoming Encounters Date Type Department Care Team (Late st Contact Info) Description 02/18/2025 8:00 AM EDT Telemedicine [facility] Neurology at [address] [address] Brittanie Haynes PA-C [address] [place] [address] Department of Neurology, [place] [address] Health Maintenance Due Date Last Done Comments CREATININE LEVEL 1947 POTASSIUM LEVEL 1947 DEPRESSION SCREENING 1959 SMOKING Hx and SMOKELESS TOBACCO SCREENING 1960 HEPATITIS C SCREENING 1965 OSTEOPOROSIS SCREENING INITIAL (ONE-TIME) 2012 RSV VACCINE (1 - 1-dose 75+ series) 2022 COVID-19 VACCINE ( season) 2024 07/11/2023, 09/15/2021, 08/24/2021 LIPID PANEL 01/03/2028 01/02/2023 Adult Td,Tdap Booster 10/19/2031 10/18/2021 , 11/29/2010, 02/27/2001 PNEUMOCOCCAL VACCINES (50+ years) Completed 06/11/2017, 05/04/2015, 02/27/2015, Additional history exists HEPATITIS A VACCINES Aged Out 11/11/2017, 05/08/20 16 No longer eligible based on patient's age to complete this topic ZOSTER VACCINES Completed 11/02/2018, 07/12, 05/04/2015 HIB VACCINES Aged Out No longer eligi ble based on patient's age to complete this topic MENINGOCOCCAL VACCINES (ACWY) Aged Out No longer eligible based on patient's age to complete this topic MENINGOCOCCAL VACCINES (B) Aged Out N o longer eligible based on patient's age to complete this topic Medical Devices Not on file Insurance [facility] MEDICARE REPLACEMENT CORI SEARS [id number] [facility] MEDICARE REPLACEMENT [facility] MEDICARE REPLACEMENT [facility] MEDICARE [facility]PLACEMENT [facility] MEDICARE REPLACEMENT [facility] MEDICARE REPLACEMENT CORI SEARS [facility] Care Teams Cadence Specialists Relationship Specialty Start Date End Date Liz Cary MD PCP - General Family Medicine 12/03/23 Additional Source Comments The information contained in this document represents components of the legal health record. It is not the complete legal health record.[facility]
--- OUTSIDE RECORDS SUMMARY | 2024-12-31 09:38 | XMS_ITS | Clinical Summary ---
Author Organization [facility] Address [address] [place] [address] Care Team Providers Care Maritime Officer Name Role Phone Unavailable Primary Care Provider [...] 1997 Zoster Vaccines (1 of 2) 1997 Falls Risk Assessment 04/10/2022 Hepatitis C Screening 04/10/2022 Osteoporosis Screening (Bone Density Screening) 04/10/2022 Social Influencers of Health Screening 04/10/2022 RSV Immunization Adult Patie nts (1 - 1-dose 75+ series) 2022 COVID-19 Vaccine ( - 2023-2 5 season) 2024 Depression Screening 2024 Influenza Vaccine (#1) 2025 HIB Vaccines Aged Out No longer eligi [...] age to complete this topic Meningococcal B Vaccine Aged Out No l onger eligible based on patient's age to complete this topic RSV Immunization Patients Un osmin 20 months Aged Out No longer eligible b ased on patient's age to complete this topic Varicella Vaccines Aged Out No longer eligible based on patient's age to complete this topic
--- OUTSIDE RECORDS SUMMARY | 2024-12-31 09:38 | XMS_ITS | Clinical Summary ---
Author Organization [employer] Address [address] [facility] [address] [place] [address] Care Team Providers Care Infrastructure Technician Name Role Phone Liz Cary MD Primary Care Provider [phone] Allergies Active Allergy Reactions Criticality Noted Date Comments Codeine 05/15/2010 Other reaction(s): Other (see comments), rash Lisinopril Angioedema 11/11/2017 Meperidine 05/15/2010 Other reaction(s): Other (see comments), rash Medications cyclobenzaprine (Flexeril) 5 MG tabletIndications: Neck muscle spasm Take 1/2 tablet by oral route three times daily as needed for muscle spasm 10 tablet 05/30/19 23 Active docusate sodium (Colace) 100 MG capsule TAKE 1 CAPSULE BY MOUTH 1- 2 TIMES EVERYDAY FOR CONSTIPATION NEEDED 180 capsule 3 03/18/20 23 Active venlafaxine XR (Effexor XR) 75 MG 24 hr capsuleIndications :Moderate episode of recurrent major depressive disorder (CMS/HCC) TAKE ONE CAPSULE BY MOUTH BEFORE EVENING MEAL. 90 capsule 3 04/09/20 23 Active Menthol-Methyl Salicylate (Muscle Rub) 10-15 % creamIndications:N isabella muscle spasm Apply topically to affected area as needed for pain 85 g 05/02/20 23 Active FreeStyle lancetsIndications :Type 2 diabetes mellitus with other specified complication, unspecified whether wharf attendant insulin use ([facility]) USE TO TEST BLOOD SUGAR ONCE DAILY 100 each 11 09/03/19 24 Active gabapentin (Neurontin) 100 MG capsule Take 2 capsules (200 mg) by mouth 3 times daily. 90 capsule 11/27/19 24 Active pantoprazole (ProtoNix) 40 MG EC tablet Take 40 mg by mouth Once per day. 12/01/19 24 Active valACYclovir (Valtrex) 1 g tablet TOME LIZZ TABLETA VIA ORAL RHEA VECES AL SERINA LUCINA 7 WEST 11/27/19 24 Active Eliquis 5 MG tabletIndications: Pulmonary Embolism TAKE 1 TABLET BY MOUTH TWICE A DAY 60 tablet 2 02/28/20 24 Active metFORMIN XR (Glucophage-XR) 500 MG 24 hr tablet TAKE ONE TABLET BY MOUTH EVERY DAY 90 tablet 3 04/03/20 24 Active hydroCHLOROthiazid e (HYDRODiuril) 25 MG tablet TAKE ONE TABLET BY MOUTH EVERY DAY 90 tablet 3 04/06/20 24 Active amLODIPine (Norvasc) 10 MG tablet Take 1 tablet (10 mg) by mouth Once per day. 90 tablet 3 07/27/19 25 026 Active Multiple Vitamins-Minerals (Cerovite Senior) tabletIndications: Mixed hyperlipidemia TAKE ONE TABLET BY MOUTH EVERY DAY 90 tablet 3 07/29/19 25 Active atorvastatin (Lipitor) 80 MG tabletIndications: Other hyperlipidemia TAKE ONE TABLET BY MOUTH EVERY MORNING 90 tablet 3 09/24/19 25 Active FREESTYLE LITE test stripIndications:T ype 2 diabetes mellitus with other specified complication, unspecified whether wharf attendant insulin use ([facility]) CHECK BY FINGER STICK EVERYDAY 50 each 11 11/28/19 25 Active Alcohol Swabs (B-D SINGLE USE SWABS REGULAR) padsIndications:Ty pe 2 diabetes mellitus with other specified complication, unspecified whether senior living insulin use ([facility]) APPLY 1 PAD TO SKIN BEFORE TESTING BLOOD SUGAR DAILY 100 each 11 11/28/19 25 Active Active Problems Problem Noted Date Diagnosed Date Atypical chest pain 05/19/2024 Encounter for immunization 05/16/2024 Assessment & Plan (05/16/2024 5:35 PM EST): Plan Administer flu vaccine Non-cardiac chest pain 05/16/2024 Assessment & Plan (05/20/2024 10:07 AM EST): Plan Continue with medications as prescribed Call executive assistant to general counsel office and book appointment, Call the office [...] Assessment & Plan (07/26/2024 9:17 PM EDT): Christina 6 month course complete Assessment & Plan (12/18/2023 1:10 PM EDT): Continue apixaban, refilled done, 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 [address] [place] [address] Liz Cary MD Type 2 diabetes mellitus with other specified complication, unspecified whether senior living insulin use ([facility]) from Last 3 Months Immunizations Immunization Administration Dates Next Due Hep A, Adult [...] the past 12 months, has t he [employer], gas, oil or water [employer] threatened to shut off services in your [...] 92 07/22/2024 3:48 PM EDT Temperature 36.6 C (97.8 F) 07/22/2024 3:48 PM EDT Respiratory Rate 16 07/22/2024 3:48 PM EDT [...] 09/15/2021, 09/15/2021, Additional history exists Depression Monitoring 07/26/2024 01/27/2024, 024 Diabetes: Hemoglobin A1C 11/12/2024 025, 11/22/2023, 07/11/2023, Additional history exists Eye Exam 11/22/2024 11/22/2022 Influenza Vaccine (#1) 2025 , 02/04/2019, 06/11/2017, Additional history exists SDOH Screening 07/15/2025 07/15/2024 Diabetes: Foot Exam [...] 07/12, 05/04/2015 Hepatitis C Screening Completed 08/10/2021 CT Colonography Discontinued FIT DNA/Cologuard Discontinued FIT [...] Name Priority Date/Time Associated Diagnosis Comments POCT GLYCATED HEMOGLOBIN, TOTAL Routine 05/15/2024 11:23 AM EST Type 2 diabetes mellitus without complication, without long-term current use of insulin ([facility]) LIPID PANEL, STANDARD Routine 01/02/2023 12:41 PM EDT Type 2 diabetes mellitus with chronic kidney disease, without long-term current use of insulin, unspecified CKD stage ([facility]) DIABETES EYE EXAM Routine 11/22/2022 ZZZ HISTORICAL HEPATITIS C AB W/REFL TO HCV RNA, QN, PCR Routine 08/10/2021 9:08 AM EDT COLONOSCOPY Routine 01/07/2017 from Last 3 Months or Most Recently Relevant to Health Maintenance Results * (ABNORMAL) POCT HGB A1C (05/15/2024 11:23 AM EST) Hemoglobin A1C 6.3(A) 4.0 - 6.0 % QC Media Lot # [id number] Lot# Expiration Date [id number] Blood 05/15/2024 11:2 3 AM EST Tana Asif BIG DATA LEAD POINT OF CARE TEST ENTER/EDIT ORDERABLES Final Result * Lipid Panel, Standard (01/02/2023 12:41 PM EDT) Triglycerides 114 <150 mg/dL [facility] Comment:Desirable Triglyceri de: less than 150 mg/dLBorderline High Triglyceride 150-199 mg/dLHigh Triglyceride: 200-499 mg/dLVery High Triglyceride: greater than or equal to 5OO mg/dL Cholesterol 137 <200 mg/dL [facility] Comment:Desirable Cholestero l: less than 200 mg/dLBorderline High Cholesterol: 200-239 mg/dLHigh Cholesterol: greater than 239 mg/dL LDL Cholesterol Calculated 71 <100 mg/dL [facility] Comment:Desirable LDL: less than 100 mg/dLNear Optimal/Above Optimal LDL: 110- 129 mg/dLBorderline High LDL: 130-159 mg/dLHigh LDL: 160-189 mg/dLVery High LDL: greater than or equal to 190 mg/dL HDL Cholesterol 44 >40 mg/dL [facility] Comment:Desirable HDL: great er than 40 mg/dL Note: This HDL assay may give artificially low results in patients with liver disease. Blood Venous blood specimen / Unknown 01/02/2023 12:41 PM EDT 01/02/2023 1:23 PM EDT Liz Cary MD LAB BLOOD ORDERABLES Final Res ult [facility] [address] [place] [phone] * Diabetes Eye Exam (11/22/2022) Eye Exam Normal Normal Liz Cary MD HEALTH MAINTENANCE Final Resul t * HEPATITIS C AB W/REFL TO HCV RNA, QN, PCR (08/10/2021 9:08 AM EDT) HEPATITIS C ANTIBODY NON-REACT STEVE NON-REACT STEVE [facility] INDEX 0.01 <1.00 [facility] Comment: HCV antibody was non-reactive. There is no laboratory evidence of HCV infection. In most cases, no further action is required. However, if recent HCV exposure is suspected, a test for HCV RNA (test code 03944) is suggested. For additional information please refer to http://education.Fuze.pickrset/faq/NHN77a9 (This link is being provided for informational/ educational purposes only.) 08/10/2021 9:08 AM EDT Pinky Cantrell COLLEGE [employer] HISTORICAL/NON ORDERABLE LABS F inal Result [facility] [address] * Hm Colonoscopy (01/07/2017) Historical Provider HEALTH MAINTENANCE Final Result from Last 3 Months or Most Recently Relevant to Health Maintenance Insurance [facility] LONG-TERM OPTIONS (O D-SNP) [employer] [id number] Care Teams Infrastructure Technician Relationship Specialty Start Date End Date Liz Cary MD [address] [place] [id number] PCP - General Family Medicine 01/04/22
== END 2024-12-31 08:40 | disposition home or self-care (01) ==
LOC: HO.MAMMO 08:39
PROVIDERS: PCP General Practice; Visit Provider General Practice
DX: Z12.31 Encounter for screening mammogram for malignant neoplasm of breast (principal)
CPT/HCPCS: 77063; 77067

== ENCOUNTER → 2024-12-31 08:45 | Outpatient (BNV) | payer OTHER, SELFPAY | PROVIDERS: PCP General Practice; Visit Provider Internal Medicine | DX: Z12.31 Encounter for screening mammogram for malignant neoplasm of breast (principal) | CPT/HCPCS: 77063; 77067 ==

== ENCOUNTER 2025-03-09 11:45 | Outpatient (REF) | payer OTHER, SELFPAY ==
[2025-03-09 14:11] LABS: Alanine Aminotransferase 11 U/L (0-31); Albumin Level 4.4 g/dL (3.5-5.0); Alkaline Phosphatase 107 U/L (39-117); Anion Gap 14 (12-20); Aspartate Amino Transferase 26 U/L (5-31); Blood Urea Nitrogen 13 mg/dL (9-16); Calcium 9.6 mg/dL (8.4-10.2); Carbon Dioxide 29 mmol/L (22-29); Chloride 103 mmol/L (96-108); Cholesterol 145 mg/dL (<200); Estimated Glomerular Filt Rate > 60; HDL Cholesterol 44 mg/dL (>40); Potassium 3.6 mmol/L (3.3-5.1); Sodium 142 mmol/L (135-145); Total Protein 7.6 g/dL (6.5-8.0); Triglycerides 130 mg/dL (<150)
--- OUTSIDE RECORDS SUMMARY | 2025-03-09 15:12 | XMS_ITS | Clinical Summary ---
Author Organization [facility] Address [address] [place] [address] Phone Care Team Providers Care Water Treatment Plant Repairer Name Role Phone Liz Cary MD Primary [...] capsules (400 mg total) nightly at bedtime. 150 capsule 5 5 Active Encounters Date Type Department Care Team Description 02/18/2025 8:00 AM EDT Telemedicine [facility] Neurology at [address] [address] Brittanie Haynes PA-C Trigeminal neuralgia of left side of face (Primary Dx) 01/20/2025 Refill [facility] Neurology at [address] [address] Brittanie Haynes PA-C Medication Refill from Last 3 Months Social History Tobacco Use Types Packs/Day Years [...] 03/25/2024 10:56 AM EST Plan of Treatment Health Maintenance Due Date Last Done Comments CREATININE LEVEL 1947 POTASSIUM LEVEL 1947 DEPRESSION SCREENING 1959 SMOKING Hx and SMOKELESS TOBACCO SCREENING 1960 HEPATITIS C SCREENING 1965 OSTEOPOROSIS SCREENING INITIAL (ONE-TIME) 2012 RSV VACCINE (1 - 1-dose 75+ series) 2022 INFLUENZA VACCINE (#1) 2024 9, 06/11/2017, 04/26/2016, Additional history exists COVID-19 VACCINE ( season) 2025 07/11/2023, 09/15/2021, 08/24/2021 LIPID PANEL 01/03/2028 01/02/2023 [...] topic Medical Devices Not on file Insurance [facility] MEDICARE REPLACEMENT [employer] [id number] [facility] MEDICARE REPLACEMENT [employer] [id number] [facility] MEDICARE REPLACEMENT [facility] MEDICARE REPLACEMENT [facility] MEDICARE REPLACEMENT [facility] MEDICARE REPLACEMENT [place] [id number] Care Teams Water Treatment Plant Repairer Relationship Specialty Start Date End Date Liz Cary MD PCP - General Family Medicine 12/03/23 Additional Source Comments The information contained in this document represents components of the legal health record. It is not the complete legal health record.[facility]
--- OUTSIDE RECORDS SUMMARY | 2025-03-09 15:12 | XMS_ITS | Encounter Summary ---
Author Organization [facility], Address [address] [place] [address] Phone Care Team Providers Care Starcher And Tenter Range Feeder Name Role Phone Missy Severino NP Primary Care Provider [phone] Encounter Details Date Type Department Care Team (Late st Contact Info) Description 07/25/2021 Documentation Only [facility], [address] [place] [address] iMah Guzman MD [address] [place] [address] Social History Tobacco Use Types [...] on filedocumented in this encounter Care Teams Starcher And Tenter Range Feeder Relationship Specialty Start Date End Date Missy Severino NP PCP - General 03/17/19 documented as of this encounter
--- OUTSIDE RECORDS SUMMARY | 2025-03-09 15:12 | XMS_ITS | Clinical Summary ---
Author Organization [employer] [employer] [facility] ity Address [address] [place] [address] Care Team Providers Care Butadiene Converter Utility Operator Name Role Phone Unavailable Primary Care Provider [...] 1997 Zoster Vaccines (1 of 2) 1997 RSV Immunization Adult Patie nts (1 - 1-dose 75+ series) 2022 Depression Screening 2024 COVID-19 Vaccine ( - 2023-2 5 season) 2025 Influenza Vaccine (#1) 2025 HIB Vaccines Aged [...]
--- OUTSIDE RECORDS SUMMARY | 2025-03-09 15:12 | XMS_ITS | Clinical Summary ---
Author Organization [facility], Address [address] [place] [address] [place] [address] Phone Care Team Providers Care Circular Tank Cooper Name Role Phone Missy Severino NP Primary Care Provider [phone] Allergies Active Allergy Reactions Criticality Noted Date [...] Chronic kidney disease stage 2 01/27/2020 Immunizations Immunization Administration Dates Next Due Influenza Split High [...] Due Date Last Done Comments Pneumococcal Vaccine: 50+ Years (2 of 2 - PCV) 06/11/2018 06/11/2017, 02/27/2015 Diabetes: Hemoglobin A1C 08/03/2019 Diabetes: Ophthalmology Exam 08/03/2019 Diabetes: Pedal Pulse Checked 08/03/2019 Diabetes: Sensory Foot Exam 08/03/2019 Diabetes: Visual Foot Exam 08/03/2019 Influenza Vaccine (#1) 2025 8, 02/27/2015 Pneumococcal Vaccine: Peds ( 0 to 5 Years) and At-Risk Patients (6 to 49 Years) Discontinued 06/11/2017, 02/27/2015 Hepatitis B Vaccine Aged Out No longe r eligible based on patient's age to complete this topic Insurance [facility] Dual SNP ([id number]) [employer] [employer] [id number] Care Teams Circular Tank Cooper Relationship Specialty Start Date End Date Missy Severino NP PCP - General 03/17/19
--- OUTSIDE RECORDS SUMMARY | 2025-03-09 15:12 | XMS_ITS | Encounter Summary ---
Author Organization [facility] Address [address] [place] [phone] Phone Care Team Providers Care Inspector Welded Parts Name Role Phone Liz Cary MD Primary Care Provider + Encounter Details Date Type Department Care Team (Late st Contact Info) Description 12/27/2023 Procedure Pass [facility] [address] [place] [address] Social History Tobacco Use Types Packs/Day Years [...] on filedocumented in this encounter Care Teams Inspector Welded Parts Relationship Specialty Start Date End Date Liz Cary MD PCP - General Family Medicine 12/03/23 documented as of this encounter Additional Source Comments The information contained in this document represents components of the legal health record. It is not the complete legal health record.[facility]
== END 2025-03-09 11:46 | disposition home or self-care (01) ==
LOC: HO.HHCL 11:45
PROVIDERS: PCP General Practice; Visit Provider General Practice
DX: E11.9 Type 2 diabetes mellitus without complications (principal)
CPT/HCPCS: 36415; 80053; 80061